=== PATIENT | male | born 1940 | race Caucasian/White ===

== ENCOUNTER → 2016-08-21 | Outpatient (CLI) | payer OTHER ==
[2016-08-21 10:50] LABS: ABSOLUTE BASOPHILS # (AUTO) 0.1 10^3/uL (0.0-0.2); ABSOLUTE EOSINOPHILS # (AUTO) 0.3 10^3/uL (0.0-0.6); ABSOLUTE LYMPHOCYTES (AUTO) 1.8 10^3/uL (0.5-4.7); ABSOLUTE MONOCYTES (AUTO) 0.5 10^3/uL (0.1-1.4); ABSOLUTE NEUT (AUTO) 4.9 10^3/uL (1.7-8.2); BASOPHILS % (AUTO) 0.8 % (0-2); EOSINOPHILS % (AUTO) 3.5 % (0-6); HEMATOCRIT 44.9 % (37.9-51.0); HEMOGLOBIN 14.9 g/dL (13.5-17.0); HGB HCT DIFFERENCE -0.2; LYMPHOCYTES % (AUTO) 24.3 % (13-45); MEAN CORPUSCULAR HEMOGLOBIN 28.8 pg (27.0-33.4); MEAN CORPUSCULAR HGB CONC 33.1 g/dL (32.0-36.0); MEAN CORPUSCULAR VOLUME 87 fl (80-97); MONOCYTES % (AUTO) 6.6 % (3-13); RED BLOOD COUNT 5.18 10^6/uL (4.35-5.55); RED CELL DISTRIBUTION WIDTH 16.1 % (11.5-14.0); SEGMENTED NEUTROPHILS % (AUTO) 64.8 % (42-78); WHITE BLOOD COUNT 7.6 10^3/uL (4.0-10.5)
[2016-08-21 10:55] LABS: APPEARANCE,URINE CLEAR; BILIRUBIN,URINE NEGATIVE (NEGATIVE); GLUCOSE, URINE NEGATIVE (NEGATIVE); KETONES,URINE NEGATIVE (NEGATIVE); LEUKOCYTE ESTERASE,URINE NEGATIVE (NEGATIVE); NITRITE,URINE NEGATIVE (NEGATIVE); PROTEIN,URINE NEGATIVE (NEGATIVE); URINE SPECIFIC GRAVITY 1.014; UROBILINOGEN,URINE NEGATIVE mg/dL (<2.0)
[2016-08-21 11:12] LABS: ALBUMIN 4.4 g/dL (3.5-5.0); ANION GAP 13 (5-19); BLOOD UREA NITROGEN 23 mg/dL (7-20); CALCIUM 9.3 mg/dL (8.4-10.2); CARBON DIOXIDE 23 mmol/L (22-30); CHLORIDE 103 mmol/L (98-107); CREATININE RESULT 1.44 mg/dL (0.52-1.25); GLUCOSE 117 mg/dL (75-110); PHOSPHORUS 3.8 mg/dL (2.5-4.5); POTASSIUM 4.4 mmol/L (3.6-5.0); SODIUM 138.5 mmol/L (137-145)
[2016-08-21 11:13] LABS: URINE CREATININE 133.6 mg/dL (22-328); URINE PROTEIN 12.6 mg/dL (<12)
[2016-08-24 07:04] LABS: VITAMIN D 25-HYDROXY 23.6 ng/mL (30.0-100.0)
== END ==
LOC: OD 09:55
PROVIDERS: ATTEND Internal Medicine Nephrology
DX: N18.3 Chronic kidney disease, stage 3 (moderate) (principal); R80.9 Proteinuria, unspecified; D63.1 Anemia in chronic kidney disease
CPT/HCPCS: 36415; 80048; 81001; 82040; 82306; 82570; 83970; 84100; 84156; 85025

== ENCOUNTER → 2017-02-14 | Outpatient (CLI) | payer OTHER ==
[2017-02-14 15:11] LABS: HEMATOCRIT 43.6 % (37.9-51.0); HEMOGLOBIN 14.3 g/dL (13.5-17.0); MEAN CORPUSCULAR HEMOGLOBIN 28.6 pg (27.0-33.4); MEAN CORPUSCULAR HGB CONC 32.8 g/dL (32.0-36.0); MEAN CORPUSCULAR VOLUME 87 fl (80-97); PLATELET COUNT 248 10^3/uL (150-450); RED CELL DISTRIBUTION WIDTH 15.5 % (11.5-14.0); WHITE BLOOD COUNT 7.2 10^3/uL (4.0-10.5)
[2017-02-14 15:14] LABS: APPEARANCE,URINE CLEAR; BILIRUBIN,URINE NEGATIVE (NEGATIVE); COLOR,URINE YELLOW; GLUCOSE, URINE NEGATIVE (NEGATIVE); KETONES,URINE NEGATIVE (NEGATIVE); LEUKOCYTE ESTERASE,URINE NEGATIVE (NEGATIVE); NITRITE,URINE NEGATIVE (NEGATIVE); PROTEIN,URINE NEGATIVE (NEGATIVE); URINE SPECIFIC GRAVITY 1.019; UROBILINOGEN,URINE NEGATIVE mg/dL (<2.0)
[2017-02-14 15:25] LABS: ALANINE AMINOTRANSFERASE 47 U/L (21-72); ALBUMIN 4.6 g/dL (3.5-5.0); ALKALINE PHOSPHATASE 81 U/L (38-126); ANION GAP 13 (5-19); ASPARTATE AMINO TRANSFERASE 27 U/L (17-59); BILIRUBIN,DIRECT 0.3 mg/dL (0.0-0.4); BILIRUBIN,TOTAL 0.3 mg/dL (0.2-1.3); BLOOD UREA NITROGEN 25 mg/dL (7-20); CALCIUM 9.8 mg/dL (8.4-10.2); CARBON DIOXIDE 24 mmol/L (22-30); CHLORIDE 104 mmol/L (98-107); GLUCOSE 101 mg/dL (75-110); POTASSIUM 4.1 mmol/L (3.6-5.0); SODIUM 141.1 mmol/L (137-145); TOTAL PROTEIN 7.6 g/dL (6.3-8.2)
== END ==
LOC: OD 14:25
PROVIDERS: ATTEND Internal Medicine Nephrology
DX: I12.9 Hypertensive chronic kidney disease with stage 1 through stage 4 chronic kidney disease, or unspecified chronic kidney disease (principal); N18.3 Chronic kidney disease, stage 3 (moderate); R80.9 Proteinuria, unspecified; E11.9 Type 2 diabetes mellitus without complications
CPT/HCPCS: 36415; 80053; 81001; 85027

== ENCOUNTER → 2017-11-18 | Outpatient (CLI) | payer OTHER ==
[2017-11-18 09:31] LABS: HEMATOCRIT 43.8 % (37.9-51.0); HEMOGLOBIN 14.7 g/dL (13.5-17.0); MEAN CORPUSCULAR HEMOGLOBIN 29.3 pg (27.0-33.4); MEAN CORPUSCULAR HGB CONC 33.5 g/dL (32.0-36.0); MEAN CORPUSCULAR VOLUME 88 fl (80-97); PLATELET COUNT 206 10^3/uL (150-450); RED CELL DISTRIBUTION WIDTH 15.4 % (11.5-14.0); WHITE BLOOD COUNT 7.2 10^3/uL (4.0-10.5)
[2017-11-18 09:37] LABS: APPEARANCE,URINE CLEAR; BILIRUBIN,URINE NEGATIVE (NEGATIVE); COLOR,URINE YELLOW; GLUCOSE, URINE NEGATIVE (NEGATIVE); KETONES,URINE NEGATIVE (NEGATIVE); LEUKOCYTE ESTERASE,URINE NEGATIVE (NEGATIVE); NITRITE,URINE NEGATIVE (NEGATIVE); PROTEIN,URINE NEGATIVE (NEGATIVE); URINE SPECIFIC GRAVITY 1.016
[2017-11-18 10:04] LABS: ANION GAP 12 (5-19); BLOOD UREA NITROGEN 18 mg/dL (7-20); CALCIUM 9.4 mg/dL (8.4-10.2); CARBON DIOXIDE 26 mmol/L (22-30); CHLORIDE 103 mmol/L (98-107); GLUCOSE 92 mg/dL (75-110); POTASSIUM 4.2 mmol/L (3.6-5.0); SODIUM 140.5 mmol/L (137-145)
== END ==
LOC: OD 08:46
PROVIDERS: ATTEND Physician Assistant Medical
DX: I12.9 Hypertensive chronic kidney disease with stage 1 through stage 4 chronic kidney disease, or unspecified chronic kidney disease (principal); E11.22 Type 2 diabetes mellitus with diabetic chronic kidney disease; N18.3 Chronic kidney disease, stage 3 (moderate); R80.9 Proteinuria, unspecified
CPT/HCPCS: 36415; 80048; 81001; 85027

== ENCOUNTER 2019-09-18 17:21 | Observation (INO) | payer OTHER, MEDICARE ==
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
--- NOTE | 2019-09-18 18:39 | RADIOLOGY REPORT (SQ) ---
EXAM DESCRIPTION: CHEST 2 VIEWS IMAGES COMPLETED DATE/TIME: 09/18/2019 6:22 pm REASON FOR STUDY: chest pain COMPARISON: None. EXAM PARAMETERS: NUMBER OF VIEWS: two views TECHNIQUE: Digital Frontal and Lateral radiographic views of the chest acquired. RADIATION DOSE: NA LIMITATIONS: none FINDINGS: LUNGS AND PLEURA: Hyperinflation of the lungs and some flattening of the diaphragms. Bib asilar slight scarring or atelectasis. Mild increased interstitial markings in the right lower lung zone, may be on a chronic basis. No pneumothorax or pleural effusion. MEDIASTINUM AND HILAR STRUCTURES: No masses or contour abnormalities. HEART AND VASCULAR STRUCTURES: Cardiomegaly. No evidence for failure. BONES: No acute findings. HARDWARE: Prior anterior median sternotomy and CABG. OTHER: No other significant finding. IMPRESSION: 1. Chronic mild changes in the lungs. No acute pulmonary consolidation. 2. Additional findings as above. TECHNICAL DOCUMENTATION: JOB ID: [id number] 2010 [employer]- All Rights Reserved Reading location - IP/workstation name: [email or web address]
--- NOTE | 2019-09-18 18:45 | RADIOLOGY REPORT (SQ) ---
EXAM DESCRIPTION: CT HEAD WITHOUT IMAGES COMPLETED DATE/TIME: 09/18/2019 6:25 pm REASON FOR STUDY: syncopal events daily, on anticoagulants COMPARISON: None. TECHNIQUE: Axial images acquired through the brain without intravenous contrast. Images reviewed wi th bone, brain and subdural windows. Additional sagittal and coronal reconstructions were generated. Images stored on PACS. All CT scanners at this facility use dose modulation, iterative reconstruction, and/or weight based d osing when appropriate to reduce radiation dose to as low as reasonably achievable (ALARA). [facility]: Dose Right [facility]: CareDose [facility]: Dose Right [facility]: Teradose 4D [facility]: uSamp RADIATION DOSE: CT Rad equipment meets quality standard of care and radiation dose reduction techniq ues were employed. CTDIvol: 53.2 mGy. DLP: 1044 mGy-cm. LIMITATIONS: None. FINDINGS: VENTRICLES: Normal size and contour. The cisterns are patent. CEREBRUM: No masses. No hemorrhage. No midline shift. No evidence for acute infarction. Normal gra y/white matter differentiation. No areas of low density in the white matter. CEREBELLUM: No masses. No hemorrhage. No alteration of density. No evidence for acute infarction. EXTRAAXIAL SPACES: No fluid collections. No masses. ORBITS AND GLOBE: No intra- or extraconal masses. Normal contour of globe without masses. CALVARIUM: No fracture. PARANASAL SINUSES: No fluid or mucosal thickening. SOFT TISSUES: No mass or hematoma. OTHER: Atherosclerotic changes involving the cavernous portion of the internal carotid arteries. IMPRESSION: 1. No acute intracranial abnormality. EVIDENCE OF ACUTE STROKE: NO. COMMENT: Quality ID # [id number]: Final reports with documentation of one or more dose reduction techniques (e.g., Automated exposure control, adjustment of the mA and/or kV according to patient size, use of iterative reconstruction technique) TECHNICAL DOCUMENTATION: JOB ID: [id number] 2010 [employer]- All Rights Reserved Reading location - IP/workstation name: [email or web address]
[2019-09-18 18:51] LABS: ALBUMIN 4.3 g/dL (3.5-5.0); ALKALINE PHOSPHATASE 72 U/L (38-126); ANION GAP 8 (5-19); ASPARTATE AMINO TRANSFERASE 28 U/L (17-59); BILIRUBIN,DIRECT 0.1 mg/dL (0.0-0.4); BILIRUBIN,TOTAL 0.6 mg/dL (0.2-1.3); BLOOD UREA NITROGEN 26 mg/dL (7-20); CALCIUM 8.9 mg/dL (8.4-10.2); CARBON DIOXIDE 31 mmol/L (22-30); CHLORIDE 96 mmol/L (98-107); CREATINE KINASE 116 U/L (55-170); GLUCOSE 100 mg/dL (75-110); POTASSIUM 3.2 mmol/L (3.6-5.0); TOTAL PROTEIN 7.9 g/dL (6.3-8.2)
[2019-09-18 18:56] LABS: ABSOLUTE BASOPHILS # (AUTO) 0.1 10^3/uL (0.0-0.2); ABSOLUTE EOSINOPHILS # (AUTO) 0.3 10^3/uL (0.0-0.6); ABSOLUTE NEUT (AUTO) 5.2 10^3/uL (1.7-8.2); BASOPHILS % (AUTO) 1.2 % (0-2); EOSINOPHILS % (AUTO) 3.9 % (0-6); HEMATOCRIT 29.1 % (37.9-51.0); HEMOGLOBIN 9.3 g/dL (13.5-17.0); LYMPHOCYTES % (AUTO) 22.8 % (13-45); MEAN CORPUSCULAR HEMOGLOBIN 24.6 pg (27.0-33.4); MEAN CORPUSCULAR VOLUME 77 fl (80-97); MONOCYTES % (AUTO) 11.5 % (3-13); PLATELET COUNT 377 10^3/uL (150-450); RED BLOOD COUNT 3.78 10^6/uL (4.35-5.55); RED CELL DISTRIBUTION WIDTH 18.3 % (11.5-14.0); SEGMENTED NEUTROPHILS % (AUTO) 60.6 % (42-78); TOTAL CELLS COUNTED % (AUTO) 100 %; WHITE BLOOD COUNT 8.6 10^3/uL (4.0-10.5)
[2019-09-18 19:04] LABS: CREATINE KINASE MB 1.49 ng/mL (<4.55); TROPONIN I 0.016 ng/mL
--- NOTE | 2019-09-18 19:38 | EKG REPORT ---
SEVERITY:- ABNORMAL ECG - ATRIAL FIBRILLATION RBBB AND LAFB : Confirmed by: Ayush Prater MD 18-Sep-2019 19:37:51
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
[2019-09-18] MEDS ORDERED: NITROGLYCERIN 0.4 MG/TAB 25 TAB/BOTTLE SL PRN (23:23)
[2019-09-18] MEDS ORDERED: ONDANSETRON HCL INJ/PF 4 MG/2 ML SDV IV PRN (23:24)
[2019-09-18] MEDS ORDERED: ACETAMINOPHEN 325 MG TABLET PO PRN (23:24)
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
[2019-09-18] MEDS: METOPROLOL SUCCINATE 25 MG TAB.SR.24H PO SCH (23:57)
[2019-09-18] MEDS ORDERED: POTASSIUM CHLORIDE 10 MEQ TABLET.ER PO ONE (23:59)
[2019-09-18] MEDS ORDERED: ASPIRIN 325 MG TABLET PO ONE (23:59)
[2019-09-19 02:16] LABS: CREATINE KINASE MB 1.36 ng/mL (<4.55); TROPONIN I 0.02 ng/mL
[2019-09-19] MEDS ORDERED: HEPARIN SOD (PORCINE) 5,000 UNIT/ML 1 ML VIAL SUBCUT SCH (06:00)
[2019-09-19] MEDS: NORMAL SALINE 1000 ML 1,000 ML IV PRN ×2 (06:08→17:12)
[2019-09-19 07:55] LABS: HEMATOCRIT 28.4 % (37.9-51.0); MEAN CORPUSCULAR HEMOGLOBIN 24.2 pg (27.0-33.4); MEAN CORPUSCULAR HGB CONC 31.6 g/dL (32.0-36.0); MEAN CORPUSCULAR VOLUME 76 fl (80-97); PLATELET COUNT 339 10^3/uL (150-450); RED BLOOD COUNT 3.71 10^6/uL (4.35-5.55)
[2019-09-19 08:19] LABS: ANION GAP 9 (5-19); BLOOD UREA NITROGEN 26 mg/dL (7-20); CALCIUM 8.9 mg/dL (8.4-10.2); CARBON DIOXIDE 27 mmol/L (22-30); CHLORIDE 99 mmol/L (98-107); CREATINE KINASE 106 U/L (55-170); GLUCOSE 106 mg/dL (75-110); POTASSIUM 3.7 mmol/L (3.6-5.0)
[2019-09-19 08:53] LABS: CREATINE KINASE MB 1.37 ng/mL (<4.55); TROPONIN I 0.018 ng/mL
--- NOTE | 2019-09-19 09:26 | CDI QUERY ---
CDI Query CDI Review: Dear Provider, If able to determine, please further specify type A FIB noted in progress notes. PAROXYSMAL PERSISTENT OTHER Thanks, Neda Babcock, CDI [phone]
[2019-09-19] MEDS: ASPIRIN 325 MG TABLET PO SCH (09:40)
[2019-09-19] MEDS: METOPROLOL SUCCINATE 25 MG TAB.SR.24H PO SCH ×2 (09:41→22:25)
[2019-09-19] MEDS ORDERED: APIXABAN 5 MG TABLET PO SCH (10:00)
--- NOTE | 2019-09-19 13:41 | PDOC PROGRESS REPORT ---
Subjective Progress Note for:: 09/19/19 Subjective:: Patient was seen on morning rounds. He was found sitting up to the edge of the bed, comfortably, on room air. He reports that he is feeling well; denies any further episodes of chest discomfort. Further denies palpitations and dyspnea. At that time he chose to take a phone call and had no further interactions with me. He did nod his head yes when asked if I could continue with my assessment. No concerns per nursing. Reason For Visit: CHEST PAIN, CKD, HYPOKALEMIA Physical Exam Vital Signs: Temp Pulse Resp BP Pulse Ox 97.6 F 76 18 132/54 H 98 09/19/19 11:08 09/19/19 11:08 09/19/19 11:08 09/19/19 11:08 09/19/19 11:08 Intake & Output 09/18/19 09/19/19 09/20/19 06:59 06:59 06:59 Intake Total 595 Balance 595 Weight 117.9 kg General appearance: PRESENT: no acute distress, disheveled, morbidly obese, well-developed, well-nourished Head exam: PRESENT: atraumatic, normocephalic Eye exam: PRESENT: conjunctiva pink, EOMI, PERRLA. ABSENT: scleral icterus Mouth exam: PRESENT: moist, tongue midline Teeth exam: PRESENT: poor dentation Respiratory exam: PRESENT: clear to auscultation varsha, symmetrical, unlabored. ABSENT: rales, rhonchi, wheezes Cardiovascular exam: PRESENT: irregular rhythm, +S1, +S2. ABSENT: diastolic murmur, rubs, systolic murmur Pulses: PRESENT: normal dorsalis pedis pul Vascular exam: PRESENT: normal capillary refill GI/Abdominal exam: PRESENT: normal bowel sounds, soft. ABSENT: distended, guarding, mass, organolmegaly, rebound, tenderness Rectal exam: PRESENT: deferred Extremities exam: PRESENT: full ROM. ABSENT: calf tenderness, clubbing, pedal edema Musculoskeletal exam: PRESENT: ambulatory Neurological exam: PRESENT: alert, awake, oriented to person, oriented to place, oriented to time, oriented to situation, CN II-XII grossly intact. ABSENT: motor sensory deficit Psychiatric exam: PRESENT: appropriate affect, normal mood. ABSENT: homicidal ideation, suicidal ideation Skin exam: PRESENT: dry, intact, warm. ABSENT: cyanosis, rash Results Laboratory Results: 09/19/19 07:37 09/19/19 07:37 09/18/19 09/18/19 09/19/19 18:10 18:10 07:37 WBC 8.6 RBC 3.78 L Hgb 9.3 L Hct 29.1 L MCV 77 L MCH 24.6 L MCHC 32.0 RDW 18.3 H Plt Count 377 Seg Neutrophils % 60.6 Sodium 134.8 L 135.3 L Potassium 3.2 L 3.7 Chloride 96 L 99 Carbon Dioxide 31 H 27 Anion Gap 8 9 BUN 26 H 26 H Creatinine 2.56 H 2.49 H Est GFR ( Amer) 30 L 31 L Glucose 100 106 Calcium 8.9 8.9 Total Bilirubin 0.6 AST 28 Alkaline Phosphatase 72 Total Protein 7.9 Albumin 4.3 09/19/19 07:37 WBC 8.0 RBC 3.71 L Hgb 9.0 L Hct 28.4 L MCV 76 L MCH 24.2 L MCHC 31.6 L RDW 18.0 H Plt Count 339 Seg Neutrophils % Sodium Potassium Chloride Carbon Dioxide Anion Gap BUN Creatinine Est GFR ( Amer) Glucose Calcium Total Bilirubin AST Alkaline Phosphatase Total Protein Albumin 09/18/19 09/18/19 09/18/19 18:10 18:10 19:10 Creatine Kinase 116 CK-MB (CK-2) 1.49 Troponin I 0.016 0.016 NT-Pro-B Natriuret Pep 2009 H 09/19/19 09/19/19 09/19/19 01:06 01:06 07:37 Creatine Kinase 111 106 CK-MB (CK-2) 1.36 Troponin I 0.020 NT-Pro-B Natriuret Pep 09/19/19 07:37 Creatine Kinase CK-MB (CK-2) 1.37 Troponin I 0.018 NT-Pro-B Natriuret Pep Impressions: Chest X-Ray 09/18/19 18:00 IMPRESSION: 1. Chronic mild changes in the lungs. No acute pulmonary consolidation. 2. Additional findings as above. Head CT 09/18/19 18:04 IMPRESSION: 1. No acute intracranial abnormality. EVIDENCE OF ACUTE STROKE: NO. Assessment and Plan - Diagnosis (1) Chest pain Qualifiers: Chest pain type: unspecified Qualified Code(s): R07.9 - Chest pain, unspecified Is this a current diagnosis for this admission?: Yes Plan: No further episodes per patient. Continue to monitor on telemetry. Troponins indeterminately elevated but overall negative; 0.016-> 0.016-> 0.020- > 0.018 Continue daily statin resume home dose Xarelto antihypertensives. Patient reports that he has had a cardiac stress test by his primary gas booster engineer, [facility], within the last year. Close outpatient follow-up. (2) Acute renal failure superimposed on chronic kidney disease Qualifiers: Acute renal failure type: unspecified Chronic kidney disease stage: stage 3 (moderate) Qualified Code(s): N17.9 - Acute kidney failure, unspecified; N18.3 - Chronic kidney disease, stage 3 (moderate) Is this a current diagnosis for this admission?: Yes Plan: Cr 2.56-> 2.49 Last lab for comparison in 2018 showed creatinine 1.65. It is possible that his creatinine today represents progression of his chronic kidney disease and not an acute injury. We will continue gentle IV fluids. Avoid nephrotoxic medications as able. Monitor urine output. Follow-up chemistry (3) Atrial fibrillation Qualifiers: Atrial fibrillation type: unspecified Qualified Code(s): I48.91 - Unspecified atrial fibrillation Is this a current diagnosis for this admission?: Yes Plan: Unable to determine type of atrial fibrillation. Patient is unaware of his rhythm history; does state he has been told he has an abnormal rhythm in the past. Noted to be in atrial fibrillation on EKG and telemetry. All medications have now been reconciled. We will continue home dose Xarelto. Continue home dose amiodarone and metoprolol. Continue to monitor on telemetry. (4) Syncope Qualifiers: Syncope type: unspecified Qualified Code(s): R55 - Syncope and collapse Is this a current diagnosis for this admission?: Yes Plan: Possibly from his atrial fibrillation. Echocardiogram pending. Fall precautions. - Time Time Spent with patient: 35 or more minutes Medications reviewed and adjusted accordingly: Yes Anticipated Discharge Disposition: Home, Self Care Anticipated Discharge Timeframe: within 24 hours
[2019-09-19 14:52] LABS: CREATINE KINASE MB 1.37 ng/mL (<4.55); TROPONIN I 0.016 ng/mL
--- NOTE | 2019-09-19 15:03 | EKG REPORT ---
SEVERITY:- ABNORMAL ECG - ATRIAL FIBRILLATION RIGHT BUNDLE BRANCH BLOCK : Confirmed by: Ayush Prater MD 19-Sep-2019 15:02:26
--- NOTE | 2019-09-19 15:45 | XCELERA REPORT ---
[address] [address] Transthoracic Echocardiogram Report Name: FIDENCIO BARRIOS Age: 78 yrs Gender: Male : 1940 Patient Status: Inpatient Patient Location: [address] [place], [place] [address] Study Date: 09/19/2019 10:24 AM History: Atrial fibrillation Syncope Height: 72 in Weight: 260 lb BSA: 2.4 m2 Procedure: A complete two-dimensional transthoracic echocardiogram was performed (2D, M-mode, spectral and color flow Doppler). The study was technically difficult with many images being suboptimal in quality. Study Quality: Technically suboptimal. Reason For Study: afib, syncope Previous Evaluation: No previous studies were available. History: Atrial fibrillation Suyncope. Ordering Physician: KIMO RAMIREZ Performed By: Millie Mayorga Interpretation Summary Left ventricular systolic function is normal. The Ejection Fraction estimate is 55-60% The right ventricle is normal in size and function. There is a mild amount of mitral regurgitation There is no aortic valve stenosis There is a trace amount of aortic regurgitation There is a trace amount of tricuspid regurgitation There is mild pulmonary hypertension by echo Minimal pericardial effusion. MMode/2D Measurements & Calculations RVDd: 4.1 cm LVIDd: 5.1 cm FS: 33.8 % Ao root diam: 3.2 cm IVSd: 1.1 cm LVIDs: 3.4 cm EDV(Teich): 122.3 ml Ao root area: 7.9 cm2 LVPWd: 1.1 cm ESV(Teich): 46.1 ml LA dimension: 4.1 cm EF(Teich): 62.3 % Doppler Measurements & Calculations MV E max damari: MV P1/2t max damari: Ao V2 max: LV V1 max P.4 cm/sec 123.9 cm/sec 160.6 cm/sec 5.1 mmHg MV A max damari: MV P1/2t: 79.3 msec Ao max PG: LV V1 max: 103.7 cm/sec MVA(P1/2t): 2.8 cm2 10.3 mmHg 113.0 cm/sec MV E/A: 1.2 MV dec slope: LV dP/dt: 3029 mmHg/s 457.4 cm/sec2 MV dec time: 0.26 sec PA V2 max: TR max damari: MV P1/2t-pr_phl: 107.1 cm/sec 266.0 cm/sec 79.3 msec PA max P.6 mmHgTR max P.3 mmHg Left Ventricle The left ventricle is grossly normal size. There is moderate concentric left ventricular hypertrophy. Left ventricular systolic function is normal. The Ejection Fraction estimate is 55-60%. LV diastolic function not assessed. Regional wall motion abnormalities cannot be excluded due to limited visualization. Right Ventricle The right ventricle is normal in size and function. Mitral Valve The mitral valve is grossly normal. There is no mitral valve stenosis. There is a mild amount of mitral regurgitation. Aortic Valve The aortic valve is sclerotic and shows some degree of functional abnormality. The aortic valve is mildly calcified. There is no aortic valve stenosis. There is a trace amount of aortic regurgitation. Tricuspid Valve The tricuspid valve is normal in structure and function. There is no tricuspid stenosis. There is a trace amount of tricuspid regurgitation. Best estimated right ventricular systolic pressure is elevated at 30-40mmHg. There is mild pulmonary hypertension by echo. Pulmonic Valve The pulmonic valve is normal in structure and function. Great Vessels The aortic root is normal size. The inferior vena cava appeared dilated and decreased < 50% with respiration (RAP 15-20 mmHg). Effusions Minimal pericardial effusion. : KIMO RAMIREZ Anil
[2019-09-19] MEDS: OMEGA-3 ACID ETHYL ESTERS 1 GM CAPSULE PO SCH (17:12)
[2019-09-19] MEDS ORDERED: RIVAROXABAN 15 MG TABLET PO SCH (18:00)
[2019-09-19] MEDS ORDERED: (PENDING PHARMACY ID) (Omega-3/Dha/Epa/Fish Oil [Fish Oil 1,000 Mg Softgel] 1 EACH) PO SCH (18:00)
[2019-09-19] MEDS ORDERED: ATORVASTATIN CALCIUM 40 MG TABLET PO SCH (22:00)
[2019-09-19] MEDS: METOPROLOL TARTRATE 25 MG TABLET PO SCH (22:25)
[2019-09-19] MEDS ORDERED: MELATONIN 3 MG TABLET PO PRN (23:03)
[2019-09-20 06:00] LABS: ABSOLUTE RETICS # 0.086 10^6/uL (0.028-0.122); HEMATOCRIT 26.9 % (37.9-51.0); HEMOGLOBIN 8.4 g/dL (13.5-17.0); MEAN CORPUSCULAR HEMOGLOBIN 24.2 pg (27.0-33.4); MEAN CORPUSCULAR HGB CONC 31.2 g/dL (32.0-36.0); MEAN CORPUSCULAR VOLUME 78 fl (80-97); PLATELET COUNT 336 10^3/uL (150-450); RED BLOOD COUNT 3.47 10^6/uL (4.35-5.55); RED CELL DISTRIBUTION WIDTH 17.9 % (11.5-14.0); RETICULOCYTE COUNT (AUTO) 2.49 % (0.66-2.85); WHITE BLOOD COUNT 7.1 10^3/uL (4.0-10.5)
[2019-09-20 06:21] LABS: ANION GAP 8 (5-19); BLOOD UREA NITROGEN 25 mg/dL (7-20); CALCIUM 8.5 mg/dL (8.4-10.2); CARBON DIOXIDE 24 mmol/L (22-30); CHLORIDE 102 mmol/L (98-107); GLUCOSE 112 mg/dL (75-110); IRON(TIBC) 28.4 ug/dL (49-181); POTASSIUM 3.8 mmol/L (3.6-5.0)
[2019-09-20] MEDS: NORMAL SALINE 1000 ML 1,000 ML IV PRN (06:54)
[2019-09-20 07:27] LABS: FOLATE 5.47 ng/mL (>2.76)
[2019-09-20] MEDS ORDERED: LEVOTHYROXINE SODIUM 0.05 MG TABLET PO SCH (08:00)
[2019-09-20] MEDS: METOPROLOL SUCCINATE 25 MG TAB.SR.24H PO SCH (09:13)
[2019-09-20] MEDS: METOPROLOL TARTRATE 25 MG TABLET PO SCH (09:13)
[2019-09-20] MEDS: OMEGA-3 ACID ETHYL ESTERS 1 GM CAPSULE PO SCH (09:14)
[2019-09-20] MEDS: ASPIRIN 325 MG TABLET PO SCH (09:14)
[2019-09-20 09:58] VITALS: BP 117/59
[2019-09-20] MEDS ORDERED: FLUTICASONE/VILANTEROL 200-25 MCG/DOSE IH SCH (10:00)
[2019-09-20] MEDS ORDERED: AMLODIPINE BESYLATE 10 MG TABLET PO SCH (10:00)
[2019-09-20] MEDS ORDERED: AMIODARONE HCL 200 MG TABLET PO SCH (10:00)
--- NOTE | 2019-09-23 08:04 | PDOC DISCHARGE SUMMARY ---
Impression - Admit/DC Date/PCP Admission Date/Primary Care Provider: 09/18/19 23:40 Discharge Date: 09/20/19 - Discharge Diagnosis (1) Chest pain Is this a current diagnosis for this admission?: Yes (2) Acute renal failure superimposed on chronic kidney disease Is this a current diagnosis for this admission?: Yes (3) Atrial fibrillation Is this a current diagnosis for this admission?: Yes (4) Syncope Is this a current diagnosis for this admission?: Yes - Additional Information Discharge Diet: Cardiac Discharge Activity: Activity As Tolerated, Balance Activity w/Rest, Slowly Increase Activity, Weigh Daily Referrals: RAFAEL TOSCANO PA-C [ALLIED HEALTH PROFESSIONAL] - 10/03/19 3:40 pm (Follow up within 1 week.) Home Medications: Albuterol Sulfate [Proair HFA Inhalation Aerosol 8.5 gm MDI] 2 puff IH Q4HP PRN 09/19/19 Amiodarone HCl [Cordarone 200 mg Tablet] 200 mg PO DAILY 09/19/19 Amlodipine Besylate [Norvasc 10 mg Tablet] 10 mg PO DAILY 09/19/19 Atorvastatin Calcium [Lipitor 40 mg Tablet] 40 mg PO QHS 09/19/19 Budesonide/Formoterol Fumarate [Symbicort HFA 160-4.5 mcg Inhaler 6 gm] 2 puff IH Q12 09/19/19 Levothyroxine Sodium [Synthroid 0.05 mg Tablet] 50 mcg PO QAM 09/19/19 Metoprolol Tartrate [Lopressor 25 mg Tablet] 25 mg PO Q12 09/19/19 [place]-3/Dha/Epa/Fish Oil [Fish Oil 1,000 mg Softgel] 1 each PO BID 09/19/19 Rivaroxaban [Xarelto 15 mg Tablet] 15 mg PO DAILY 09/19/19 Tramadol HCl [Ultram 50 mg Tablet] 50 mg PO TIDP PRN 09/19/19 History of Present Illiness History of Present Illness: Per H&P by Dr. Steward: FIDENCIO BARRIOS is a 78 year old male who notes he has a history of coronary artery disease and atrial fibrillation but does not know the names of any of his medications and does not know the names of any of his doctors. He did have written down that he sees Dr. Leary at [facility]. [facility] and he apparently follows up with Rafael Toscano. He came into the ER because he has had spells of nearly passing out for 5 days, and apparently that was not enough to convince him to seek medical attention, but he then had short episodes of sharp nonradiating midsternal chest pain today while he was sitting in the truck waiting for his daughter to come out of some building. He says that it is very short episodes that last for only a second and then passed. He said he thinks he had a stress test a little over 6 months ago but is not exactly sure when. He has baseline chronic kidney disease and his last set of numbers we have on him is from about 2 years ago and his creatinine is worse from then. He says that a couple weeks ago his kidney specialist put him on Lasix for a couple of weeks because he had some leg swelling. This at least probably explains why his potassium was just a little bit low. Hospital Course Hospital Course: (1) Chest pain No further episodes per patient. Continue to monitor on telemetry. Troponins indeterminately elevated but overall negative; 0.016-> 0.016-> 0.020- > 0.018 Continue daily statin, Xarelto, and antihypertensives. Patient reports that he has had a cardiac stress test by his primary cloth weaver, [facility], within the last year. Echocardiogram was reassuring. Close outpatient follow-up. (2) Acute renal failure superimposed on chronic kidney disease Patient did not have acute renal failure; his creatinine represents his baseline function. PCP is PETER Cardenas (hse coordinator) Cr 2.56-> 2.49 Last lab for comparison in 2018 showed creatinine 1.65. Patient did receive 3 L IV fluids without change/improvement in creatinine Follow-up with PCP within 1 week. (3) Atrial fibrillation Unable to determine type of atrial fibrillation. Patient is unaware of his rhythm history; does state he has been told he has an abnormal rhythm in the past. Noted to be in atrial fibrillation on EKG and telemetry. All medications have now been reconciled. We will continue home dose Xarelto. Continue home dose amiodarone and metoprolol. Outpatient cardiology follow-up. (4) Syncope Possibly from his atrial fibrillation. Echocardiogram. LVEF 55 to 60% with mild amount of mitral regurgitation, trace aortic regurg, trace tricuspid regurg, mild pulmonary hypertension. Fall precautions. Physical Exam Vital Signs: Temp Pulse Resp BP Pulse Ox 98.1 F 99 18 117/59 L 95 09/20/19 13:10 09/20/19 13:10 09/20/19 13:10 09/20/19 07:41 09/20/19 13:10 General appearance: PRESENT: no acute distress, disheveled, morbidly obese, well-developed, well-nourished Head exam: PRESENT: atraumatic, normocephalic Eye exam: PRESENT: conjunctiva pink, EOMI, PERRLA. ABSENT: scleral icterus Mouth exam: PRESENT: moist, tongue midline Teeth exam: PRESENT: poor dentation Respiratory exam: PRESENT: clear to auscultation varsha, symmetrical, unlabored. ABSENT: rales, rhonchi, wheezes Cardiovascular exam: PRESENT: irregular rhythm, +S1, +S2. ABSENT: diastolic murmur, rubs, systolic murmur Pulses: PRESENT: normal dorsalis pedis pul Vascular exam: PRESENT: normal capillary refill Extremities exam: PRESENT: full ROM. ABSENT: calf tenderness, clubbing, pedal edema Musculoskeletal exam: PRESENT: ambulatory Neurological exam: PRESENT: alert, awake, oriented to person, oriented to place, oriented to time, oriented to situation, CN II-XII grossly intact. ABSENT: motor sensory deficit Psychiatric exam: PRESENT: appropriate affect, normal mood. ABSENT: homicidal ideation, suicidal ideation Skin exam: PRESENT: dry, intact, warm. ABSENT: cyanosis, rash Results Laboratory Results: WBC 7.1 10^3/uL (4.0-10.5) 09/20/19 05:07 RBC 3.47 10^6/uL (4.35-5.55) L 09/20/19 05:07 Hgb 8.4 g/dL (13.5-17.0) L 09/20/19 05:07 Hct 26.9 % (37.9-51.0) L 09/20/19 05:07 MCV 78 fl (80-97) L 09/20/19 05:07 MCH 24.2 pg (27.0-33.4) L 09/20/19 05:07 MCHC 31.2 g/dL (32.0-36.0) L 09/20/19 05:07 RDW 17.9 % (11.5-14.0) H 09/20/19 05:07 Plt Count 336 10^3/uL (150-450) 09/20/19 05:07 Lymph % (Auto) 22.8 % (13-45) 09/18/19 18:10 [place] % (Auto) 11.5 % (3-13) 09/18/19 18:10 Eos % (Auto) 3.9 % (0-6) 09/18/19 18:10 Baso % (Auto) 1.2 % (0-2) 09/18/19 18:10 Reticulocyte # 0.086 10^6/uL (0.028-0.122) 09/20/19 05:07 Absolute Neuts (auto) 5.2 10^3/uL (1.7-8.2) 09/18/19 18:10 Absolute Lymphs (auto) 2.0 10^3/uL (0.5-4.7) 09/18/19 18:10 Absolute Monos (auto) 1.0 10^3/uL (0.1-1.4) 09/18/19 18:10 Absolute Eos (auto) 0.3 10^3/uL (0.0-0.6) 09/18/19 18:10 Absolute Basos (auto) 0.1 10^3/uL (0.0-0.2) 09/18/19 18:10 Seg Neutrophils % 60.6 % (42-78) 09/18/19 18:10 Retic Count (auto) 2.49 % (0.66-2.85) 09/20/19 05:07 Sodium 134.0 mmol/L (137-145) L 09/20/19 05:07 Potassium 3.8 mmol/L (3.6-5.0) 09/20/19 05:07 Chloride 102 mmol/L (98-107) 09/20/19 05:07 Carbon Dioxide 24 mmol/L (22-30) 09/20/19 05:07 Anion Gap 8 (5-19) 09/20/19 05:07 BUN 25 mg/dL (7-20) H 09/20/19 05:07 Creatinine 2.30 mg/dL (0.52-1.25) H 09/20/19 05:07 Est GFR ( Amer) 34 (>60) L 09/20/19 05:07 Est GFR (MDRD) Non-Af 28 (>60) L 09/20/19 05:07 Glucose 112 mg/dL (75-110) H 09/20/19 05:07 Calcium 8.5 mg/dL (8.4-10.2) 09/20/19 05:07 Iron 28.4 ug/dL (49-181) L 09/20/19 05:07 TIBC 341 ug/dL (250-450) 09/20/19 05:07 % Saturation 8 % 09/20/19 05:07 Ferritin 20.00 ng/mL (17.9-464.0) 09/20/19 05:07 Total Bilirubin 0.6 mg/dL (0.2-1.3) 09/18/19 18:10 Direct Bilirubin 0.1 mg/dL (0.0-0.4) 09/18/19 18:10 Neonat Total Bilirubin Not Reportable 09/18/19 18:10 Neonat Direct Bilirubin Not Reportable 09/18/19 18:10 Neonat Indirect Bili Not Reportable 09/18/19 18:10 AST 28 U/L (17-59) 09/18/19 18:10 ALT 17 U/L (<50) 09/18/19 18:10 Alkaline Phosphatase 72 U/L (38-126) 09/18/19 18:10 Creatine Kinase 103 U/L (55-170) 09/19/19 13:31 CK-MB (CK-2) 1.37 ng/mL (<4.55) 09/19/19 13:31 Troponin I 0.016 ng/mL 09/19/19 13:31 NT-Pro-B Natriuret Pep 2010 pg/mL (<450) H 09/18/19 18:10 Total Protein 7.9 g/dL (6.3-8.2) 09/18/19 18:10 Albumin 4.3 g/dL (3.5-5.0) 09/18/19 18:10 Vitamin B12 273.0 pg/mL (239-931) 09/20/19 05:07 Folate 5.47 ng/mL (>2.76) 09/20/19 05:07 09/18/19 09/18/19 09/19/19 18:10 19:10 01:06 CK-MB (CK-2) 1.49 1.36 Troponin I 0.016 0.016 0.020 NT-Pro-B Natriuret Pep 2009 H 09/19/19 09/19/19 07:37 13:31 CK-MB (CK-2) 1.37 1.37 Troponin I 0.018 0.016 NT-Pro-B Natriuret Pep Impressions: Chest X-Ray 09/18/19 18:00 IMPRESSION: 1. Chronic mild changes in the lungs. No acute pulmonary consolidation. 2. Additional findings as above. Head CT 09/18/19 18:04 IMPRESSION: 1. No acute intracranial abnormality. EVIDENCE OF ACUTE STROKE: NO. Plan Plan of Treatment: Patient is discharged home in stable condition. He is advised follow-up with his primary care provider within 1 week. Follow-up with his established cloth weaver as scheduled in 2 weeks. Take medications as prescribed. Change positions slowly to prevent orthostatic hypotension. Return to the emergency department as needed for concerning symptoms. Time Spent: Greater than 30 Minutes Stroke Is this a Stroke Patient?: No Acute Heart Failure - Is this a Heart Failure Patient?: No
== END 2019-09-20 14:18 | disposition home or self-care (01) ==
LOC: ER 17:21 → EH 23:40 → INTOOBSV 23:40 → 4W 09-19 02:07
PROVIDERS: ADMIT Family Medicine; ATTEND Registered Nurse
DX: R07.89 Other chest pain (principal); N17.9 Acute kidney failure, unspecified; N18.3 Chronic kidney disease, stage 3 (moderate); R55 Syncope and collapse; I48.91 Unspecified atrial fibrillation; I25.10 Atherosclerotic heart disease of native coronary artery without angina pectoris; E66.01 Morbid (severe) obesity due to excess calories; I27.20 Pulmonary hypertension, unspecified; I08.3 Combined rheumatic disorders of mitral, aortic and tricuspid valves; R41.0 Disorientation, unspecified; I45.2 Bifascicular block; I25.2 Old myocardial infarction; Z87.891 Personal history of nicotine dependence; Z95.5 Presence of coronary angioplasty implant and graft; Z60.2 Problems related to living alone; Z79.899 Other long term (current) drug therapy; Z95.1 Presence of aortocoronary bypass graft
CPT/HCPCS: 93005 ×2; 99285; 36415 ×3; 82553 ×2; 82607; 82550 ×2; 82728; 82746; 83540; 83550; 85025; 85027 ×2; 85045; 80048 ×2; 80053; 84484 ×2; 83880; 93306; 71046; 70450; 93010 ×2; G0378 ×2; J1644; J7030 ×2; J3490 ×2

== ENCOUNTER 2019-10-02 12:17 | Inpatient (IN) | payer OTHER, MEDICARE ==
--- NOTE | 2019-10-02 12:36 | ER Document Report ---
ED Medical Screen (RME) - General Chief Complaint: Swelling Stated Complaint: GROIN SWELLING/URINARY PROBLEM Time Seen by Provider: 10/02/19 12:25 TRAVEL OUTSIDE OF THE [place] IN LAST 30 DAYS: No - HPI Notes: 10/02/19 12:32 78-year-old male with a history of CHF, prediabetes, hypertension, COPD presents to the emergency room for right testicular swelling that started last night with difficulty urinating due to foreskin swelling. states that patient's edema has been getting worse, and she thinks this is what is causing his testicular issue. she saw the medicaid eligibility specialist the other day and they advised that he get seen by his primary care provider because his hemoglobin was 7. She goes to the [place] and is unable to be seen due to the COVID pandemic. Patient is not oxygen dependent, today he is 88% on room air. states he does not use any supplemental oxygen. Patient reports he last urinated an hour ago. I have greeted and performed a rapid initial assessment of this patient. A comprehensive ED assessment and evaluation of the patient, analysis of test results and completion of the medical decision making process will be conducted by additional ED providers. PHYSICAL EXAMINATION: GENERAL: Chronically ill, malnourished and in mild distress. HEAD: Atraumatic, normocephalic. NECK: Normal range of motion CV: s1, s2 regular LUNGS: Diminished breath sounds SKIN: Warm, Dry, normal turgor, no rashes or lesions noted. Pitting pedal edema - Related Data Allergies/Adverse Reactions: No Known Allergies Allergy (Verified 09/18/19 17:56) Past Medical History Psychiatric Medical History: Denies: Hx Depression Physical Exam - Vital signs Vitals: Temp Pulse Resp BP Pulse Ox 97.6 F 94 22 H 124/79 88 L 10/02/19 12:24 10/02/19 12:24 10/02/19 12:24 10/02/19 12:24 10/02/19 12:24 Course - Vital Signs Vital signs: Temp Pulse Resp BP Pulse Ox 97.6 F 94 22 H 124/79 88 L 10/02/19 12:24 10/02/19 12:24 10/02/19 12:24 10/02/19 12:24 10/02/19 12:24
[2019-10-02 12:54] LABS: VENOUS BLOOD BASE EXCESS 1.9 mmol/L; VENOUS BLOOD HCO3 26.9 mmol/L (20-32); VENOUS BLOOD PCO2 44.4 mmHg (35-63); VENOUS BLOOD PH 7.4 (7.30-7.42)
[2019-10-02 12:57] LABS: ABSOLUTE BASOPHILS # (AUTO) 0.1 10^3/uL (0.0-0.2); ABSOLUTE EOSINOPHILS # (AUTO) 0.2 10^3/uL (0.0-0.6); ABSOLUTE LYMPHOCYTES (AUTO) 1.2 10^3/uL (0.5-4.7); ABSOLUTE MONOCYTES (AUTO) 0.8 10^3/uL (0.1-1.4); ABSOLUTE NEUT (AUTO) 7.4 10^3/uL (1.7-8.2); BASOPHILS % (AUTO) 0.8 % (0-2); EOSINOPHILS % (AUTO) 1.6 % (0-6); LYMPHOCYTES % (AUTO) 12.1 % (13-45); MEAN CORPUSCULAR HEMOGLOBIN 24.3 pg (27.0-33.4); MEAN CORPUSCULAR HGB CONC 32.2 g/dL (32.0-36.0); MEAN CORPUSCULAR VOLUME 75 fl (80-97); MONOCYTES % (AUTO) 8.2 % (3-13); PLATELET COUNT 348 10^3/uL (150-450); RED BLOOD COUNT 3.19 10^6/uL (4.35-5.55); RED CELL DISTRIBUTION WIDTH 19.2 % (11.5-14.0); SEGMENTED NEUTROPHILS % (AUTO) 77.3 % (42-78); TOTAL CELLS COUNTED % (AUTO) 100 %; WHITE BLOOD COUNT 9.6 10^3/uL (4.0-10.5)
[2019-10-02 12:59] LABS: HEMOGLOBIN 7.7 g/dL (13.5-17.0)
--- NOTE | 2019-10-02 13:16 | RADIOLOGY REPORT (SQ) ---
EXAM DESCRIPTION: CHEST 2 VIEWS IMAGES COMPLETED DATE/TIME: 10/02/2019 1:08 pm REASON FOR STUDY: 88% on room air, hypoxic COMPARISON: 09/18/2019. EXAM PARAMETERS: NUMBER OF VIEWS: two views TECHNIQUE: Digital Frontal and Lateral radiographic views of the chest acquired. RADIATION DOSE: NA LIMITATIONS: none FINDINGS: LUNGS AND PLEURA: Diffuse bilateral airspace disease, worse on the right side. MEDIASTINUM AND HILAR STRUCTURES: No masses or contour abnormalities. HEART AND VASCULAR STRUCTURES: Heart normal size. No evidence for failure. BONES: No acute findings. HARDWARE: Sternotomy wires and surgical clips. OTHER: No other significant finding. IMPRESSION: DIFFUSE AIRSPACE DISEASE, RIGHT GREATER THAN LEFT, CONSISTENT WITH PNEUMONIA. TECHNICAL DOCUMENTATION: JOB ID: [id number] 2010 [employer]- All Rights Reserved Reading location - IP/workstation name: [email or web address] [email or web address]
--- NOTE | 2019-10-02 13:19 | RADIOLOGY REPORT (SQ) ---
EXAM DESCRIPTION: U/S SCROTUM W/DOPPLER IMAGES COMPLETED DATE/TIME: 10/02/2019 1:09 pm REASON FOR STUDY: Right testicular swelling, swelling penile shaft COMPARISON: None. TECHNIQUE: Static and realtime ramos scale imaging of the scrotum and testes. Selected color Doppler and spectral images recorded to document blood flow. LIMITATIONS: None. FINDINGS: RIGHT: TESTICLE: Normal size. Normal echotexture. Normal blood flow. No mass. EPIDIDYMIS: Normal. HYDROCELE OR VARICOCELE: No. HERNIA OR EXTRA-TESTICULAR MASS: No. OTHER: Diffuse scrotal wall thickening. LEFT: TESTICLE: Normal size. Normal echotexture. Normal blood flow. No mass. EPIDIDYMIS: Normal. HYDROCELE OR VARICOCELE: No. HERNIA OR EXTRA-TESTICULAR MASS: No. OTHER: Diffuse scrotal wall thickening. IMPRESSION: DIFFUSE SCROTAL WALL THICKENING. OTHERWISE UNREMARKABLE SCROTAL ULTRASOUND. NO EVIDENCE OF TESTICULAR MASS OR TORSION. TECHNICAL DOCUMENTATION: JOB ID: [id number] 2010 [employer]- All Rights Reserved Reading location - IP/workstation name: [email or web address]
[2019-10-02] MEDS ORDERED: FUROSEMIDE INJ/PF 20 MG/2 ML SDV IV ONE (13:22)
[2019-10-02] MEDS ORDERED: NITROGLYCERIN 2% OINTMENT 1 GM PACKET TP ONE (13:23)
[2019-10-02 13:24] LABS: TROPONIN I 0.025 ng/mL
[2019-10-02 13:32] LABS: ALKALINE PHOSPHATASE 58 U/L (38-126); ANION GAP 12 (5-19); ASPARTATE AMINO TRANSFERASE 24 U/L (17-59); BILIRUBIN,DIRECT 0.5 mg/dL (0.0-0.4); BILIRUBIN,TOTAL 1.1 mg/dL (0.2-1.3); BLOOD UREA NITROGEN 42 mg/dL (7-20); CALCIUM 8.9 mg/dL (8.4-10.2); CARBON DIOXIDE 28 mmol/L (22-30); CHLORIDE 97 mmol/L (98-107); GLUCOSE 120 mg/dL (75-110); POTASSIUM 3.2 mmol/L (3.6-5.0); TOTAL PROTEIN 7.6 g/dL (6.3-8.2)
--- NOTE | 2019-10-02 13:35 | ER Document Report ---
ED General - General Chief Complaint: Swelling Stated Complaint: GROIN SWELLING/URINARY PROBLEM Time Seen by Provider: 10/02/19 12:25 TRAVEL OUTSIDE OF THE [place] IN LAST 30 DAYS: No - HPI Notes: Chief complaint: Shortness of breath and swelling of genitalia and lower extremities History of present illness: 78-year-old male followed by [facility] discharged from inpatient service here 9 days ago after admission for chest pain with [place] ruled out and acute kidney injury. He had been on diuretics prior to admission and these were discontinued at time of discharge. He now returns with increasing difficulty breathing and massive swelling of the genitalia and lower extremities. He continues the other medications that he was taking at discharge including: Albuterol Sulfate [Proair HFA Inhalation Aerosol 8.5 gm MDI] 2 puff IH Q4HP PRN 09/19/19 Amiodarone HCl [Cordarone 200 mg Tablet] 200 mg PO DAILY 09/19/19 Amlodipine Besylate [Norvasc 10 mg Tablet] 10 mg PO DAILY 09/19/19 Atorvastatin Calcium [Lipitor 40 mg Tablet] 40 mg PO QHS 09/19/19 Budesonide/Formoterol Fumarate [Symbicort HFA 160-4.5 mcg Inhaler 6 gm] 2 puff IH Q12 09/19/19 Levothyroxine Sodium [Synthroid 0.05 mg Tablet] 50 mcg PO QAM 09/19/19 Metoprolol Tartrate [Lopressor 25 mg Tablet] 25 mg PO Q12 09/19/19 [place]-3/Dha/Epa/Fish Oil [Fish Oil 1,000 mg Softgel] 1 each PO BID 09/19/19 Rivaroxaban [Xarelto 15 mg Tablet] 15 mg PO DAILY 09/19/19 Tramadol HCl [Ultram 50 mg Tablet] 50 mg PO TIDP PRN 09/19/19 Patient has a history of atrial fibrillation which is apparently chronic. He had a recent echocardiogram showing an ejection fraction of 60%. Patient denies chest pain. Patient denies syncope. Patient denies fever. Patient denies sputum production. He denies known covert exposure. Patient is a past smoker. He no longer smokes. He does not use any oxygen at home. He denies any known history of thromboembolic disease. - Related Data Allergies/Adverse Reactions: No Known Allergies Allergy (Verified 09/18/19 17:56) Past Medical History - General Information source: Patient, Friend, [facility] Records - Social History Smoking Status: Former Smoker Frequency of alcohol use: Occasional Drug Abuse: None Family History: Reviewed & Not Pertinent - Past Medical History Cardiac Medical History: Reports: Hx Atrial Fibrillation Denies: Hx Pulmonary Embolism Endocrine Medical History: Denies: Hx Diabetes Mellitus Type 1, Hx Diabetes Mellitus Type 2 Renal/ Medical History: Reports: Hx Renal Insufficiency Psychiatric Medical History: Denies: Hx Depression - Immunizations Hx Pneumococcal Vaccination: 02/07/18 Review of Systems - Review of Systems Notes: Constitutional: Negative for fever. HENT: Negative for sore throat. Eyes: Negative for visual changes. Cardiovascular: Negative for chest pain. Respiratory: As per HPI. Gastrointestinal: Negative for abdominal pain, vomiting or diarrhea. Genitourinary: As per HPI. Musculoskeletal: Negative for back pain. Skin: Negative for rash. Neurological: Negative for headaches, weakness or numbness. 10 point ROS negative except as marked above and in HPI. Physical Exam - Vital signs Vitals: Temp Pulse Resp BP Pulse Ox 97.6 F 94 22 H 124/79 88 L 10/02/19 12:24 10/02/19 12:24 10/02/19 12:24 10/02/19 12:24 10/02/19 12:24 - Notes Notes: GENERAL: Elderly man appearing in mild respiratory distress. SKIN: Pale. Scattered ecchymoses both upper extremities. Good turgor. HEAD: Normocephalic atraumatic. EYES: PERRLA. EOMI. Conjunctivae and sclerae clear. EARS: CANALS AND TMS CLEAR. NOSE: CLEAR. MOUTH: Moist mucosa. Good dentition. No stridor or edema. No drooling. NECK: Supple. Mild JVD at 45 degrees elevation. No masses or thyromegaly. No adenopathy. Carotids 2+ without bruits. BACK: Symmetrical without tenderness. CHEST: Respirations unlabored. Breath sounds clear and symmetrical. HEART: Regular rhythm. No murmur gallop or rub. ABDOMEN: Soft obese with probable ascites. Nontender without masses, organomegaly or rebound. Bowel sounds normally active. No bruits. GENITALIA: Uncircumcised male with massive edema penis and scrotum. EXTREMITIES: 3+ bilateral pitting edema. No calf tenderness. Cap refill less than 1.5 seconds. Dorsalis pedis and posterior tibial pulses 3+ and s ymmetrical. NEUROLOGICAL: GCS 15. Alert and oriented x3. Fluent speech. Cranial nerves II through XII intact. Sensorimotor and cerebellar normal. Normal tone. PSYCHIATRIC: Appropriate affect. Course - Re-evaluation Re-evalutation: 10/02/19 14:00 Patient clinically appeared to be in acute decompensated heart failure. Radiol ogist read his x-ray as "pneumonia" although my look at this I think this is clearly vascular congestion. His BNP has approximately doubled to almost 4000 since his recent hospitalization. His troponin is normal. His creatinine is elevated at 2.88. I placed him on supplemental oxygen because of his new oxygen requirement and he is comfortable now on 2 L. I have given 40 mg of Lasix IV. His potassium is also low at 3.2 with serum magnesium level pending. I have given him some oral potassium. His EKG appears to show a junctional rhythm at this time with a ventricular rate of 87. He has been accepted for admission to telemetry by Dr. Cardenas. - Vital Signs Vital signs: Temp Pulse Resp BP Pulse Ox 97.6 F 94 22 H 124/79 88 L 10/02/19 12:24 10/02/19 12:24 10/02/19 12:24 10/02/19 12:24 10/02/19 12:24 - Laboratory Result Diagrams: 10/02/19 12:40 10/02/19 12:40 Laboratory results interpreted by me: 10/02/19 10/02/19 10/02/19 12:40 12:40 12:40 RBC 3.19 L Hgb 7.7 L Hct 24.0 L MCV 75 L MCH 24.3 L RDW 19.2 H Lymph % (Auto) 12.1 L Potassium 3.2 L Chloride 97 L BUN 42 H Creatinine 2.88 H Est GFR ( Amer) 26 L Est GFR (MDRD) Non-Af 21 L Glucose 120 H Magnesium Direct Bilirubin 0.5 H NT-Pro-B Natriuret Pep 3910 H 10/02/19 12:40 RBC Hgb Hct MCV MCH RDW Lymph % (Auto) Potassium Chloride BUN Creatinine Est GFR ( Amer) Est GFR (MDRD) Non-Af Glucose Magnesium 2.8 H Direct Bilirubin NT-Pro-B Natriuret Pep - Diagnostic Test Radiology reviewed: Reports reviewed - Radiologist read the portable chest as "pneumonia" although it appears more consistent with vascular congestion to me. - EKG Interpretation by Me Additional EKG results interpreted by me: 10/02/19 14:03 Twelve-lead EKG from 1318 hrs. is reviewed contemporaneously by me demonstrating a junctional rhythm with a right bundle branch block and left anterior fascicular block. In comparison to prior tracing of 09/19/2019 it appears that junctional rhythm has replaced atrial fibrillation. Indication for current study: Congestive heart failure. Discharge - Discharge Clinical Impression: Acute decompensated heart failure, Chronic renal insufficiency, Anemia Condition: Fair Disposition: ADMITTED INPATIENT Admitting Provider: Theresa (Hospitalist) Unit Admitted: Telemetry
[2019-10-02] MEDS ORDERED: POTASSIUM CHLORIDE 20 MEQ PACKET PO ONE (13:39)
[2019-10-02 14:55] LABS: ARTERIAL BLOOD H2CO3 1.13 mmol/L (1.05-1.35); ARTERIAL BLOOD HCO3 24.9 mmol/L (20-24); ARTERIAL BLOOD PCO2 37.4 mmHg (35-45); ARTERIAL BLOOD PH 7.44 (7.35-7.45); ARTERIAL BLOOD PO2 51.5 mmHg (80-100); ARTERIAL BLOOD TOTAL CO2 26.1 mmol/L (23-27)
[2019-10-02 14:58] LABS: APPEARANCE,URINE CLEAR; BILIRUBIN,URINE NEGATIVE (NEGATIVE); COLOR,URINE YELLOW; GLUCOSE, URINE NEGATIVE (NEGATIVE); KETONES,URINE NEGATIVE (NEGATIVE); LEUKOCYTE ESTERASE,URINE NEGATIVE (NEGATIVE); NITRITE,URINE NEGATIVE (NEGATIVE); PROTEIN,URINE NEGATIVE (NEGATIVE); URINE SPECIFIC GRAVITY 1.014
[2019-10-02 15:05] LABS: ARTERIAL BLOOD FIO2 3L
[2019-10-02] MEDS ORDERED: ACETAMINOPHEN 325 MG TABLET PO PRN (17:06)
[2019-10-02] MEDS ORDERED: IPRATROPIUM/ALBUTEROL 0.5-2.5 MG/3 ML AMPUL NEB PRN (17:06)
[2019-10-02] MEDS ORDERED: ONDANSETRON 4 MG TAB.RAPDIS PO PRN (17:06)
[2019-10-02] MEDS ORDERED: ONDANSETRON HCL INJ/PF 4 MG/2 ML SDV IV PRN (17:06)
--- NOTE | 2019-10-02 17:13 | EKG REPORT ---
SEVERITY:- ABNORMAL ECG - RBBB AND LAFB SINUS RHYTHM : Confirmed by: Jovana Bennett MD 02-Oct-2019 17:11:49
--- NOTE | 2019-10-02 17:50 | ADVANCED CARE ---
- Diagnosis (1) Diastolic CHF, acute on chronic Diagnosis Current: Yes (2) Acute kidney injury superimposed on CKD Diagnosis Current: Yes (3) Skin ulcer of scrotum Diagnosis Current: Yes (4) Chronic atrial fibrillation Diagnosis Current: Yes (5) HTN (hypertension) Diagnosis Current: Yes (6) HLD (hyperlipidemia) Diagnosis Current: Yes (7) T2DM (type 2 diabetes mellitus) Diagnosis Current: Yes (8) S/P CABG (coronary artery bypass graft) Diagnosis Current: Yes (9) COPD (chronic obstructive pulmonary disease) Diagnosis Current: Yes (10) Chronic anticoagulation Diagnosis Current: Yes (11) On home oxygen therapy Diagnosis Current: Yes Attendance: Patient Resuscitation Status: Do Not Resuscitate Discussion: All aspects of code status discussed with patient/POA including cardioversion, chest compressions, and intubation and the patient/POA indicated they wish to be *DNR/DNI. MPOA is designated as: Girlfriend, Joyce Time Spent: Greater than 16 minutes
--- NOTE | 2019-10-02 17:50 | PDOC H&P ---
History of Present Illness Admission Date/PCP: 10/02/19 14:30 History of Present Illness: FIDENCIO BARRIOS is a 78 year old male with past medical history significant for HTN, HLD, T2DM, chronic A. fib on Xarelto, [place] status post CABG with stents, AAA status post stent, COPD requiring home oxygen who presents with a 2-week history of progressive shortness of breath/SIMPSON/bilateral lower extremity edema as well as right sided scrotal boil that ruptured into an ulcer and patient was picking at it. Patient denies any fevers/chills/nausea/vomiting/diarrhea/abdominal pain. He denies any sick contacts and states he is not at risk for coronavirus infection. Patient was supposed to see office machinery or equipment installer after his recent discharge from the hospital for CHF and SALVAT[place] however his appointment is the day after this current admission and he will not be able to make it. Patient was having some intermittent chest pain though his troponin is negative and his EKG is unremarkable compared to previous studies. Chest x-ray showed likely CHF with interstitial edema. BNP is over 4000. Renal function is worse from baseline which appears to be creatinine of approximately 2.5. Patient has a follow-up with a process eng but has not seen them yet. Patient is admitted for acute diastolic CHF exacerbation. Echocardiogram done earlier this month revealed normal systolic function with EF 55 to 60%. They made no mention of diastolic function in the report likely due to chronic atrial arrhythmia. Patient admitted to telemetry with cardiology and nephrology consults. Past Medical History Cardiac Medical History: Reports: Atrial Fibrillation, Myocardial Infarction, Hyperlipidema, Hypertension Denies: Pulmonary Embolism Pulmonary Medical History: Reports: Chronic Obstructive Pulmonary Disease (COPD) Endocrine Medical History: Reports: Diabetes Mellitus Type 2 Denies: Diabetes Mellitus Type 1 Renal/ Medical History: Reports: Chronic Kidney Disease Psychiatric Medical History: Denies: Depression Past Surgical History Past Surgical History: Reports: Coronary Artery Bypass Graft Social History Information Source: Patient, Emergency Med Personnel Lives with: Alone Smoking Status: Former Smoker Frequency of Alcohol Use: None Hx Recreational Drug Use: No Drugs: None Hx Prescription Drug Abuse: No - Advance Directive Resuscitation Status: Do Not Resuscitate Surrogate healthcare decision maker:: Girlfriend Joyce Family History Family History: Reviewed & Not Pertinent, CAD Parental Family History Reviewed: Yes Children Family History Reviewed: Yes Sibling(s) Family History Reviewed.: Yes Medication/Allergy Home Medications: Albuterol Sulfate [Proair HFA Inhalation Aerosol 8.5 gm MDI] 2 puff IH Q4HP PRN 09/19/19 Amiodarone HCl [Cordarone 200 mg Tablet] 200 mg PO DAILY 09/19/19 Amlodipine Besylate [Norvasc 10 mg Tablet] 10 mg PO DAILY 09/19/19 Atorvastatin Calcium [Lipitor 40 mg Tablet] 40 mg PO QHS 09/19/19 Budesonide/Formoterol Fumarate [Symbicort HFA 160-4.5 mcg Inhaler 6 gm] 2 puff IH Q12 09/19/19 Levothyroxine Sodium [Synthroid 0.05 mg Tablet] 50 mcg PO QAM 09/19/19 Metoprolol Tartrate [Lopressor 25 mg Tablet] 25 mg PO Q12 09/19/19 Perry-3/Dha/Epa/Fish Oil [Fish Oil 1,000 mg Softgel] 1 each PO BID 09/19/19 Rivaroxaban [Xarelto 15 mg Tablet] 15 mg PO DAILY 09/19/19 Tramadol HCl [Ultram 50 mg Tablet] 50 mg PO TIDP PRN 09/19/19 Allergies/Adverse Reactions: No Known Allergies Allergy (Verified 09/18/19 17:56) Review of Systems All systems: reviewed and no additional remarkable complaints except as stated - Review of systems per HPI, otherwise negative Physical Exam Vital Signs: Temp Pulse Resp BP Pulse Ox 97.6 F 94 15 119/79 91 L 10/02/19 12:24 10/02/19 12:24 10/02/19 17:01 10/02/19 17:01 10/02/19 17:01 Intake & Output 10/01/19 10/02/19 10/03/19 06:59 06:59 06:59 Weight 120.656 kg General appearance: PRESENT: no acute distress, well-developed, well-nourished Head exam: PRESENT: atraumatic, normocephalic Eye exam: PRESENT: conjunctiva pink. ABSENT: scleral icterus Mouth exam: PRESENT: moist Respiratory exam: PRESENT: rales - Wet lung sounds at bilateral bases. ABSENT: rhonchi, wheezes Cardiovascular exam: PRESENT: irregular rhythm. ABSENT: diastolic murmur, rubs, systolic murmur GI/Abdominal exam: PRESENT: normal bowel sounds, soft. ABSENT: distended, guarding, mass, organolmegaly, rebound, tenderness Rectal exam: PRESENT: deferred Gentrourinary exam: PRESENT: other - Right-sided scrotal ulcer stage II superficial Extremities exam: PRESENT: pedal edema, +2 edema Neurological exam: PRESENT: alert, awake, oriented to person, oriented to place, oriented to time, oriented to situation Psychiatric exam: PRESENT: appropriate affect, normal mood Skin exam: PRESENT: dry, warm Results Laboratory Results: 10/02/19 12:40 10/02/19 12:40 10/02/19 10/02/19 10/02/19 12:40 12:40 12:40 WBC 9.6 RBC 3.19 L Hgb 7.7 L Hct 24.0 L MCV 75 L MCH 24.3 L MCHC 32.2 RDW 19.2 H Plt Count 348 Seg Neutrophils % 77.3 Carbonic Acid HCO3/H2CO3 Ratio ABG pH ABG pCO2 ABG pO2 ABG HCO3 ABG O2 Saturation ABG Base Excess VBG pH 7.40 VBG pCO2 44.4 VBG HCO3 26.9 VBG Base Excess 1.9 FiO2 Sodium 137.0 Potassium 3.2 L Chloride 97 L Carbon Dioxide 28 Anion Gap 12 BUN 42 H Creatinine 2.88 H Est GFR ( Amer) 26 L Glucose 120 H Calcium 8.9 Magnesium Total Bilirubin 1.1 AST 24 Alkaline Phosphatase 58 Total Protein 7.6 Albumin 4.0 Urine Color Urine Appearance Urine pH Ur Specific Ambrose Urine Protein Urine Glucose (UA) Urine Ketones Urine Blood Urine Nitrite Ur Leukocyte Esterase Urine WBC (Auto) Urine RBC (Auto) Blood Type Antibody Screen 10/02/19 10/02/19 10/02/19 12:40 12:40 13:57 WBC RBC Hgb Hct MCV MCH MCHC RDW Plt Count Seg Neutrophils % Carbonic Acid HCO3/H2CO3 Ratio ABG pH ABG pCO2 ABG pO2 ABG HCO3 ABG O2 Saturation ABG Base Excess VBG pH VBG pCO2 VBG HCO3 VBG Base Excess FiO2 Sodium Potassium Chloride Carbon Dioxide Anion Gap BUN Creatinine Est GFR ( Amer) Glucose Calcium Magnesium 2.8 H Total Bilirubin AST Alkaline Phosphatase Total Protein Albumin Urine Color YELLOW Urine Appearance CLEAR Urine pH 5.0 Ur Specific Ambrose 1.014 Urine Protein NEGATIVE Urine Glucose (UA) NEGATIVE Urine Ketones NEGATIVE Urine Blood NEGATIVE Urine Nitrite NEGATIVE Ur Leukocyte Esterase NEGATIVE Urine WBC (Auto) 0 Urine RBC (Auto) 1 Blood Type O POSITIVE Antibody Screen NEGATIVE 10/02/19 14:30 WBC RBC Hgb Hct MCV MCH MCHC RDW Plt Count Seg Neutrophils % Carbonic Acid 1.13 HCO3/H2CO3 Ratio 22:1 ABG pH 7.44 ABG pCO2 37.4 ABG pO2 51.5 L ABG HCO3 24.9 H ABG O2 Saturation 88.0 L ABG Base Excess 1.0 VBG pH VBG pCO2 VBG HCO3 VBG Base Excess FiO2 3L Sodium Potassium Chloride Carbon Dioxide Anion Gap BUN Creatinine Est GFR ( Amer) Glucose Calcium Magnesium Total Bilirubin AST Alkaline Phosphatase Total Protein Albumin Urine Color Urine Appearance Urine pH Ur Specific Ambrose Urine Protein Urine Glucose (UA) Urine Ketones Urine Blood Urine Nitrite Ur Leukocyte Esterase Urine WBC (Auto) Urine RBC (Auto) Blood Type Antibody Screen 10/02/19 12:40 Troponin I 0.025 NT-Pro-B Natriuret Pep 3910 H Impressions: Chest X-Ray 10/02/19 12:30 IMPRESSION: DIFFUSE AIRSPACE DISEASE, RIGHT GREATER THAN LEFT, CONSISTENT WITH PNEUMONIA. Scrotum Ultrasound 10/02/19 12:30 IMPRESSION: DIFFUSE SCROTAL WALL THICKENING. OTHERWISE UNREMARKABLE SCROTAL ULTRASOUND. NO EVIDENCE OF TESTICULAR MASS OR TORSION. Assessment and Plan - Diagnosis (1) Diastolic CHF, acute on chronic Is this a current diagnosis for this admission?: Yes Plan: Recent echocardiogram done showed normal systolic function and diastolic function was not assessed due to atrial arrhythmia, no significant valvular p athology Cardiology consulted IV Lasix 40 mg twice daily Clear evidence of volume overload on admission with pulmonary interstitial edema and massive BLE edema (2) Acute kidney injury superimposed on CKD Is this a current diagnosis for this admission?: Yes Plan: Baseline creatinine seems to be approximately 2.4-2.5 though there is a large gap in our records where he does not have any lab tests resulted Nephrology consulted, follows with nephrology outpatient Likely cardiorenal etiology No proteinuria on UA, no UTI (3) Skin ulcer of scrotum Is this a current diagnosis for this admission?: Yes Plan: Ruptured boil per patient, superficial stage II ulcer present on admission, not a pressure ulcer IV clindamycin for 7 days Local wound care (4) Chronic atrial fibrillation Is this a current diagnosis for this admission?: Yes Plan: Continue Xarelto Rate control Home medications continued (5) HTN (hypertension) Is this a current diagnosis for this admission?: Yes Plan: Selectively continue home medications (6) HLD (hyperlipidemia) Is this a current diagnosis for this admission?: Yes Plan: Statin, stable (7) T2DM (type 2 diabetes mellitus) Qualifiers: Diabetes mellitus terminal manager insulin use: without terminal manager use Diabetes mellitus complication status: with kidney complications Diabetes mellitus complication detail: with chronic kidney disease Chronic kidney disease stage: stage 3 (moderate) Qualified Code(s): E11.22 - Type 2 diabetes mellitus with diabetic chronic kidney disease; N18.3 - Chronic kidney disease, stage 3 (moderate) Is this a current diagnosis for this admission?: Yes Plan: Accu-Cheks, low-dose correctional insulin Hemoglobin A1c (8) S/P CABG (coronary artery bypass graft) Is this a current diagnosis for this admission?: Yes (9) COPD (chronic obstructive pulmonary disease) Is this a current diagnosis for this admission?: Yes (10) Chronic anticoagulation Is this a current diagnosis for this admission?: Yes (11) On home oxygen therapy Is this a current diagnosis for this admission?: Yes Plan: Patient is unsure how much oxygen he needs but states he qualified for it however his oxygen was never delivered to his home - Time Time Spent with patient: 35 or more minutes Medications reviewed and adjusted accordingly: Yes Anticipated Discharge Disposition: Half-Way Facility Anticipated Discharge Timeframe: within 72 hours - Inpatient Certification Based on my medical assessment, after consideration of the patient's comorbidities, presenting symptoms, or acuity I expect that the services needed warrant INPATIENT care.: Yes I certify that my determination is in accordance with my understanding of Medicare's requirements for reasonable and necessary INPATIENT services [42 CFR 412.3e].: Yes Medical Necessity: Significant Comorbidiites Make Outpatient Treatment Too Risky, Need Close Monitoring Due to Risk of Patient Decompensation, Risk of Complication if Not Cared For in Hospital, Risk of Diagnosis Which Will Require Inpatient Eval/Care/Monitoring
[2019-10-02] MEDS ORDERED: (PENDING PHARMACY ID) (Omega-3/Dha/Epa/Fish Oil [Fish Oil 1,000 Mg Softgel] 1 EACH) PO SCH (18:00)
[2019-10-02] MEDS ORDERED: DOCUSATE SODIUM 100 MG CAPSULE PO SCH (18:00)
[2019-10-02] MEDS: TRAMADOL HCL 50 MG TABLET PO PRN (18:43)
[2019-10-02] MEDS: CLINDAMYCIN 600 MG/D5W RTU 600 MG/50 ML RTUPB IV SCH (19:11)
[2019-10-02] MEDS: OMEGA-3 ACID ETHYL ESTERS 1 GM CAPSULE PO SCH (19:38)
[2019-10-02] MEDS ORDERED: DEXTROSE 40% GEL 15 GM TUBE PO PRN (20:30)
[2019-10-02] MEDS ORDERED: DEXTROSE 40% GEL 15 GM TUBE X 2 PO PRN (20:30)
[2019-10-02] MEDS ORDERED: DEXTROSE 50%-WATER SYRINGE 12.5 GM/25 ML DOSE IV PRN (20:30)
[2019-10-02] MEDS ORDERED: DEXTROSE 50%-WATER SYRINGE 25 GM/50 ML DOSE IV PRN (20:30)
[2019-10-02] MEDS ORDERED: GLUCAGON,HUMAN RECOMB 1 MG INJ IM PRN (20:30)
[2019-10-02] MEDS: INSULIN LISPRO 100 UNIT/ML 3 ML VIAL SUBCUT SCH (21:52)
[2019-10-02] MEDS ORDERED: ALBUTEROL SULFATE HFA (90 MCG/PUFF) 200 PUFF/8.5 GM MDI IH PRN (22:15)
[2019-10-02] MEDS: FUROSEMIDE INJ/PF 40 MG/4 ML SDV IV SCH (22:26)
[2019-10-02] MEDS: METOPROLOL TARTRATE 25 MG TABLET PO SCH (22:28)
[2019-10-02] MEDS: ATORVASTATIN CALCIUM 40 MG TABLET PO SCH (22:28)
[2019-10-03] MEDS: CLINDAMYCIN 600 MG/D5W RTU 600 MG/50 ML RTUPB IV SCH ×3 (01:46→17:54)
[2019-10-03 04:27] LABS: ABSOLUTE BASOPHILS # (AUTO) 0.1 10^3/uL (0.0-0.2); ABSOLUTE EOSINOPHILS # (AUTO) 0.1 10^3/uL (0.0-0.6); ABSOLUTE LYMPHOCYTES (AUTO) 1.2 10^3/uL (0.5-4.7); ABSOLUTE MONOCYTES (AUTO) 0.8 10^3/uL (0.1-1.4); ABSOLUTE NEUT (AUTO) 7.1 10^3/uL (1.7-8.2); BASOPHILS % (AUTO) 0.6 % (0-2); EOSINOPHILS % (AUTO) 1.5 % (0-6); HEMATOCRIT 21.6 % (37.9-51.0); LYMPHOCYTES % (AUTO) 13.3 % (13-45); MEAN CORPUSCULAR HGB CONC 32.1 g/dL (32.0-36.0); MEAN CORPUSCULAR VOLUME 75 fl (80-97); MONOCYTES % (AUTO) 8.9 % (3-13); PLATELET COUNT 305 10^3/uL (150-450); SEGMENTED NEUTROPHILS % (AUTO) 75.7 % (42-78); TOTAL CELLS COUNTED % (AUTO) 100 %; WHITE BLOOD COUNT 9.4 10^3/uL (4.0-10.5)
[2019-10-03 04:43] LABS: ANION GAP 9 (5-19); BLOOD UREA NITROGEN 46 mg/dL (7-20); CARBON DIOXIDE 24 mmol/L (22-30); CHLORIDE 101 mmol/L (98-107); GLUCOSE 105 mg/dL (75-110); PHOSPHORUS 5.3 mg/dL (2.5-4.5); POTASSIUM 3.8 mmol/L (3.6-5.0)
[2019-10-03] MEDS: LEVOTHYROXINE SODIUM 0.05 MG TABLET PO SCH (06:20)
[2019-10-03] MEDS: TRAMADOL HCL 50 MG TABLET PO PRN (06:22)
[2019-10-03] MEDS: METOPROLOL TARTRATE 25 MG TABLET PO SCH ×2 (10:22→22:45)
[2019-10-03] MEDS: AMIODARONE HCL 200 MG TABLET PO SCH (10:22)
[2019-10-03] MEDS: RIVAROXABAN 15 MG TABLET PO SCH (10:22)
[2019-10-03] MEDS: FUROSEMIDE INJ/PF 40 MG/4 ML SDV IV SCH ×2 (10:23→22:46)
[2019-10-03] MEDS: OMEGA-3 ACID ETHYL ESTERS 1 GM CAPSULE PO SCH ×2 (10:23→17:54)
[2019-10-03] MEDS: FLUTICASONE/VILANTEROL 200-25 MCG/DOSE IH SCH (10:31)
--- NOTE | 2019-10-03 10:49 | PDOC CONSULTATION ---
Consultation Consult Date: 10/03/19 Attending physician:: JOAN MURPHY Provider Consulted: QUINCY BOTELLO Consult reason:: HF History of Present Illness Admission Date/PCP: 10/02/19 14:30 History of Present Illness: FIDENCIO BARRIOS is a 78 year old male with history of hypertension, DM-II, permanent atrial fibrillation anticoagulated with xarelto, CAD s/p CABG on 01/07/1999 and PCI to 2 vessels in 2002 (the patient does not remember any details of those cardiovascular interventions), AAA s/p repair in 2005 or 2006, HFpEF and severe COPD on home O2 who is consulted to our service for further evaluation and treatment of decompensated HF. The patient was admitted to this facility 09/18/19 through 09/20/19 for CP, SALVATORE and syncope. At that time he did have a degree of fluid overload. He was ruled out for ACS and discharged home to follow up with his cardiology at [facility]. He apparently had a stress test with his technical services rep in [place] however we don't have any of those records. His TTE during that admission demonstrated an EF if 55-60% among other findings. Unfortunately the patient developed progressive shortness of breath, dyspnea on exertion, significant bilateral lower extremity edema as well edema in his genitalia reason why he was admitted. Upon further questioning, the patient states that he kept taking his Lasix as prescribed prior to this hospitalization however was not following a low-sodium diet. This morning he feels much better. His telemetry shows slow atrial fibrillation without complex ventricular dysrhythmias. His fluid balance is -780 mL. His CBC continues to show worsening anemia with his most current hemoglobin at 7.0. He did admit to have black tarry stools approximately 1 month ago however denied recurrence of that issue as well as bright red blood per rectum and blood in the urine. Physical exam on 10/03/19: GENERAL: The patient is sitting up at the side of the bed. Pleasant and conversational. Appears pale. Oriented x3 with normal mood. Not in acute distress. Well groomed and well developed. HEENT: Normocephalic, atraumatic. Pupils equal. Sclerae anicteric. Oropharynx moist. NECK: No JVD. No carotid bruits. LUNGS: Clear to auscultation bilaterally. Normal respiratory effort without the use of accessory muscles or intercostal retractions. CARDIOVASCULAR: Irregularly irregular rate and rhythm, no murmurs, rubs, or gallops. PMI not displaced. ABDOMEN: Obese. No masses or tenderness to palpation. No bruit. No splenomegaly or hepatomegaly. No abdominal aorta bruit noted. EXTREMITIES: 2+ pitting edema bilaterally, no cyanosis, no clubbing. MUSCULOSKELETAL: No chest tenderness to palpation. NEUROLOGIC: Nonfocal. No gross sensory or motor deficits bilateral upper or lower extremities. Cardiac studies: Echo on 09/19/19: -EF 55-60% -Mild MR, trace AI, trace TR. -Minimal pericardial effusion. -Mild pHTN. Past Medical History Cardiac Medical History: Reports: Atrial Fibrillation, Myocardial Infarction, Hyperlipidema, Hypertension Denies: Pulmonary Embolism Pulmonary Medical History: Reports: Chronic Obstructive Pulmonary Disease (COPD) Endocrine Medical History: Reports: Diabetes Mellitus Type 2 Denies: Diabetes Mellitus Type 1 Renal/ Medical History: Reports: Chronic Kidney Disease Psychiatric Medical History: Denies: Depression Past Surgical History Past Surgical History: Reports: Coronary Artery Bypass Graft Social History Lives with: Alone Smoking Status: Former Smoker Frequency of Alcohol Use: None Hx Recreational Drug Use: No Drugs: None Hx Prescription Drug Abuse: No - Advance Directive Resuscitation Status: Do Not Intubate Family History Family History: Reviewed & Not Pertinent, CAD Parental Family History Reviewed: Yes Children Family History Reviewed: Yes Sibling(s) Family History Reviewed.: Yes Medication/Allergy Home Medications: Albuterol Sulfate [Proair HFA Inhalation Aerosol 8.5 gm MDI] 2 puff IH Q4HP PRN 09/19/19 Amiodarone HCl [Cordarone 200 mg Tablet] 200 mg PO DAILY 09/19/19 Amlodipine Besylate [Norvasc 10 mg Tablet] 10 mg PO DAILY 09/19/19 Atorvastatin Calcium [Lipitor 40 mg Tablet] 40 mg PO QHS 09/19/19 Budesonide/Formoterol Fumarate [Symbicort HFA 160-4.5 mcg Inhaler 6 gm] 2 puff IH Q12 09/19/19 Levothyroxine Sodium [Synthroid 0.05 mg Tablet] 50 mcg PO QAM 09/19/19 Metoprolol Tartrate [Lopressor 25 mg Tablet] 25 mg PO Q12 09/19/19 [place]-3/Dha/Epa/Fish Oil [Fish Oil 1,000 mg Softgel] 1 each PO BID 09/19/19 Rivaroxaban [Xarelto 15 mg Tablet] 15 mg PO DAILY 09/19/19 Tramadol HCl [Ultram 50 mg Tablet] 50 mg PO TIDP PRN 09/19/19 Allergies/Adverse Reactions: No Known Allergies Allergy (Verified 09/18/19 17:56) Physical Exam Vital Signs: Temp Pulse Resp BP Pulse Ox 98.0 F 90 18 108/57 L 92 10/03/19 03:42 10/03/19 03:42 10/03/19 03:42 10/03/19 03:42 10/03/19 03:42 Intake & Output 10/01/19 10/02/19 10/03/19 06:59 06:59 06:59 Intake Total 400 Output Total 600 Balance -200 Weight 107.5 kg Results Laboratory Results: 10/03/19 03:45 10/02/19 10/02/19 10/02/19 12:40 12:40 12:40 WBC 9.6 RBC 3.19 L Hgb 7.7 L Hct 24.0 L MCV 75 L MCH 24.3 L MCHC 32.2 RDW 19.2 H Plt Count 348 Seg Neutrophils % 77.3 Carbonic Acid HCO3/H2CO3 Ratio ABG pH ABG pCO2 ABG pO2 ABG HCO3 ABG O2 Saturation ABG Base Excess VBG pH 7.40 VBG pCO2 44.4 VBG HCO3 26.9 VBG Base Excess 1.9 FiO2 Sodium 137.0 Potassium 3.2 L Chloride 97 L Carbon Dioxide 28 Anion Gap 12 BUN 42 H Creatinine 2.88 H Est GFR ( Amer) 26 L Glucose 120 H Calcium 8.9 Magnesium Total Bilirubin 1.1 AST 24 Alkaline Phosphatase 58 Total Protein 7.6 Albumin 4.0 Urine Color Urine Appearance Urine pH Ur Specific Era Urine Protein Urine Glucose (UA) Urine Ketones Urine Blood Urine Nitrite Ur Leukocyte Esterase Urine WBC (Auto) Urine RBC (Auto) Blood Type Antibody Screen 10/02/19 10/02/19 10/02/19 12:40 12:40 13:57 WBC RBC Hgb Hct MCV MCH MCHC RDW Plt Count Seg Neutrophils % Carbonic Acid HCO3/H2CO3 Ratio ABG pH ABG pCO2 ABG pO2 ABG HCO3 ABG O2 Saturation ABG Base Excess VBG pH VBG pCO2 VBG HCO3 VBG Base Excess FiO2 Sodium Potassium Chloride Carbon Dioxide Anion Gap BUN Creatinine Est GFR ( Amer) Glucose Calcium Magnesium 2.8 H Total Bilirubin AST Alkaline Phosphatase Total Protein Albumin Urine Color YELLOW Urine Appearance CLEAR Urine pH 5.0 Ur Specific Era 1.014 Urine Protein NEGATIVE Urine Glucose (UA) NEGATIVE Urine Ketones NEGATIVE Urine Blood NEGATIVE Urine Nitrite NEGATIVE Ur Leukocyte Esterase NEGATIVE Urine WBC (Auto) 0 Urine RBC (Auto) 1 Blood Type O POSITIVE Antibody Screen NEGATIVE 10/02/19 10/03/19 14:30 03:45 WBC 9.4 RBC 2.90 L Hgb 7.0 L Hct 21.6 L MCV 75 L MCH 24.0 L MCHC 32.1 RDW 19.0 H Plt Count 305 Seg Neutrophils % 75.7 Carbonic Acid 1.13 HCO3/H2CO3 Ratio 22:1 ABG pH 7.44 ABG pCO2 37.4 ABG pO2 51.5 L ABG HCO3 24.9 H ABG O2 Saturation 88.0 L ABG Base Excess 1.0 VBG pH VBG pCO2 VBG HCO3 VBG Base Excess FiO2 3L Sodium Potassium Chloride Carbon Dioxide Anion Gap BUN Creatinine Est GFR ( Amer) Glucose Calcium Magnesium Total Bilirubin AST Alkaline Phosphatase Total Protein Albumin Urine Color Urine Appearance Urine pH Ur Specific Era Urine Protein Urine Glucose (UA) Urine Ketones Urine Blood Urine Nitrite Ur Leukocyte Esterase Urine WBC (Auto) Urine RBC (Auto) Blood Type Antibody Screen 10/02/19 10/02/19 10/03/19 12:40 18:50 00:33 Troponin I 0.025 0.027 0.025 NT-Pro-B Natriuret Pep 3910 H Impressions: Chest X-Ray 10/02/19 12:30 IMPRESSION: DIFFUSE AIRSPACE DISEASE, RIGHT GREATER THAN LEFT, CONSISTENT WITH PNEUMONIA. Scrotum Ultrasound 10/02/19 12:30 IMPRESSION: DIFFUSE SCROTAL WALL THICKENING. OTHERWISE UNREMARKABLE SCROTAL ULTRASOUND. NO EVIDENCE OF TESTICULAR MASS OR TORSION. 10/03/19 03:45 10/03/19 03:45 MCV 75 fl (80-97) L 10/03/19 03:45 MCH 24.0 pg (27.0-33.4) L 10/03/19 03:45 MCHC 32.1 g/dL (32.0-36.0) 10/03/19 03:45 RDW 19.0 % (11.5-14.0) H 10/03/19 03:45 Seg Neutrophils % 75.7 % (42-78) 10/03/19 03:45 Carbonic Acid 1.13 mmol/L (1.05-1.35) 10/02/19 14:30 HCO3/H2CO3 Ratio 22:1 10/02/19 14:30 ABG pH 7.44 (7.35-7.45) 10/02/19 14:30 ABG pCO2 37.4 mmHg (35-45) 10/02/19 14:30 ABG pO2 51.5 mmHg (80-100) L 10/02/19 14:30 ABG HCO3 24.9 mmol/L (20-24) H 10/02/19 14:30 ABG O2 Saturation 88.0 % (94-98) L 10/02/19 14:30 ABG Base Excess 1.0 mmol/L 10/02/19 14:30 VBG pH 7.40 (7.30-7.42) 10/02/19 12:40 VBG pCO2 44.4 mmHg (35-63) 10/02/19 12:40 VBG HCO3 26.9 mmol/L (20-32) 10/02/19 12:40 VBG Base Excess 1.9 mmol/L 10/02/19 12:40 FiO2 3L 10/02/19 14:30 Chloride 101 mmol/L (98-107) 10/03/19 03:45 Carbon Dioxide 24 mmol/L (22-30) 10/03/19 03:45 Anion Gap 9 (5-19) 10/03/19 03:45 Est GFR ( Amer) 28 (>60) L 10/03/19 03:45 Glucose 105 mg/dL (75-110) 10/03/19 03:45 Calcium 8.0 mg/dL (8.4-10.2) L 10/03/19 03:45 Phosphorus 5.3 mg/dL (2.5-4.5) H 10/03/19 03:45 Magnesium 2.5 mg/dL (1.6-2.3) H 10/03/19 03:45 Total Bilirubin 1.1 mg/dL (0.2-1.3) 10/02/19 12:40 AST 24 U/L (17-59) 10/02/19 12:40 Alkaline Phosphatase 58 U/L (38-126) 10/02/19 12:40 Total Protein 7.6 g/dL (6.3-8.2) 10/02/19 12:40 Albumin 4.0 g/dL (3.5-5.0) 10/02/19 12:40 Urine Color YELLOW 10/02/19 13:57 Urine Appearance CLEAR 10/02/19 13:57 Urine pH 5.0 (5.0-9.0) 10/02/19 13:57 Ur Specific Era 1.014 10/02/19 13:57 Urine Protein NEGATIVE mg/dL (NEGATIVE) 10/02/19 13:57 Urine Glucose (UA) NEGATIVE mg/dL (NEGATIVE) 10/02/19 13:57 Urine Ketones NEGATIVE mg/dL (NEGATIVE) 10/02/19 13:57 Urine Blood NEGATIVE (NEGATIVE) 10/02/19 13:57 Urine Nitrite NEGATIVE (NEGATIVE) 10/02/19 13:57 Ur Leukocyte Esterase NEGATIVE (NEGATIVE) 10/02/19 13:57 Urine WBC (Auto) 0 /HPF 10/02/19 13:57 Urine RBC (Auto) 1 /HPF 10/02/19 13:57 Blood Type O POSITIVE 10/02/19 12:40 Antibody Screen NEGATIVE 10/02/19 12:40 10/02/19 10/02/19 10/03/19 12:40 18:50 00:33 Troponin I 0.025 0.027 0.025 NT-Pro-B Natriuret Pep 3910 H Current Medication List Generic Name Dose Route Start Last Admin Trade Name Freq PRN Reason Stop Dose Admin Acetaminophen 650 mg 10/02/19 17:06 Tylenol 325 Mg Tablet PO 11/01/19 17:05 Q4HP PRN pain or fever Albuterol 2 puff 10/02/19 22:15 Proair Hfa Inhalation Aerosol 8.5 Gm Mdi IH 11/01/19 22:14 Q4HP PRN SOB Albuterol/Ipratropium 3 ml 10/02/19 17:06 Duoneb 3 Ml Ampul NEB 11/01/19 17:05 RTQ2HP PRN SHORTNESS OF BREATH Amiodarone HCl 200 mg 10/03/19 10:00 Cordarone 200 Mg Tablet PO 11/02/19 09:59 DAILY ED Atorvastatin Calcium 40 mg 10/02/19 22:00 10/02/19 22:28 Lipitor 40 Mg Tablet PO 11/01/19 21:59 40 mg QHS ED Administration Dextrose 12.5 gm 10/02/19 20:30 Dextrose Inj 50% Syringe (25 Gm/50 Ml) IV 11/01/19 20:29 PRN PRN FOR BG 50-69 IN ALERT PATIENT Protocol Dextrose 25 gm 10/02/19 20:30 Dextrose Inj 50% Syringe (25 Gm/50 Ml) IV 11/01/19 20:29 PRN PRN PER PROTOCOL Protocol Docusate Sodium 100 mg 10/02/19 18:00 10/02/19 18:44 Colace 100 Mg Capsule PO 11/01/19 17:59 100 mg Q2D ED Administration Fluticasone/Vilanterol 1 inh 10/03/19 10:00 Breo 200-25 Mcg Ellipta 14 Dose/Dpi IH 11/02/19 09:59 DAILY ED Furosemide 40 mg 10/02/19 22:00 10/02/19 22:26 Lasix Inj/Pf 40 Mg/4 Ml Sdv IV 11/01/19 21:59 40 mg Q12 ED Administration Glucagon 1 mg 10/02/19 20:30 Glucagen Inj 1 Mg Vial IM 11/01/19 20:29 PRN PRN EVALUATE FOR BG < 70 Protocol Glucose 15 gm 10/02/19 20:30 Glutose 40% Gel 15 Gm Tube PO 11/01/19 20:29 PRN PRN FOR BG 50-69 IN ALERT PATIENT Protocol Glucose 30 gm 10/02/19 20:30 Glutose 40% Gel 15 Gm Tube PO 11/01/19 20:29 PRN PRN FOR BG < 50 IN ALERT PATIENT Protocol Clindamycin Phosphate/Dextrose 600 mg in 50 mls @ 50 mls/hr 10/02/19 18:00 10/03/19 02:46 Cleocin Rtu 600 Mg/D5w 50 Ml Premix IV 10/09/19 17:59 Infused Q8A ED Infusion Insulin Human Lispro 0 - 12 unit 10/02/19 22:00 10/02/19 21:52 Humalog Insulin 100 Unit/1 Ml 3 Ml Vial SUBCUT 11/01/19 21:59 Not Given ACHS ED Protocol Levothyroxine Sodium 0.05 mg 10/03/19 06:00 Synthroid 0.05 Mg Tablet PO 11/02/19 05:59 Q6AM ED Metoprolol Tartrate 25 mg 10/02/19 22:00 10/02/19 22:28 Lopressor 25 Mg Tablet PO 11/01/19 21:59 25 mg Q12 ED Administration Vbtuw-4-Podu Ethyl Esters 1 gm 10/02/19 18:45 10/02/19 19:38 Lovaza 1 Gm Capsule PO 11/01/19 18:44 1 gm BID ED Administration Ondansetron HCl 4 mg 10/02/19 17:06 Zofran Odt 4 Mg Tablet PO 11/01/19 17:05 Q4HP PRN FOR NAUSEA/VOMITING Ondansetron HCl 4 mg 10/02/19 17:06 Zofran Inj/Pf 4 Mg/2 Ml Sdv IV 11/01/19 17:05 Q4HP PRN FOR NAUSEA/VOMITING Rivaroxaban 15 mg 10/03/19 10:00 Xarelto 15 Mg Tablet PO 11/02/19 09:59 DAILY ED Tramadol HCl 50 mg 10/02/19 17:10 10/02/19 18:43 Ultram 50 Mg Tablet PO 10/09/19 17:09 50 mg TIDP PRN Administration FOR PAIN Discontinued Medications Generic Name Dose Route Start Last Admin Trade Name Freq PRN Reason Stop Dose Admin Furosemide 40 mg 10/02/19 13:22 10/02/19 13:47 Lasix Inj/Pf 20 Mg/2 Ml Sdv IV 10/02/19 13:23 40 mg NOW ONE Administration Nitroglycerin 1 gm 10/02/19 13:23 10/02/19 13:45 Nitrol 2% Ointment 1gm Packet TP 10/02/19 13:24 1 gm NOW ONE Administration Potassium Chloride 20 meq 10/02/19 13:39 10/02/19 13:48 Potassium Chloride 20 Meq Packet PO 10/02/19 13:40 20 meq NOW ONE Administration Assessment & Plan - Diagnosis (1) Diastolic CHF, acute on chronic Is this a current diagnosis for this admission?: Yes Plan: The patient is clearly fluid overloaded which is likely secondary to dietary indiscretions. We discussed the importance of keeping low-sodium diet to below 1500 mg daily and how to achieve it. He feels much improved since admission with an improved creatinine and a negative fluid balance of 780 cc. Unfortunately his anemia continues to worsen. Recommendations: -Keep hemoglobin =/>8.0. -Continue diuresis with Lasix IV. -Consider adding afterload reduction as tolerated by blood pressure. -Restrict fluid intake to 1500 cc daily. -Low sodium diet, less than 1500 mg daily. -Strict intake and output. -Daily weights. -Get cardiovascular records from [facility]. (2) Anemia Qualifiers: Anemia type: unspecified type Qualified Code(s): D64.9 - Anemia, unspecified Is this a current diagnosis for this admission?: Yes Plan: His hemoglobin continues to decrease and is currently at 7.0. He admitted this morning to having at least one episode of melena approximately 1 year ago. Recommendations: -Anemia work up per hospitalist service. (3) Acute renal failure superimposed on chronic kidney disease Qualifiers: Acute renal failure type: unspecified Chronic kidney disease stage: stage 3 (moderate) Qualified Code(s): N17.9 - Acute kidney failure, unspecified; N18.3 - Chronic kidney disease, stage 3 (moderate) Is this a current diagnosis for this admission?: Yes Plan: His renal function is slightly improved this morning. Recommendations: -Nephrology consult as requested by hospitalist service. -Further management per nephrology and hospitalist teams. (4) Chronic atrial fibrillation Is this a current diagnosis for this admission?: Yes Plan: He is rate controlled and anticoagulated with Xarelto. Unfortunately his hemoglobin continues to drop and the patient admitted this morning to me that 1 month ago he had at least one episode of melena. Recommendations: -Temporarily stop Xarelto until GI work-up completed. (5) HTN (hypertension) Is this a current diagnosis for this admission?: Yes Plan: His BP is at goal. Will continue to monitor.
[2019-10-03] MEDS: INSULIN LISPRO 100 UNIT/ML 3 ML VIAL SUBCUT SCH ×4 (10:52→22:45)
[2019-10-03] MEDS ORDERED: NORMAL SALINE 250 ML IV PRN ×2 (17:10)
[2019-10-03] MEDS ORDERED: FUROSEMIDE INJ/PF 20 MG/2 ML SDV IV PRN (17:16)
[2019-10-03] MEDS ORDERED: SENNOSIDES/DOCUSATE 8.6-50 MG 1 EACH TABLET PO PRN (17:18)
--- NOTE | 2019-10-03 17:20 | PDOC PROGRESS REPORT ---
Subjective Progress Note for:: 10/03/19 Subjective:: Sitting on the edge of the bed. Does not appear to be in significant distress. Breathing seems comfortable. He remains on oxygen. Reason For Visit: ACUTE DIASTOLIC CHF EXACERBATION,ACUTE ON CHRONIC Physical Exam Vital Signs: Temp Pulse Resp BP Pulse Ox 98.0 F 62 18 106/56 L 91 L 10/03/19 15:34 10/03/19 15:34 10/03/19 15:34 10/03/19 15:34 10/03/19 15:34 Intake & Output 10/02/19 10/03/19 10/04/19 06:59 06:59 06:59 Intake Total 520 50 Output Total 1300 Balance -780 50 Weight 107.5 kg General appearance: PRESENT: no acute distress, cooperative, well-developed Head exam: PRESENT: atraumatic, normocephalic Eye exam: PRESENT: conjunctiva pale. ABSENT: scleral icterus Ear exam: PRESENT: normal external ear exam. ABSENT: bleeding, drainage Respiratory exam: PRESENT: clear to auscultation varsha, symmetrical, unlabored. ABSENT: rales, rhonchi, tachypnea, wheezes Cardiovascular exam: PRESENT: RRR, +S1, +S2. ABSENT: bradycardia, diastolic murmur, irregular rhythm, systolic murmur, tachycardia GI/Abdominal exam: PRESENT: normal bowel sounds, soft. ABSENT: tenderness Rectal exam: PRESENT: deferred Gentrourinary exam: ABSENT: indwelling catheter Extremities exam: PRESENT: +2 edema Musculoskeletal exam: PRESENT: ambulatory, normal inspection. ABSENT: deformity, dislocation Neurological exam: PRESENT: alert, awake, oriented to person, oriented to place, oriented to time, oriented to situation, CN II-XII grossly intact. ABSENT: altered Psychiatric exam: PRESENT: flat affect. ABSENT: agitated, anxious Results Laboratory Results: 10/03/19 03:45 10/03/19 03:45 10/03/19 10/03/19 03:45 03:45 WBC 9.4 RBC 2.90 L Hgb 7.0 L Hct 21.6 L MCV 75 L MCH 24.0 L MCHC 32.1 RDW 19.0 H Plt Count 305 Seg Neutrophils % 75.7 Sodium 134.4 L Potassium 3.8 Chloride 101 Carbon Dioxide 24 Anion Gap 9 BUN 46 H Creatinine 2.69 H Est GFR ( Amer) 28 L Glucose 105 Calcium 8.0 L Phosphorus 5.3 H Magnesium 2.5 H 10/02/19 10/02/19 10/03/19 12:40 18:50 00:33 Troponin I 0.025 0.027 0.025 NT-Pro-B Natriuret Pep 3910 H Impressions: Chest X-Ray 10/02/19 12:30 IMPRESSION: DIFFUSE AIRSPACE DISEASE, RIGHT GREATER THAN LEFT, CONSISTENT WITH PNEUMONIA. Scrotum Ultrasound 10/02/19 12:30 IMPRESSION: DIFFUSE SCROTAL WALL THICKENING. OTHERWISE UNREMARKABLE SCROTAL ULTRASOUND. NO EVIDENCE OF TESTICULAR MASS OR TORSION. Assessment and Plan - Diagnosis (1) Diastolic CHF, acute on chronic Is this a current diagnosis for this admission?: Yes Plan: The patient is currently on IV Lasix. He is also on a fluid restriction and cardiac diet. He still has lower extremity edema. He has a positive fluid balance but I do not believe there have been strict I's and O's. He is on amiodarone (atrial fibrillation), metoprolol and furosemide. Continue current regimen. Monitor electrolytes with diuresis. (2) Acute kidney injury superimposed on CKD Is this a current diagnosis for this admission?: Yes Plan: Nephrology has been consulted. Could be due to the acute exacerbation of heart failure. We will continue to monitor renal function as well as intake and output. (3) Skin ulcer of scrotum Is this a current diagnosis for this admission?: Yes Plan: Continue clindamycin. Blood cultures have been negative. (4) Longstanding persistent atrial fibrillation Is this a current diagnosis for this admission?: Yes Plan: Continue amiodarone and metoprolol. Continue Xarelto for anticoagulation. (5) HTN (hypertension) Qualifiers: Hypertension type: essential hypertension Qualified Code(s): I10 - Essential (primary) hypertension Is this a current diagnosis for this admission?: Yes Plan: Will monitor blood pressures with aggressive diuresis. Reasonable control at this time. His amlodipine has been on hold. (6) Hyperglycemia due to diabetes mellitus Is this a current diagnosis for this admission?: Yes Plan: The patient's hemoglobin was only 5.3. He does report a history of diabetes but his Accu-Cheks are well controlled. Continue cardiac and diabetic diet. (7) Chronic anticoagulation Is this a current diagnosis for this admission?: Yes Plan: Continue Xarelto (8) HLD (hyperlipidemia) Qualifiers: Hyperlipidemia type: unspecified Qualified Code(s): E78.5 - Hyperlipidemia, unspecified Is this a current diagnosis for this admission?: Yes Plan: Continue statin therapy. (9) COPD (chronic obstructive pulmonary disease) Qualifiers: COPD type: unspecified COPD Qualified Code(s): J44.9 - Chronic obstructive pulmonary disease, unspecified Is this a current diagnosis for this admission?: Yes Plan: The patient does remain on oxygen. Difficult to know if it is purely from his heart failure or from the combination of heart failure and underlying COPD. We will continue his Brio Ellipta. He also has nebulizers available. (10) Anemia Qualifiers: Anemia type: unspecified type Qualified Code(s): D64.9 - Anemia, unspecified Is this a current diagnosis for this admission?: Yes Plan: It is likely anemia related to his chronic kidney disease. It could be multifactorial. He did just receive 2 units of packed red blood cells and so the anemia work-up will need to be continued as an outpatient. Fecal occult blood testing was negative. (11) Hypothyroidism Qualifiers: Hypothyroidism type: unspecified Qualified Code(s): E03.9 - Hypothyroidism, unspecified Is this a current diagnosis for this admission?: Yes Plan: Continue levothyroxine. - Time Time Spent with patient: 15-24 minutes Medications reviewed and adjusted accordingly: Yes Anticipated Discharge Disposition: Home, Self Care Anticipated Discharge Timeframe: within 48 hours
[2019-10-03] MEDS: TAMSULOSIN HCL 0.4 MG CAP.SR.24H PO SCH (17:54)
[2019-10-03] MEDS: ATORVASTATIN CALCIUM 40 MG TABLET PO SCH (22:45)
[2019-10-04] MEDS: CLINDAMYCIN 600 MG/D5W RTU 600 MG/50 ML RTUPB IV SCH ×3 (04:07→17:25)
[2019-10-04] MEDS: LEVOTHYROXINE SODIUM 0.05 MG TABLET PO SCH (05:29)
[2019-10-04] MEDS: INSULIN LISPRO 100 UNIT/ML 3 ML VIAL SUBCUT SCH ×4 (08:04→22:20)
[2019-10-04 08:19] LABS: ABSOLUTE BASOPHILS # (AUTO) 0.1 10^3/uL (0.0-0.2); ABSOLUTE EOSINOPHILS # (AUTO) 0.1 10^3/uL (0.0-0.6); ABSOLUTE LYMPHOCYTES (AUTO) 1.2 10^3/uL (0.5-4.7); ABSOLUTE MONOCYTES (AUTO) 0.8 10^3/uL (0.1-1.4); ABSOLUTE NEUT (AUTO) 6.7 10^3/uL (1.7-8.2); BASOPHILS % (AUTO) 0.6 % (0-2); HEMATOCRIT 27.3 % (37.9-51.0); HEMOGLOBIN 8.8 g/dL (13.5-17.0); LYMPHOCYTES % (AUTO) 13.4 % (13-45); MEAN CORPUSCULAR HEMOGLOBIN 24.5 pg (27.0-33.4); MEAN CORPUSCULAR HGB CONC 32.5 g/dL (32.0-36.0); MEAN CORPUSCULAR VOLUME 76 fl (80-97); MONOCYTES % (AUTO) 9.6 % (3-13); PLATELET COUNT 331 10^3/uL (150-450); RED BLOOD COUNT 3.61 10^6/uL (4.35-5.55); RED CELL DISTRIBUTION WIDTH 18.6 % (11.5-14.0); SEGMENTED NEUTROPHILS % (AUTO) 75.4 % (42-78); TOTAL CELLS COUNTED % (AUTO) 100 %; WHITE BLOOD COUNT 8.9 10^3/uL (4.0-10.5)
[2019-10-04 08:51] LABS: ANION GAP 12 (5-19); BLOOD UREA NITROGEN 48 mg/dL (7-20); CALCIUM 8.5 mg/dL (8.4-10.2); CARBON DIOXIDE 27 mmol/L (22-30); CHLORIDE 96 mmol/L (98-107); GLUCOSE 102 mg/dL (75-110); POTASSIUM 3.5 mmol/L (3.6-5.0)
[2019-10-04] MEDS: DOCUSATE SODIUM 100 MG CAPSULE PO SCH (09:19)
[2019-10-04] MEDS: FUROSEMIDE INJ/PF 40 MG/4 ML SDV IV SCH ×2 (09:20→22:31)
[2019-10-04] MEDS: OMEGA-3 ACID ETHYL ESTERS 1 GM CAPSULE PO SCH ×2 (09:20→17:25)
[2019-10-04] MEDS: METOPROLOL TARTRATE 25 MG TABLET PO SCH ×2 (09:20→22:25)
[2019-10-04] MEDS: AMIODARONE HCL 200 MG TABLET PO SCH (09:20)
[2019-10-04] MEDS: RIVAROXABAN 15 MG TABLET PO SCH (09:20)
[2019-10-04] MEDS: FLUTICASONE/VILANTEROL 200-25 MCG/DOSE IH SCH (09:20)
--- NOTE | 2019-10-04 09:35 | PDOC PROGRESS REPORT ---
Subjective Progress Note for:: 10/04/19 Subjective:: FIDENCIO BARRIOS is a 78 year old male with history of hypertension, DM-II, permanent atrial fibrillation anticoagulated with xarelto, CAD s/p CABG on 01/07/1999 and PCI to 2 vessels in 2002 (the patient does not remember any details of those cardiovascular interventions), AAA s/p repair in 2005 or 2006, HFpEF and severe COPD on home O2 who is consulted to our service for further evaluation and treatment of decompensated HF. The patient was admitted to this facility 09/18/19 through 09/20/19 for CP, SALVATORE and syncope. At that time he did have a degree of fluid overload. He was ruled out for ACS and discharged home to follow up with his cardiology at [facility]. He apparently had a stress test with his negative developer in [place] however we don't have any of those records. His TTE during that admission demonstrated an EF if 55-60% among other findings. Unfortunately the patient developed progressive shortness of breath, dyspnea on exertion, significant bilateral lower extremity edema as well edema in his genitalia reason why he was admitted. Upon further questioning, the patient states that he kept taking his Lasix as prescribed prior to this hospitalization however was not following a low-sodium diet. This morning he feels much better. His telemetry shows slow atrial fibrillation without complex ventricular dysrhythmias. His fluid balance is -780 mL. His CBC continues to show worsening anemia with his most current hemoglobin at 7.0. He did admit to have black tarry stools approximately 1 month ago however denied recurrence of that issue as well as bright red blood per rectum and blood in the urine. 10/04/2019: The patient essentially had an uneventful night and received 2 units of blood yesterday bring in his hemoglobin up to 8.8 this morning. His potassium is on the low side at 3.5 and his creatinine is holding at 2.64. Unfortunately he is now positive in his fluid balance up to 1.33 L likely secondary to his blood t ransfusions. His telemetry continues to show atrial fibrillation. Nephrology consult is still pending. Physical exam on 10/04/19: GENERAL: The patient is sitting up at the side of the bed. Pleasant and conversational. Appears pale. Oriented x3 with normal mood. Not in acute distress. Well groomed and well developed. HEENT: Normocephalic, atraumatic. Pupils equal. Sclerae anicteric. Or opharynx moist. NECK: No JVD. No carotid bruits. LUNGS: Mild crackles at bases bilaterally. Normal respiratory effort without the use of accessory muscles or intercostal retractions. CARDIOVASCULAR: Irregularly irregular rate and rhythm, no murmurs, rubs, or gallops. PMI not displaced. ABDOMEN: Obese. No masses or tenderness to palpation. No bruit. No splenomegaly or hepatomegaly. No abdominal aorta bruit noted. EXTREMITIES: 2+ pitting edema bilaterally, no cyanosis, no clubbing. MUSCULOSKELETAL: No chest tenderness to palpation. NEUROLOGIC: Nonfocal. No gross sensory or motor deficits bilateral upper or lower extremities. Cardiac studies: Echo on 09/19/19: -EF 55-60% -Mild MR, trace AI, trace TR. -Minimal pericardial effusion. -Mild pHTN. Reason For Visit: ACUTE DIASTOLIC CHF EXACERBATION,ACUTE ON CHRONIC Physical Exam Vital Signs: Temp Pulse Resp BP Pulse Ox 97.5 F 82 21 H 108/62 93 10/04/19 05:34 10/04/19 05:34 10/04/19 05:34 10/04/19 05:34 10/04/19 05:34 Intake & Output 10/03/19 10/04/19 10/05/19 06:59 06:59 06:59 Intake Total 520 2588 Output Total 1300 475 Balance -780 2113 Weight 107.5 kg 123.2 kg Results Laboratory Results: 10/03/19 03:45 10/03/19 03:45 10/02/19 12:40 Blood Type O POSITIVE Antibody Screen NEGATIVE 10/02/19 10/02/19 10/03/19 12:40 18:50 00:33 Troponin I 0.025 0.027 0.025 NT-Pro-B Natriuret Pep 3910 H Impressions: Chest X-Ray 10/02/19 12:30 IMPRESSION: DIFFUSE AIRSPACE DISEASE, RIGHT GREATER THAN LEFT, CONSISTENT WITH PNEUMONIA. Scrotum Ultrasound 10/02/19 12:30 IMPRESSION: DIFFUSE SCROTAL WALL THICKENING. OTHERWISE UNREMARKABLE SCROTAL ULTRASOUND. NO EVIDENCE OF TESTICULAR MASS OR TORSION. 10/04/19 07:54 10/04/19 07:54 MCV 76 fl (80-97) L 10/04/19 07:54 MCH 24.5 pg (27.0-33.4) L 10/04/19 07:54 MCHC 32.5 g/dL (32.0-36.0) 10/04/19 07:54 RDW 18.6 % (11.5-14.0) H 10/04/19 07:54 Seg Neutrophils % 75.4 % (42-78) 10/04/19 07:54 Carbonic Acid 1.13 mmol/L (1.05-1.35) 10/02/19 14:30 HCO3/H2CO3 Ratio 22:1 10/02/19 14:30 ABG pH 7.44 (7.35-7.45) 10/02/19 14:30 ABG pCO2 37.4 mmHg (35-45) 10/02/19 14:30 ABG pO2 51.5 mmHg (80-100) L 10/02/19 14:30 ABG HCO3 24.9 mmol/L (20-24) H 10/02/19 14:30 ABG O2 Saturation 88.0 % (94-98) L 10/02/19 14:30 ABG Base Excess 1.0 mmol/L 10/02/19 14:30 VBG pH 7.40 (7.30-7.42) 10/02/19 12:40 VBG pCO2 44.4 mmHg (35-63) 10/02/19 12:40 VBG HCO3 26.9 mmol/L (20-32) 10/02/19 12:40 VBG Base Excess 1.9 mmol/L 10/02/19 12:40 FiO2 3L 10/02/19 14:30 Chloride 96 mmol/L (98-107) L 10/04/19 07:54 Carbon Dioxide 27 mmol/L (22-30) 10/04/19 07:54 Anion Gap 12 (5-19) 10/04/19 07:54 Est GFR ( Amer) 29 (>60) L 10/04/19 07:54 Glucose 102 mg/dL (75-110) 10/04/19 07:54 Calcium 8.5 mg/dL (8.4-10.2) 10/04/19 07:54 Phosphorus 5.3 mg/dL (2.5-4.5) H 10/03/19 03:45 Magnesium 2.5 mg/dL (1.6-2.3) H 10/03/19 03:45 Total Bilirubin 1.1 mg/dL (0.2-1.3) 10/02/19 12:40 AST 24 U/L (17-59) 10/02/19 12:40 Alkaline Phosphatase 58 U/L (38-126) 10/02/19 12:40 Total Protein 7.6 g/dL (6.3-8.2) 10/02/19 12:40 Albumin 4.0 g/dL (3.5-5.0) 10/02/19 12:40 Urine Color YELLOW 10/02/19 13:57 Urine Appearance CLEAR 10/02/19 13:57 Urine pH 5.0 (5.0-9.0) 10/02/19 13:57 Ur Specific [place] 1.014 10/02/19 13:57 Urine Protein NEGATIVE mg/dL (NEGATIVE) 10/02/19 13:57 Urine Glucose (UA) NEGATIVE mg/dL (NEGATIVE) 10/02/19 13:57 Urine Ketones NEGATIVE mg/dL (NEGATIVE) 10/02/19 13:57 Urine Blood NEGATIVE (NEGATIVE) 10/02/19 13:57 Urine Nitrite NEGATIVE (NEGATIVE) 10/02/19 13:57 Ur Leukocyte Esterase NEGATIVE (NEGATIVE) 10/02/19 13:57 Urine WBC (Auto) 0 /HPF 10/02/19 13:57 Urine RBC (Auto) 1 /HPF 10/02/19 13:57 Blood Type O POSITIVE 10/02/19 12:40 Antibody Screen NEGATIVE 10/02/19 12:40 10/02/19 10/02/19 10/03/19 12:40 18:50 00:33 Troponin I 0.025 0.027 0.025 NT-Pro-B Natriuret Pep 3910 H Current Medication List Generic Name Dose Route Start Last Admin Trade Name Freq PRN Reason Stop Dose Admin Acetaminophen 650 mg 10/02/19 17:06 Tylenol 325 Mg Tablet PO 11/01/19 17:05 Q4HP PRN pain or fever Albuterol 2 puff 10/02/19 22:15 Proair Hfa Inhalation Aerosol 8.5 Gm Mdi IH 11/01/19 22:14 Q4HP PRN SOB Albuterol/Ipratropium 3 ml 10/02/19 17:06 Duoneb 3 Ml Ampul NEB 11/01/19 17:05 RTQ2HP PRN SHORTNESS OF BREATH Amiodarone HCl 200 mg 10/03/19 10:00 10/04/19 09:20 Cordarone 200 Mg Tablet PO 11/02/19 09:59 200 mg DAILY ED Administration Atorvastatin Calcium 40 mg 10/02/19 22:00 10/03/19 22:45 Lipitor 40 Mg Tablet PO 11/01/19 21:59 40 mg QHS ED Administration Dextrose 12.5 gm 10/02/19 20:30 Dextrose Inj 50% Syringe (25 Gm/50 Ml) IV 11/01/19 20:29 PRN PRN FOR BG 50-69 IN ALERT PATIENT Protocol Dextrose 25 gm 10/02/19 20:30 Dextrose Inj 50% Syringe (25 Gm/50 Ml) IV 11/01/19 20:29 PRN PRN PER PROTOCOL Protocol Docusate Sodium 100 mg 10/04/19 10:00 10/04/19 09:19 Colace 100 Mg Capsule PO 11/03/19 09:59 100 mg DAILY ED Administration Fluticasone/Vilanterol 1 inh 10/03/19 10:00 10/04/19 09:20 Breo 200-25 Mcg Ellipta 14 Dose/Dpi IH 11/02/19 09:59 1 inhaler DAILY ED Administration Furosemide 40 mg 10/02/19 22:00 10/04/19 09:20 Lasix Inj/Pf 40 Mg/4 Ml Sdv IV 11/01/19 21:59 40 mg Q12 ED Administration Furosemide 10 mg 10/03/19 17:16 Lasix Inj/Pf 20 Mg/2 Ml Sdv IV 10/04/19 17:15 .AFTER FIRST UNIT PRN THIS MED IS NOT "PRN" Glucagon 1 mg 10/02/19 20:30 Glucagen Inj 1 Mg Vial IM 11/01/19 20:29 PRN PRN EVALUATE FOR BG < 70 Protocol Glucose 15 gm 10/02/19 20:30 Glutose 40% Gel 15 Gm Tube PO 11/01/19 20:29 PRN PRN FOR BG 50-69 IN ALERT PATIENT Protocol Glucose 30 gm 10/02/19 20:30 Glutose 40% Gel 15 Gm Tube PO 11/01/19 20:29 PRN PRN FOR BG < 50 IN ALERT PATIENT Protocol Clindamycin Phosphate/Dextrose 600 mg in 50 mls @ 50 mls/hr 10/02/19 18:00 10/04/19 09:19 Cleocin Rtu 600 Mg/D5w 50 Ml Premix IV 10/09/19 17:59 50 mls/hr Q8A ED 50 mls/hr Administration Sodium Chloride 250 mls @ 30 mls/hr 10/03/19 17:10 Nacl 0.9% 250 Ml Iv Soln IV 10/04/19 17:09 .DURING TRANSFUSION PRN THIS MED IS NOT "PRN" Sodium Chloride 250 mls @ 0 mls/hr 10/03/19 17:10 Nacl 0.9% 250 Ml Iv Soln IV 10/04/19 17:09 CONTINUOUS PRN AFTER EACH UNIT As Directed Insulin Human Lispro 0 - 12 unit 10/02/19 22:00 10/04/19 08:04 Humalog Insulin 100 Unit/1 Ml 3 Ml Vial SUBCUT 11/01/19 21:59 Not Given ACHS ED Protocol Levothyroxine Sodium 0.05 mg 10/03/19 06:00 10/04/19 05:29 Synthroid 0.05 Mg Tablet PO 11/02/19 05:59 0.05 mg Q6AM ED Administration Metoprolol Tartrate 25 mg 10/02/19 22:00 10/04/19 09:20 Lopressor 25 Mg Tablet PO 11/01/19 21:59 25 mg Q12 ED Administration Ydasw-5-Nlwk Ethyl Esters 1 gm 10/02/19 18:45 10/04/19 09:20 Lovaza 1 Gm Capsule PO 11/01/19 18:44 1 gm BID ED Administration Ondansetron HCl 4 mg 10/02/19 17:06 Zofran Odt 4 Mg Tablet PO 11/01/19 17:05 Q4HP PRN FOR NAUSEA/VOMITING Ondansetron HCl 4 mg 10/02/19 17:06 Zofran Inj/Pf 4 Mg/2 Ml Sdv IV 11/01/19 17:05 Q4HP PRN FOR NAUSEA/VOMITING Rivaroxaban 15 mg 10/03/19 10:00 10/04/19 09:20 Xarelto 15 Mg Tablet PO 11/02/19 09:59 15 mg DAILY ED Administration Senna/Docusate Sodium 1 each 10/03/19 17:18 10/03/19 18:30 Senna Plus Tablet PO 11/02/19 17:17 1 each DAILYP PRN Administration UNRESOLVED CONSTIPATION Tamsulosin HCl 0.4 mg 10/03/19 18:00 10/03/19 17:54 Flomax 0.4 Mg Cap.Sr PO 11/02/19 17:59 0.4 mg PCSUPPER ED Administration Tramadol HCl 50 mg 10/02/19 17:10 10/03/19 06:22 Ultram 50 Mg Tablet PO 10/09/19 17:09 50 mg TIDP PRN Administration FOR PAIN Discontinued Medications Generic Name Dose Route Start Last Admin Trade Name Freq PRN Reason Stop Dose Admin Docusate Sodium 100 mg 10/02/19 18:00 10/02/19 18:44 Colace 100 Mg Capsule PO 11/01/19 17:59 100 mg Q2D ED Administration Furosemide 40 mg 10/02/19 13:22 10/02/19 13:47 Lasix Inj/Pf 20 Mg/2 Ml Sdv IV 10/02/19 13:23 40 mg NOW ONE Administration Nitroglycerin 1 gm 10/02/19 13:23 10/02/19 13:45 Nitrol 2% Ointment 1gm Packet TP 10/02/19 13:24 1 gm NOW ONE Administration Potassium Chloride 20 meq 10/02/19 13:39 10/02/19 13:48 Potassium Chloride 20 Meq Packet PO 10/02/19 13:40 20 meq NOW ONE Administration Assessment & Plan - Diagnosis (1) Diastolic CHF, acute on chronic Is this a current diagnosis for this admission?: Yes Plan: The patient is continues to be fluid overloaded particularly after receiving 2 units of blood and IV antibiotics which brought up his fluid balance to +1.33 L. His heart failure exacerbation is likely secondary to dietary indiscretions. Recommendations: -Continue diuresis with Lasix IV. -Add metolazone 5 mg p.o. 30 minutes prior to Lasix dose. -Consider adding afterload reduction as tolerated by blood pressure. -Restrict fluid intake to 1500 cc daily. -Low sodium diet, less than 1500 mg daily. -Strict intake and output. -Daily weights. -Daily BMP and magnesium. -Replace electrolytes as needed. -Get cardiovascular records from [facility]. (2) Acute renal failure superimposed on chronic kidney disease Qualifiers: Acute renal failure type: unspecified Chronic kidney disease stage: stage 3 (moderate) Qualified Code(s): N17.9 - Acute kidney failure, unspecified; N18.3 - Chronic kidney disease, stage 3 (moderate) Is this a current diagnosis for this admission?: Yes Plan: His creatinine is essentially stable at 2.64 as of this morning. Nephrology consult on 10/02/2019 still pending evaluation. Recommendations: -Nephrology consult as requested by hospitalist service. -Further management per nephrology and hospitalist teams. (3) Chronic atrial fibrillation Is this a current diagnosis for this admission?: Yes Plan: He is rate controlled and anticoagulated with Xarelto. Unfortunately his hemoglobin continues to drop and the patient admitted this morning to ne that 1 month ago he had at least one episode of melena. Recommendations: -Temporarily stop Xarelto until GI work-up completed. (4) HTN (hypertension) Is this a current diagnosis for this admission?: Yes Plan: His BP is at goal. Will continue to monitor. (5) Anemia Qualifiers: Anemia type: unspecified type Qualified Code(s): D64.9 - Anemia, unspecified Is this a current diagnosis for this admission?: Yes Plan: His hemoglobin is up to 8.8 this morning after receiving 2 units of blood. He admitted this morning to having at least one episode of melena approximately 1 year ago. Recommendations: -Anemia work up per hospitalist service.
--- NOTE | 2019-10-04 10:14 | EKG REPORT ---
SEVERITY:- ABNORMAL ECG - ATRIAL FIBRILLATION RBBB AND LAFB : Confirmed by: Jovana Bennett MD 04-Oct-2019 10:14:07
--- NOTE | 2019-10-04 15:05 | PDOC PROGRESS REPORT ---
Subjective Progress Note for:: 10/04/19 Reason For Visit: ACUTE DIASTOLIC CHF EXACERBATION,ACUTE ON CHRONIC Physical Exam Vital Signs: Temp Pulse Resp BP Pulse Ox 97.8 F 97 18 123/61 97 10/04/19 11:54 10/04/19 14:00 10/04/19 13:04 10/04/19 11:54 10/04/19 13:04 Intake & Output 10/03/19 10/04/19 10/05/19 06:59 06:59 06:59 Intake Total 520 2928 1135 Output Total 1300 475 500 Balance -780 2453 635 Weight 107.5 kg 123.2 kg Mouth exam: PRESENT: moist, tongue midline Respiratory exam: PRESENT: clear to auscultation varsha. ABSENT: wheezes Cardiovascular exam: PRESENT: +S1, +S2, systolic murmur - 3/6 GI/Abdominal exam: PRESENT: normal bowel sounds, soft Extremities exam: PRESENT: +2 edema Results Laboratory Results: 10/04/19 07:54 10/04/19 07:54 10/02/19 10/04/19 10/04/19 12:40 07:54 07:54 WBC 8.9 RBC 3.61 L Hgb 8.8 L Hct 27.3 L MCV 76 L MCH 24.5 L MCHC 32.5 RDW 18.6 H Plt Count 331 Seg Neutrophils % 75.4 Sodium 135.0 L Potassium 3.5 L Chloride 96 L Carbon Dioxide 27 Anion Gap 12 BUN 48 H Creatinine 2.64 H Est GFR ( Amer) 29 L Glucose 102 Calcium 8.5 Blood Type O POSITIVE Antibody Screen NEGATIVE 10/02/19 10/02/19 10/03/19 12:40 18:50 00:33 Troponin I 0.025 0.027 0.025 NT-Pro-B Natriuret Pep 3910 H Impressions: Chest X-Ray 10/02/19 12:30 IMPRESSION: DIFFUSE AIRSPACE DISEASE, RIGHT GREATER THAN LEFT, CONSISTENT WITH PNEUMONIA. Scrotum Ultrasound 10/02/19 12:30 IMPRESSION: DIFFUSE SCROTAL WALL THICKENING. OTHERWISE UNREMARKABLE SCROTAL ULTRASOUND. NO EVIDENCE OF TESTICULAR MASS OR TORSION.
--- NOTE | 2019-10-04 16:41 | PDOC CONSULTATION ---
Consultation Consult Date: 10/04/19 Provider Consulted: Betina BARKLEY Consult reason:: SALVATORE on CKD History of Present Illness Admission Date/PCP: 10/02/19 14:30 History of Present Illness: FIDENCIO BARRIOS is a 78 year old male past medical history significant for CKD3, Edema, IA status post CABG with stents, AAA status post stent, COPD on home O2, HTN, HLD, DM2, chronic A. fib on Xarelto. He came to the ER for worsening SOB over the past couple of weeks. Prior to that [facility] and SALVATORE. He claims that after discharge from the hospital he started to get progressively worse with his SOB, edema on his legs and orthopnea. In the ER labs and imaging were done. The creatinine was 2.88 which is up from a few weeks ago when it was 2.4 and 1.6 in 2018 when he last saw me. Hemoglobin was found to be 7.7. Chest x-ray showed bilateral airspace disease with concerns for pneumonia. Also found to have an infection on his scrotum. He was started on IV furosemide for the fluid. Cardiology and Nephrology was consulted When seen today he claims to be doing well. He currently is less SOB then when he was admitted. He does still have SOB with exertion and orthopnea. According to him the edema on his legs are getting better. He denies any SOB or heart palpitations. He denies difficulty with urination or flank pain. He was schedule to see me yesterday (10/03/19) for his post hospital follow up. Prior to his last hospitalization he was seen by me for the first time in two years. He main complaint then was increasing edema with weeping on his legs. He was no SOB at the time. He also denied having chest pain or heart palpitations. His was started on furosemide 40mg bid. His weight and swelling had been decreasing at that time. He unfortunately missed his two week follow up appointment. Then ended up in the hospital the first time. Past Medical History Cardiac Medical History: Reports: Atrial Fibrillation, Hyperlipidemia, Myocardial Infarction Denies: Pulmonary Embolism Pulmonary Medical History: Reports: Chronic Obstructive Pulmonary Disease (COPD) Endocrine Medical History: Reports: Diabetes Mellitus Type 2 Denies: Diabetes Mellitus Type 1 Renal/ Medical History: Reports: Chronic Kidney Disease Stage III Psychiatric Medical History: Denies: Depression Past Surgical History Past Surgical History: Reports: Coronary Artery Bypass Graft Social History Lives with: Alone Smoking Status: Former Smoker Frequency of Alcohol Use: None Hx Recreational Drug Use: No Drugs: None Hx Prescription Drug Abuse: No - Advance Directive Resuscitation Status: Do Not Intubate Family History Parental Family History Reviewed: Yes Children Family History Reviewed: Unknown Sibling(s) Family History Reviewed.: Unknown Medication/Allergy Home Medications: Albuterol Sulfate [Proair HFA Inhalation Aerosol 8.5 gm MDI] 2 puff IH Q4HP PRN 09/19/19 Amiodarone HCl [Cordarone 200 mg Tablet] 200 mg PO DAILY 09/19/19 Amlodipine Besylate [Norvasc 10 mg Tablet] 10 mg PO DAILY 09/19/19 Atorvastatin Calcium [Lipitor 40 mg Tablet] 40 mg PO QHS 09/19/19 Budesonide/Formoterol Fumarate [Symbicort HFA 160-4.5 mcg Inhaler 6 gm] 2 puff IH Q12 09/19/19 Levothyroxine Sodium [Synthroid 0.05 mg Tablet] 50 mcg PO QAM 09/19/19 Metoprolol Tartrate [Lopressor 25 mg Tablet] 25 mg PO Q12 09/19/19 [place]-3/Dha/Epa/Fish Oil [Fish Oil 1,000 mg Softgel] 1 each PO BID 09/19/19 Rivaroxaban [Xarelto 15 mg Tablet] 15 mg PO DAILY 09/19/19 Tramadol HCl [Ultram 50 mg Tablet] 50 mg PO TIDP PRN 09/19/19 Allergies/Adverse Reactions: No Known Allergies Allergy (Verified 09/18/19 17:56) Review of Systems Constitutional: ABSENT: anorexia, chills, fatigue, fever(s), weakness Eyes: ABSENT: visual disturbances Cardiovascular: PRESENT: dyspnea on exertion, edema, orthropnea. ABSENT: chest pain, palpitations Respiratory: PRESENT: cough, dyspnea. ABSENT: sputum Gastrointestinal: ABSENT: abdominal pain, constipation, diarrhea, nausea, vomiting Genitourinary: ABSENT: difficulty urinating, dysuria Musculoskeletal: ABSENT: back pain, muscle weakness Neurological: ABSENT: dizziness, weakness Physical Exam Vital Signs: Temp Pulse Resp BP Pulse Ox 97.8 F 97 18 123/61 97 10/04/19 11:54 10/04/19 14:00 10/04/19 13:04 10/04/19 11:54 10/04/19 13:04 Intake & Output 10/03/19 10/04/19 10/05/19 06:59 06:59 06:59 Intake Total 520 2818 1135 Output Total 2886 009 500 Balance -780 5444 635 Weight 107.5 kg 123.2 kg General appearance: PRESENT: no acute distress, well-developed, well-nourished Mouth exam: PRESENT: moist, neck supple Neck exam: ABSENT: JVD, tracheal deviation Respiratory exam: PRESENT: crackles - -base of the lungs. ABSENT: accessory muscle use, clear to auscultation varsha, rales, rhonchi Cardiovascular exam: PRESENT: +S1, +S2 GI/Abdominal exam: PRESENT: soft. ABSENT: tenderness Extremities exam: PRESENT: pedal edema, +2 edema. ABSENT: tenderness Musculoskeletal exam: PRESENT: normal inspection. ABSENT: tenderness Neurological exam: PRESENT: alert, awake, oriented to person, oriented to place, oriented to time, oriented to situation Psychiatric exam: PRESENT: appropriate affect, normal mood Skin exam: PRESENT: dry, intact, warm. ABSENT: cyanosis Results Laboratory Results: 10/04/19 07:54 10/04/19 07:54 10/02/19 10/04/19 10/04/19 12:40 07:54 07:54 WBC 8.9 RBC 3.61 L Hgb 8.8 L Hct 27.3 L MCV 76 L MCH 24.5 L MCHC 32.5 RDW 18.6 H Plt Count 331 Seg Neutrophils % 75.4 Sodium 135.0 L Potassium 3.5 L Chloride 96 L Carbon Dioxide 27 Anion Gap 12 BUN 48 H Creatinine 2.64 H Est GFR ( Amer) 29 L Glucose 102 Calcium 8.5 Blood Type O POSITIVE Antibody Screen NEGATIVE 10/02/19 10/02/19 10/03/19 12:40 18:50 00:33 Troponin I 0.025 0.027 0.025 NT-Pro-B Natriuret Pep 3910 H Impressions: Chest X-Ray 10/02/19 12:30 IMPRESSION: DIFFUSE AIRSPACE DISEASE, RIGHT GREATER THAN LEFT, CONSISTENT WITH PNEUMONIA. Scrotum Ultrasound 10/02/19 12:30 IMPRESSION: DIFFUSE SCROTAL WALL THICKENING. OTHERWISE UNREMARKABLE SCROTAL ULTRASOUND. NO EVIDENCE OF TESTICULAR MASS OR TORSION. Assessment & Plan - Diagnosis (1) Acute kidney injury superimposed on CKD Is this a current diagnosis for this admission?: Yes Plan: nonoliguric, looks to be pre-renal due to CHF. Possible ATN from scrotal infection. Will also get an updated renal ultrasound to rule out any partial obstruction. Continue on IV furosemide and metolazone. Needs stricter I's&O's to get a more accurate picture of his diuresis. Follow up with labs tomorrow morning. (2) Acute decompensated heart failure Plan: Continue on IV furosemide and metolazone that was recently added. I agree with the patient needing to be on a low sodium diet. Oral fluids are also needing to be restricted. Will look to also get a renal ultrasound to make sure he does not have a partial obstruction making the diuretics less affective. He also needs close monitoring of his I's&O's. (3) Anemia Qualifiers: Anemia type: unspecified type Qualified Code(s): D64.9 - Anemia, unspecified Is this a current diagnosis for this admission?: Yes Plan: He recently received two units of PRBC. Will need to get anemia labs after some of the iron settles out. He may be in need of retacrit at this time. Monitor and trend hemoglobin tomorrow. (4) COPD (chronic obstructive pulmonary disease) Is this a current diagnosis for this admission?: Yes Plan: per hospitalist services (5) Chronic atrial fibrillation Is this a current diagnosis for this admission?: Yes Plan: per cardiology (6) HTN (hypertension) Is this a current diagnosis for this admission?: Yes Plan: currently controlled, to the low end of normal. Will need to monitor as fluid is removed. (7) Skin ulcer of scrotum Is this a current diagnosis for this admission?: Yes Plan: on clindamycin (8) T2DM (type 2 diabetes mellitus) Qualifiers: Diabetes mellitus intermediate insulin use: without intermediate use Diabetes mellitus complication status: with kidney complications Diabetes mellitus complication detail: with chronic kidney disease Chronic kidney disease stage: stage 3 (moderate) Qualified Code(s): E11.22 - Type 2 diabetes mellitus with diabetic chronic kidney disease; N18.3 - Chronic kidney disease, stage 3 (moderate) Is this a current diagnosis for this admission?: Yes (9) Hypokalemia Plan: will start him on daily potassium.
[2019-10-04] MEDS: SODIUM CHLORIDE NASAL SPRAY 44 ML NASL SCH ×2 (17:25→22:25)
[2019-10-04] MEDS: TAMSULOSIN HCL 0.4 MG CAP.SR.24H PO SCH (17:25)
[2019-10-04] MEDS: POTASSIUM CHLORIDE 10 MEQ TABLET.ER PO SCH (17:28)
--- NOTE | 2019-10-04 17:55 | RADIOLOGY REPORT (SQ) ---
EXAM DESCRIPTION: U/S RETROPERITON LTD IMAGES COMPLETED DATE/TIME: 10/04/2019 5:39 pm REASON FOR STUDY: SALVATORE COMPARISON: None. TECHNIQUE: Dynamic and static grayscale images acquired of the kidneys and bladder and recorded on P ACS. Additional selected color Doppler and spectral images recorded. LIMITATIONS: None. FINDINGS: RIGHT KIDNEY: Normal size, 11 cm. Mild cortical thinning. No solid or suspicious masses . No hydronephrosis. No calcifications. LEFT KIDNEY: Normal size, 14.1 cm. Mild cortical thinning. No solid masses. Multiple cysts. The largest measures 9 cm. No hydronephrosis. No calcifications. BLADDER: No masses. Ureteral jets are not seen. 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 Body habitus prevented confirmation of that. IMPRESSION: Mild cortical thinning bilaterally. Horseshoe kidney by history. No stones. No hydron ephrosis. No bladder mass. TECHNICAL DOCUMENTATION: JOB ID: [id number] [employer]- All Rights Reserved Reading location - IP/workstation name: [email or web address]
--- NOTE | 2019-10-04 18:56 | PDOC PROGRESS REPORT ---
Subjective Progress Note for:: 10/04/19 Subjective:: The patient does report feeling better. He believes the swelling in his legs is decreased. He did receive 2 units of packed red blood cells to maintain good perfusion with his underlying heart and kidney disease. He has been receiving furosemide twice a day and I do not believe he is suffering from volume overload specifically related to the transfusions. He does report that he is extremely stressed. Evidently there are children in the home that are misbehaving and he is quite worried. Reason For Visit: ACUTE DIASTOLIC CHF EXACERBATION,ACUTE ON CHRONIC Physical Exam Vital Signs: Temp Pulse Resp BP Pulse Ox 97.3 F 103 H 18 131/67 H 80 L 10/04/19 16:45 10/04/19 16:45 10/04/19 16:45 10/04/19 16:45 10/04/19 17:33 Intake & Output 10/03/19 10/04/19 10/05/19 06:59 06:59 06:59 Intake Total 520 2928 1185 Output Total 1300 475 500 Balance -780 2453 685 Weight 107.5 kg 123.2 kg General appearance: PRESENT: no acute distress, cooperative, well-developed, other - Remains on nasal cannula. Head exam: PRESENT: atraumatic, normocephalic Eye exam: PRESENT: conjunctiva pale. ABSENT: scleral icterus Ear exam: PRESENT: normal external ear exam. ABSENT: bleeding, drainage Mouth exam: PRESENT: moist, tongue midline Respiratory exam: PRESENT: clear to auscultation varsha, symmetrical, unlabored. ABSENT: rales, rhonchi, tachypnea, wheezes Cardiovascular exam: PRESENT: RRR, +S1, +S2. ABSENT: bradycardia, diastolic murmur, irregular rhythm, systolic murmur, tachycardia GI/Abdominal exam: PRESENT: normal bowel sounds, soft. ABSENT: distended, tenderness Rectal exam: PRESENT: deferred Gentrourinary exam: ABSENT: indwelling catheter Extremities exam: PRESENT: +2 edema Musculoskeletal exam: PRESENT: ambulatory. ABSENT: deformity, dislocation Neurological exam: PRESENT: alert, awake, oriented to person, oriented to place, oriented to time, oriented to situation, CN II-XII grossly intact. ABSENT: altered Psychiatric exam: PRESENT: flat affect. ABSENT: agitated, anxious Focused psych exam: ABSENT: delusional, paranoid, restlessness Skin exam: PRESENT: dry, pallor, warm Results Laboratory Results: 10/04/19 07:54 10/04/19 07:54 10/02/19 10/04/19 10/04/19 12:40 07:54 07:54 WBC 8.9 RBC 3.61 L Hgb 8.8 L Hct 27.3 L MCV 76 L MCH 24.5 L MCHC 32.5 RDW 18.6 H Plt Count 331 Seg Neutrophils % 75.4 Sodium 135.0 L Potassium 3.5 L Chloride 96 L Carbon Dioxide 27 Anion Gap 12 BUN 48 H Creatinine 2.64 H Est GFR ( Amer) 29 L Glucose 102 Calcium 8.5 Blood Type O POSITIVE Antibody Screen NEGATIVE 10/02/19 10/02/19 10/03/19 12:40 18:50 00:33 Troponin I 0.025 0.027 0.025 NT-Pro-B Natriuret Pep 3910 H Impressions: Chest X-Ray 10/02/19 12:30 IMPRESSION: DIFFUSE AIRSPACE DISEASE, RIGHT GREATER THAN LEFT, CONSISTENT WITH PNEUMONIA. Scrotum Ultrasound 10/02/19 12:30 IMPRESSION: DIFFUSE SCROTAL WALL THICKENING. OTHERWISE UNREMARKABLE SCROTAL ULTRASOUND. NO EVIDENCE OF TESTICULAR MASS OR TORSION. Renal Ultrasound 10/04/19 00:00 IMPRESSION: Mild cortical thinning bilaterally. Horseshoe kidney by history. No stones. No hydronephrosis. No bladder mass. Assessment and Plan - Diagnosis (1) Diastolic CHF, acute on chronic Is this a current diagnosis for this admission?: Yes Plan: Still with good diuresis. I have added metolazone before the morning furosemide per cardiology's recommendations. We will continue his 1.5 L fluid restriction with low-sodium diet. (2) Acute on chronic respiratory failure with hypoxemia Is this a current diagnosis for this admission?: Yes Plan: The patient has required oxygen supplementation since admission. His work of breathing has improved. Because of his underlying COPD and chronic heart failure he will need oxygen for home use. This is likely to be permanent. We will obtain walking oximetry and place an order for home oxygen. (3) Acute kidney injury superimposed on CKD Is this a current diagnosis for this admission?: Yes (4) Skin ulcer of scrotum Is this a current diagnosis for this admission?: Yes Plan: Continue clindamycin (5) Longstanding persistent atrial fibrillation Is this a current diagnosis for this admission?: Yes Plan: Borderline tachycardic today. It certainly could be related to the stress he w as reporting earlier. He was clearly upset. Continue current medication regimen as well as monitoring on telemetry. (6) HTN (hypertension) Qualifiers: Hypertension type: essential hypertension Qualified Code(s): I10 - Essential (primary) hypertension Is this a current diagnosis for this admission?: Yes Plan: Continue to monitor blood pressures especially with the addition of metolazone to the furosemide. We will need to monitor electrolytes as well. (7) Hypokalemia Is this a current diagnosis for this admission?: Yes Plan: With aggressive diuresis serum potassium dropped to 3.5. Potassium chloride has been added. Continue to monitor electrolytes. (8) Hyperglycemia due to diabetes mellitus Is this a current diagnosis for this admission?: Yes Plan: Accu-Cheks and sliding scale only. Controlled carbohydrate diet. Excellent glucose control. (9) Chronic anticoagulation Is this a current diagnosis for this admission?: Yes Plan: Continue Xarelto (10) HLD (hyperlipidemia) Qualifiers: Hyperlipidemia type: unspecified Qualified Code(s): E78.5 - Hyperlipidemia, unspecified Is this a current diagnosis for this admission?: Yes Plan: Continue statin therapy. (11) COPD (chronic obstructive pulmonary disease) Qualifiers: COPD type: unspecified COPD Qualified Code(s): J44.9 - Chronic obstructive pulmonary disease, unspecified Is this a current diagnosis for this admission?: Yes Plan: The patient does remain on oxygen. Difficult to know if it is purely from his heart failure or from the combination of heart failure and underlying COPD. We will continue his Brio Ellipta. He also has nebulizers available. (12) Anemia Qualifiers: Anemia type: unspecified type Qualified Code(s): D64.9 - Anemia, unspecified Is this a current diagnosis for this admission?: Yes Plan: Complete work-up as an outpatient as noted previously. (13) Hypothyroidism Qualifiers: Hypothyroidism type: unspecified Qualified Code(s): E03.9 - Hypothyroidism, unspecified Is this a current diagnosis for this admission?: Yes Plan: Continue levothyroxine. We will recheck TSH, free T3 and free T4 especially with chronic amiodarone use. - Time Time Spent with patient: 15-24 minutes Medications reviewed and adjusted accordingly: Yes Anticipated Discharge Disposition: Home with Home Health Anticipated Discharge Timeframe: within 72 hours
[2019-10-04] MEDS: ATORVASTATIN CALCIUM 40 MG TABLET PO SCH (22:25)
[2019-10-05] MEDS: TRAMADOL HCL 50 MG TABLET PO PRN (00:35)
[2019-10-05] MEDS: CLINDAMYCIN 600 MG/D5W RTU 600 MG/50 ML RTUPB IV SCH ×3 (01:33→17:10)
[2019-10-05] MEDS: LEVOTHYROXINE SODIUM 0.05 MG TABLET PO SCH (05:29)
[2019-10-05 06:37] LABS: ABSOLUTE EOSINOPHILS # (AUTO) 0.2 10^3/uL (0.0-0.6); ABSOLUTE LYMPHOCYTES (AUTO) 1.1 10^3/uL (0.5-4.7); ABSOLUTE MONOCYTES (AUTO) 1.1 10^3/uL (0.1-1.4); ABSOLUTE NEUT (AUTO) 6.4 10^3/uL (1.7-8.2); BASOPHILS % (AUTO) 0.5 % (0-2); HEMATOCRIT 25.9 % (37.9-51.0); HEMOGLOBIN 8.3 g/dL (13.5-17.0); LYMPHOCYTES % (AUTO) 12.7 % (13-45); MEAN CORPUSCULAR HEMOGLOBIN 24.2 pg (27.0-33.4); MEAN CORPUSCULAR VOLUME 76 fl (80-97); MONOCYTES % (AUTO) 12.1 % (3-13); PLATELET COUNT 326 10^3/uL (150-450); RED BLOOD COUNT 3.42 10^6/uL (4.35-5.55); RED CELL DISTRIBUTION WIDTH 18.5 % (11.5-14.0); SEGMENTED NEUTROPHILS % (AUTO) 72.7 % (42-78); TOTAL CELLS COUNTED % (AUTO) 100 %; WHITE BLOOD COUNT 8.8 10^3/uL (4.0-10.5)
[2019-10-05 06:59] LABS: ALBUMIN 3.6 g/dL (3.5-5.0); ANION GAP 11 (5-19); BLOOD UREA NITROGEN 46 mg/dL (7-20); CALCIUM 8.3 mg/dL (8.4-10.2); CARBON DIOXIDE 26 mmol/L (22-30); CHLORIDE 99 mmol/L (98-107); GLUCOSE 104 mg/dL (75-110); PHOSPHORUS 4.6 mg/dL (2.5-4.5); POTASSIUM 3.5 mmol/L (3.6-5.0)
[2019-10-05 07:10] LABS: FREE T3 2.43 pg/mL (2.77-5.27); FREE T4 (FREE THYROXINE) 1.67 ng/dL (0.78-2.19)
[2019-10-05 07:24] LABS: THYROID STIMULATING HORMONE 2.78 uIU/mL (0.47-4.68)
[2019-10-05] MEDS: SODIUM CHLORIDE NASAL SPRAY 44 ML NASL SCH ×4 (07:45→21:23)
--- NOTE | 2019-10-05 08:50 | PDOC PROGRESS REPORT ---
Subjective Progress Note for:: 10/05/19 Subjective:: FIDENCIO BARRIOS is a 78 year old male with history of hypertension, DM-II, permanent atrial fibrillation anticoagulated with xarelto, CAD s/p CABG on 01/07/1999 and PCI to 2 vessels in 2002 (the patient does not remember any details of those cardiovascular interventions), AAA s/p repair in 2005 or 2006, HFpEF and severe COPD on home O2 who is consulted to our service for further evaluation and treatment of decompensated HF. The patient was admitted to this facility 09/18/19 through 09/20/19 for CP, SALVATORE and syncope. At that time he did have a degree of fluid overload. He was ruled out for ACS and discharged home to follow up with his cardiology at [facility]. He apparently had a stress test with his parliamentary librarian in [place] however we don't have any of those records. His TTE during that admission demonstrated an EF if 55-60% among other findings. Unfortunately the patient developed progressive shortness of breath, dyspnea on exertion, significant bilateral lower extremity edema as well edema in his genitalia reason why he was admitted. Upon further questioning, the patient states that he kept taking his Lasix as prescribed prior to this hospitalization however was not following a low-sodium diet. This morning he feels much better. His telemetry shows slow atrial fibrillation without complex ventricular dysrhythmias. His fluid balance is -780 mL. His CBC continues to show worsening anemia with his most current hemoglobin at 7.0. He did admit to have black tarry stools approximately 1 month ago however denied recurrence of that issue as well as bright red blood per rectum and blood in the urine. 10/05/2019: The patient essentially had an uneventful night other than PO2 did go down with a short walk and was placed on oxygen. This morning he looks more short of breath than yesterday and actually complains of being more short of breath. His fluid balance is + 2.028 L if I/O are accurate. Nephrology team is now philip berry. Of note, the patient is emotionally upset secondary to domestic issues at home. Physical exam on 10/05/19: GENERAL: The patient is sitting up at the side of the bed. Pleasant and conversational. Appears pale. Oriented x3 with normal mood. Speaking in short sentences and more short of breath than yesterday. Well groomed and well developed. HEENT: Normocephalic, atraumatic. Pupils equal. Sclerae anicteric. Oropharynx moist. NECK: No JVD. No carotid bruits. LUNGS: Mild crackles at bases bilaterally. Normal respiratory effort without the use of accessory muscles or intercostal retractions. CARDIOVASCULAR: Irregularly irregular rate and rhythm, no murmurs, rubs, or gallops. PMI not displaced. ABDOMEN: Obese. No masses or tenderness to palpation. No bruit. No splenomega ly or hepatomegaly. No abdominal aorta bruit noted. EXTREMITIES: 2+ pitting edema bilaterally, no cyanosis, no clubbing. MUSCULOSKELETAL: No chest tenderness to palpation. NEUROLOGIC: Nonfocal. No gross sensory or motor deficits bilateral upper or lower extremities. Cardiac studies: Echo on 09/19/19: -EF 55-60% -Mild MR, trace AI, trace TR. -Minimal pericardial effusion. -Mild pHTN. Reason For Visit: ACUTE DIASTOLIC CHF EXACERBATION,ACUTE ON CHRONIC Physical Exam Vital Signs: Temp Pulse Resp BP Pulse Ox 97.8 F 69 20 113/62 89 L 10/05/19 03:21 10/05/19 03:21 10/05/19 03:21 10/05/19 03:21 10/05/19 03:21 Intake & Output 10/03/19 10/04/19 10/05/19 06:59 06:59 06:59 Intake Total 520 2928 2355 Output Total 2364 276 3815 Balance -780 8993 355 Weight 107.5 kg 123.2 kg 120.2 kg Results Laboratory Results: 10/04/19 07:54 10/04/19 07:54 10/04/19 10/04/19 07:54 07:54 WBC 8.9 RBC 3.61 L Hgb 8.8 L Hct 27.3 L MCV 76 L MCH 24.5 L MCHC 32.5 RDW 18.6 H Plt Count 331 Seg Neutrophils % 75.4 Sodium 135.0 L Potassium 3.5 L Chloride 96 L Carbon Dioxide 27 Anion Gap 12 BUN 48 H Creatinine 2.64 H Est GFR ( Amer) 29 L Glucose 102 Calcium 8.5 10/02/19 10/02/19 10/03/19 12:40 18:50 00:33 Troponin I 0.025 0.027 0.025 NT-Pro-B Natriuret Pep 3910 H Impressions: Chest X-Ray 10/02/19 12:30 IMPRESSION: DIFFUSE AIRSPACE DISEASE, RIGHT GREATER THAN LEFT, CONSISTENT WITH PNEUMONIA. Scrotum Ultrasound 10/02/19 12:30 IMPRESSION: DIFFUSE SCROTAL WALL THICKENING. OTHERWISE UNREMARKABLE SCROTAL ULTRASOUND. NO EVIDENCE OF TESTICULAR MASS OR TORSION. Renal Ultrasound 10/04/19 00:00 IMPRESSION: Mild cortical thinning bilaterally. Horseshoe kidney by history. No stones. No hydronephrosis. No bladder mass. MCV 76 fl (80-97) L 10/04/19 07:54 MCH 24.5 pg (27.0-33.4) L 10/04/19 07:54 MCHC 32.5 g/dL (32.0-36.0) 10/04/19 07:54 RDW 18.6 % (11.5-14.0) H 10/04/19 07:54 Seg Neutrophils % 75.4 % (42-78) 10/04/19 07:54 Carbonic Acid 1.13 mmol/L (1.05-1.35) 10/02/19 14:30 HCO3/H2CO3 Ratio 22:1 10/02/19 14:30 ABG pH 7.44 (7.35-7.45) 10/02/19 14:30 ABG pCO2 37.4 mmHg (35-45) 10/02/19 14:30 ABG pO2 51.5 mmHg (80-100) L 10/02/19 14:30 ABG HCO3 24.9 mmol/L (20-24) H 10/02/19 14:30 ABG O2 Saturation 88.0 % (94-98) L 10/02/19 14:30 ABG Base Excess 1.0 mmol/L 10/02/19 14:30 VBG pH 7.40 (7.30-7.42) 10/02/19 12:40 VBG pCO2 44.4 mmHg (35-63) 10/02/19 12:40 VBG HCO3 26.9 mmol/L (20-32) 10/02/19 12:40 VBG Base Excess 1.9 mmol/L 10/02/19 12:40 FiO2 3L 10/02/19 14:30 Chloride 96 mmol/L (98-107) L 10/04/19 07:54 Carbon Dioxide 27 mmol/L (22-30) 10/04/19 07:54 Anion Gap 12 (5-19) 10/04/19 07:54 Est GFR ( Amer) 29 (>60) L 10/04/19 07:54 Glucose 102 mg/dL (75-110) 10/04/19 07:54 Calcium 8.5 mg/dL (8.4-10.2) 10/04/19 07:54 Phosphorus 5.3 mg/dL (2.5-4.5) H 10/03/19 03:45 Magnesium 2.5 mg/dL (1.6-2.3) H 10/03/19 03:45 Total Bilirubin 1.1 mg/dL (0.2-1.3) 10/02/19 12:40 AST 24 U/L (17-59) 10/02/19 12:40 Alkaline Phosphatase 58 U/L (38-126) 10/02/19 12:40 Total Protein 7.6 g/dL (6.3-8.2) 10/02/19 12:40 Albumin 4.0 g/dL (3.5-5.0) 10/02/19 12:40 Urine Color YELLOW 10/02/19 13:57 Urine Appearance CLEAR 10/02/19 13:57 Urine pH 5.0 (5.0-9.0) 10/02/19 13:57 Ur Specific [place] 1.014 10/02/19 13:57 Urine Protein NEGATIVE mg/dL (NEGATIVE) 10/02/19 13:57 Urine Glucose (UA) NEGATIVE mg/dL (NEGATIVE) 10/02/19 13:57 Urine Ketones NEGATIVE mg/dL (NEGATIVE) 10/02/19 13:57 Urine Blood NEGATIVE (NEGATIVE) 10/02/19 13:57 Urine Nitrite NEGATIVE (NEGATIVE) 10/02/19 13:57 Ur Leukocyte Esterase NEGATIVE (NEGATIVE) 10/02/19 13:57 Urine WBC (Auto) 0 /HPF 10/02/19 13:57 Urine RBC (Auto) 1 /HPF 10/02/19 13:57 Blood Type O POSITIVE 10/02/19 12:40 Antibody Screen NEGATIVE 10/02/19 12:40 10/02/19 10/02/19 10/03/19 12:40 18:50 00:33 Troponin I 0.025 0.027 0.025 NT-Pro-B Natriuret Pep 3910 H Current Medication List Generic Name Dose Route Start Last Admin Trade Name Freq PRN Reason Stop Dose Admin Acetaminophen 650 mg 10/02/19 17:06 Tylenol 325 Mg Tablet PO 11/01/19 17:05 Q4HP PRN pain or fever Albuterol 2 puff 10/02/19 22:15 Proair Hfa Inhalation Aerosol 8.5 Gm Mdi IH 11/01/19 22:14 Q4HP PRN SOB Albuterol/Ipratropium 3 ml 10/02/19 17:06 Duoneb 3 Ml Ampul NEB 11/01/19 17:05 RTQ2HP PRN SHORTNESS OF BREATH Amiodarone HCl 200 mg 10/03/19 10:00 10/04/19 09:20 Cordarone 200 Mg Tablet PO 11/02/19 09:59 200 mg DAILY ED Administration Atorvastatin Calcium 40 mg 10/02/19 22:00 10/04/19 22:25 Lipitor 40 Mg Tablet PO 11/01/19 21:59 40 mg QHS ED Administration Dextrose 12.5 gm 10/02/19 20:30 Dextrose Inj 50% Syringe (25 Gm/50 Ml) IV 11/01/19 20:29 PRN PRN FOR BG 50-69 IN ALERT PATIENT Protocol Dextrose 25 gm 10/02/19 20:30 Dextrose Inj 50% Syringe (25 Gm/50 Ml) IV 11/01/19 20:29 PRN PRN PER PROTOCOL Protocol Docusate Sodium 100 mg 10/04/19 10:00 10/04/19 09:19 Colace 100 Mg Capsule PO 11/03/19 09:59 100 mg DAILY ED Administration Fluticasone/Vilanterol 1 inh 10/03/19 10:00 10/04/19 09:20 Breo 200-25 Mcg Ellipta 14 Dose/Dpi IH 11/02/19 09:59 1 inhaler DAILY ED Administration Furosemide 40 mg 10/02/19 22:00 10/04/19 22:31 Lasix Inj/Pf 40 Mg/4 Ml Sdv IV 11/01/19 21:59 40 mg Q12 ED Administration Glucagon 1 mg 10/02/19 20:30 Glucagen Inj 1 Mg Vial IM 11/01/19 20:29 PRN PRN EVALUATE FOR BG < 70 Protocol Glucose 15 gm 10/02/19 20:30 Glutose 40% Gel 15 Gm Tube PO 11/01/19 20:29 PRN PRN FOR BG 50-69 IN ALERT PATIENT Protocol Glucose 30 gm 10/02/19 20:30 Glutose 40% Gel 15 Gm Tube PO 11/01/19 20:29 PRN PRN FOR BG < 50 IN ALERT PATIENT Protocol Clindamycin Phosphate/Dextrose 600 mg in 50 mls @ 50 mls/hr 10/02/19 18:00 10/05/19 02:35 Cleocin Rtu 600 Mg/D5w 50 Ml Premix IV 10/09/19 17:59 Infused Q8A ED Infusion Insulin Human Lispro 0 - 12 unit 10/02/19 22:00 10/04/19 22:20 Humalog Insulin 100 Unit/1 Ml 3 Ml Vial SUBCUT 11/01/19 21:59 Not Given ACHS ED Protocol Levothyroxine Sodium 0.05 mg 10/03/19 06:00 10/05/19 05:29 Synthroid 0.05 Mg Tablet PO 11/02/19 05:59 0.05 mg Q6AM ED Administration Metolazone 5 mg 10/05/19 10:00 Zaroxolyn 5 Mg Tablet PO 11/04/19 09:59 DAILY ED Metoprolol Tartrate 25 mg 10/02/19 22:00 10/04/19 22:25 Lopressor 25 Mg Tablet PO 11/01/19 21:59 25 mg Q12 ED Administration [id number] Ethyl Esters 1 gm 10/02/19 18:45 10/04/19 17:25 Lovaza 1 Gm Capsule PO 11/01/19 18:44 1 gm BID ED Administration Ondansetron HCl 4 mg 10/02/19 17:06 Zofran Odt 4 Mg Tablet PO 11/01/19 17:05 Q4HP PRN FOR NAUSEA/VOMITING Ondansetron HCl 4 mg 10/02/19 17:06 Zofran Inj/Pf 4 Mg/2 Ml Sdv IV 11/01/19 17:05 Q4HP PRN FOR NAUSEA/VOMITING Potassium Chloride 10 meq 10/04/19 18:00 10/04/19 17:28 Klor-Con 10 Meq Tablet Er PO 11/03/19 17:59 10 meq DAILY ED Administration Rivaroxaban 15 mg 10/03/19 10:00 10/04/19 09:20 Xarelto 15 Mg Tablet PO 11/02/19 09:59 15 mg DAILY ED Administration Senna/Docusate Sodium 1 each 10/03/19 17:18 10/03/19 18:30 Senna Plus Tablet PO 11/02/19 17:17 1 each DAILYP PRN Administration UNRESOLVED CONSTIPATION Sodium Chloride 1 spray 10/04/19 16:00 10/04/19 22:25 Platte Nasal [place] 44 Ml Bottle NASL 11/03/19 15:59 1 spray ACHS ED Administration Tamsulosin HCl 0.4 mg 10/03/19 18:00 10/04/19 17:25 Flomax 0.4 Mg Cap.Sr PO 11/02/19 17:59 0.4 mg PCSUPPER ED Administration Tramadol HCl 50 mg 10/02/19 17:10 10/05/19 00:35 Ultram 50 Mg Tablet PO 10/09/19 17:09 50 mg TIDP PRN Administration FOR PAIN Discontinued Medications Generic Name Dose Route Start Last Admin Trade Name Wilbertq PRN Reason Stop Dose Admin Docusate Sodium 100 mg 10/02/19 18:00 10/02/19 18:44 Colace 100 Mg Capsule PO 11/01/19 17:59 100 mg Q2D ED Administration Furosemide 40 mg 10/02/19 13:22 10/02/19 13:47 Lasix Inj/Pf 20 Mg/2 Ml Sdv IV 10/02/19 13:23 40 mg NOW ONE Administration Furosemide 10 mg 10/03/19 17:16 Lasix Inj/Pf 20 Mg/2 Ml Sdv IV 10/04/19 17:15 .AFTER FIRST UNIT PRN THIS MED IS NOT "PRN" Sodium Chloride 250 mls @ 30 mls/hr 10/03/19 17:10 Nacl 0.9% 250 Ml Iv Soln IV 10/04/19 17:09 .DURING TRANSFUSION PRN THIS MED IS NOT "PRN" Sodium Chloride 250 mls @ 0 mls/hr 10/03/19 17:10 Nacl 0.9% 250 Ml Iv Soln IV 10/04/19 17:09 CONTINUOUS PRN AFTER EACH UNIT As Directed Nitroglycerin 1 gm 10/02/19 13:23 10/02/19 13:45 Nitrol 2% Ointment 1gm Packet TP 10/02/19 13:24 1 gm NOW ONE Administration Potassium Chloride 20 meq 10/02/19 13:39 10/02/19 13:48 Potassium Chloride 20 Meq Packet PO 10/02/19 13:40 20 meq NOW ONE Administration Assessment & Plan - Diagnosis (1) Diastolic CHF, acute on chronic Is this a current diagnosis for this admission?: Yes Plan: The patient continues to be fluid overloaded and actually this morning appears to be slightly worse than yesterday. He continues to have crackles at both bases, lower extremity edema and positive fluid balance. His metolazone was only given once however he should be given 30 minutes prior to every IV Lasix dose. The patient is optimized from a cardiovascular standpoint but needs further diuresis and, given his renal dysfunction and that the nephrology team is now following I will sign off the case for now and will defer further fluid management to them. Recommendations: -Give metolazone 5 mg p.o. 30 minutes prior to every Lasix dose. -Consider adding afterload reduction as tolerated by blood pressure and renal dysfunction, will defer to nephrology team. -Restrict fluid intake to 1500 cc daily. -Low sodium diet, less than 1500 mg daily. -Strict intake and output. -Daily weights. -Daily BMP and magnesium. -BNP today. -Replace electrolytes as needed. -I will sign off the case for now, please reconsult if clinically indicated. (2) Acute renal failure superimposed on chronic kidney disease Qualifiers: Acute renal failure type: unspecified Chronic kidney disease stage: stage 3 (moderate) Qualified Code(s): N17.9 - Acute kidney failure, unspecified; N18.3 - Chronic kidney disease, stage 3 (moderate) Is this a current diagnosis for this admission?: Yes Plan: Nephrology team now following. Recommendations: -Further management per nephrology and hospitalist teams. (3) Chronic atrial fibrillation Is this a current diagnosis for this admission?: Yes Plan: He is rate controlled and anticoagulated with Xarelto. Unfortunately his hemoglobin continues to drop and the patient admitted this morning to me that 1 month ago he had at least one episode of melena. His telemetry shows frequent episodes of RVR likely from his fluid overload. Recommendations: -Temporarily stop Xarelto until GI work-up completed. -Continue with diuresis and optimize beta-reg to achieve better rate control once he is got fluid overloaded. (4) HTN (hypertension) Qualifiers: Hypertension type: essential hypertension Qualified Code(s): I10 - Essential (primary) hypertension Is this a current diagnosis for this admission?: Yes Plan: His BP is at goal. Will continue to monitor. (5) Anemia Qualifiers: Anemia type: unspecified type Qualified Code(s): D64.9 - Anemia, unspecified Is this a current diagnosis for this admission?: Yes Plan: His hemoglobin is up to 8.8 this morning after receiving 2 units of blood. He admitted this morning to having at least one episode of melena approximately 1 year ago. Recommendations: -Anemia work up per hospitalist service.
[2019-10-05] MEDS ORDERED: METOLAZONE 5 MG TABLET PO SCH (10:00)
[2019-10-05] MEDS: FUROSEMIDE INJ/PF 40 MG/4 ML SDV IV SCH ×2 (10:16→17:10)
[2019-10-05] MEDS: FLUTICASONE/VILANTEROL 200-25 MCG/DOSE IH SCH (10:16)
[2019-10-05] MEDS: AMIODARONE HCL 200 MG TABLET PO SCH (10:17)
[2019-10-05] MEDS: OMEGA-3 ACID ETHYL ESTERS 1 GM CAPSULE PO SCH ×2 (10:17→17:10)
[2019-10-05] MEDS: RIVAROXABAN 15 MG TABLET PO SCH (10:17)
[2019-10-05] MEDS: DOCUSATE SODIUM 100 MG CAPSULE PO SCH (10:17)
[2019-10-05] MEDS: POTASSIUM CHLORIDE 10 MEQ TABLET.ER PO SCH (10:17)
[2019-10-05] MEDS: METOPROLOL TARTRATE 25 MG TABLET PO SCH ×2 (10:17→21:22)
[2019-10-05] MEDS: INSULIN LISPRO 100 UNIT/ML 3 ML VIAL SUBCUT SCH ×4 (10:18→21:18)
--- NOTE | 2019-10-05 14:08 | PDOC PROGRESS REPORT ---
Subjective Progress Note for:: 10/05/19 Subjective:: The patient is being seen by nephrology. They are making adjustments in the fluid per the patient. I will review the note. I do not believe the patient will be able to discharge today. Reason For Visit: ACUTE DIASTOLIC CHF EXACERBATION,ACUTE ON CHRONIC Physical Exam Vital Signs: Temp Pulse Resp BP Pulse Ox 98.1 F 81 20 127/61 H 92 10/05/19 11:43 10/05/19 11:43 10/05/19 11:43 10/05/19 11:43 10/05/19 11:43 Intake & Output 10/04/19 10/05/19 10/06/19 06:59 06:59 06:59 Intake Total 2928 2355 Output Total 475 2000 Balance 2453 355 Weight 123.2 kg 120.2 kg General appearance: PRESENT: no acute distress, cooperative, well-developed, other - Remains on nasal cannula Head exam: PRESENT: atraumatic, normocephalic Eye exam: PRESENT: conjunctiva pale. ABSENT: scleral icterus Ear exam: PRESENT: normal external ear exam. ABSENT: bleeding, drainage Respiratory exam: PRESENT: clear to auscultation varsha, symmetrical, unlabored. ABSENT: rales, rhonchi, tachypnea, wheezes Cardiovascular exam: PRESENT: RRR, +S1, +S2, systolic murmur. ABSENT: bradycardia, diastolic murmur, irregular rhythm, tachycardia GI/Abdominal exam: PRESENT: normal bowel sounds, soft. ABSENT: distended, tenderness Rectal exam: PRESENT: deferred Gentrourinary exam: ABSENT: indwelling catheter Extremities exam: PRESENT: pedal edema, +1 edema Musculoskeletal exam: PRESENT: ambulatory, normal inspection. ABSENT: deformity, dislocation Neurological exam: PRESENT: alert, awake, oriented to person, oriented to place, oriented to time, oriented to situation, CN II-XII grossly intact. ABSENT: altered Psychiatric exam: PRESENT: anxious - Was hoping to go home to deal with issues currently going on.. ABSENT: agitated Focused psych exam: ABSENT: delusional, paranoid, restlessness Skin exam: PRESENT: dry, pallor, warm. ABSENT: rash Results Laboratory Results: 10/05/19 06:16 10/05/19 06:16 10/05/19 10/05/19 10/05/19 06:16 06:16 06:16 WBC 8.8 RBC 3.42 L Hgb 8.3 L Hct 25.9 L MCV 76 L MCH 24.2 L MCHC 32.0 RDW 18.5 H Plt Count 326 Seg Neutrophils % 72.7 Sodium 136.3 L Potassium 3.5 L Chloride 99 Carbon Dioxide 26 Anion Gap 11 BUN 46 H Creatinine 2.50 H Est GFR ( Amer) 31 L Glucose 104 Calcium 8.3 L Phosphorus 4.6 H Magnesium 2.6 H Albumin 3.6 TSH 2.78 Free T4 1.67 Free T3 pg/mL 2.43 L 10/02/19 10/02/19 10/03/19 12:40 18:50 00:33 Troponin I 0.025 0.027 0.025 NT-Pro-B Natriuret Pep 3910 H Impressions: Chest X-Ray 10/02/19 12:30 IMPRESSION: DIFFUSE AIRSPACE DISEASE, RIGHT GREATER THAN LEFT, CONSISTENT WITH PNEUMONIA. Scrotum Ultrasound 10/02/19 12:30 IMPRESSION: DIFFUSE SCROTAL WALL THICKENING. OTHERWISE UNREMARKABLE SCROTAL ULTRASOUND. NO EVIDENCE OF TESTICULAR MASS OR TORSION. Renal Ultrasound 10/04/19 00:00 IMPRESSION: Mild cortical thinning bilaterally. Horseshoe kidney by history. No stones. No hydronephrosis. No bladder mass. Assessment and Plan - Diagnosis (1) Diastolic CHF, acute on chronic Is this a current diagnosis for this admission?: Yes Plan: Appreciate nephrology input. Furosemide will be increased. It will not be 40 mg IV 3 times a day. He will still receive metolazone before the first dose of furosemide. He should be having daily weights and will encourage strict I's and O's. (2) Acute on chronic respiratory failure with hypoxemia Is this a current diagnosis for this admission?: Yes Plan: Ongoing diuresis we can hopefully wean him on his oxygen however I believe he will need chronic oxygen therapy as an outpatient. (3) Acute kidney injury superimposed on CKD Is this a current diagnosis for this admission?: Yes Plan: Appreciate nephrology input. Please see Dr. Harding's note. Continue to monitor renal function. (4) Skin ulcer of scrotum Is this a current diagnosis for this admission?: Yes Plan: Continue clindamycin (5) Longstanding persistent atrial fibrillation Is this a current diagnosis for this admission?: Yes Plan: Stable on current regimen. Continue to monitor by telemetry. (6) HTN (hypertension) Qualifiers: Hypertension type: essential hypertension Qualified Code(s): I10 - Essential (primary) hypertension Is this a current diagnosis for this admission?: Yes Plan: He occasionally exhibits low blood pressure however the majority of his numbers are in a reasonable range. We will need to monitor blood pressure with the increase in the dose of furosemide. (7) Hypokalemia Is this a current diagnosis for this admission?: Yes Plan: Increase potassium supplement and continue to monitor with blood work. (8) Hyperglycemia due to diabetes mellitus Is this a current diagnosis for this admission?: Yes Plan: Continue current regimen including Accu-Cheks and sliding scale coverage (9) Chronic anticoagulation Is this a current diagnosis for this admission?: Yes Plan: Medication changed to Eliquis 2.5 mg twice daily in light of current renal function (10) HLD (hyperlipidemia) Qualifiers: Hyperlipidemia type: unspecified Qualified Code(s): E78.5 - Hyperlipidemia, unspecified Is this a current diagnosis for this admission?: Yes Plan: Continue statin therapy. Lipid panel as an outpatient. (11) COPD (chronic obstructive pulmonary disease) Qualifiers: COPD type: unspecified COPD Qualified Code(s): J44.9 - Chronic obstructive pulmonary disease, unspecified Is this a current diagnosis for this admission?: Yes Plan: I believe the respiratory failure is more driven by the heart failure and volume status with his kidney failure. We will continue current regimen for COPD so as to remain stable (12) Anemia Qualifiers: Anemia type: unspecified type Qualified Code(s): D64.9 - Anemia, unspecified Is this a current diagnosis for this admission?: Yes Plan: Iron studies ordered for the weekend (13) Hypothyroidism Qualifiers: Hypothyroidism type: unspecified Qualified Code(s): E03.9 - Hypothyroidism, unspecified Is this a current diagnosis for this admission?: Yes Plan: Continue levothyroxine - Time Time Spent with patient: 15-24 minutes Medications reviewed and adjusted accordingly: Yes Anticipated Discharge Disposition: Home with Home Health Anticipated Discharge Timeframe: within 72 hours
--- NOTE | 2019-10-05 15:02 | PDOC PROGRESS REPORT ---
Subjective Progress Note for:: 10/05/19 Reason For Visit: Patient seen today. He is sitting upright and having difficulty to breathe as he is still quite short of breath. His JVD is elevated at 90 degrees. He denies any chest pains. He thinks his breathing is some better than when he came in and so too he thinks about his pedal edema. Labs and medications were reviewed. Echocardiogram done earlier this month was reviewed which shows close to normal LV function with mild pulmonary hypertension. No critical valvular stenosis or leaks. I am not sure if we are keeping a strict I's and O's. Physical Exam Vital Signs: Temp Pulse Resp BP Pulse Ox 98.1 F 81 20 127/61 H 92 10/05/19 11:43 10/05/19 11:43 10/05/19 11:43 10/05/19 11:43 10/05/19 11:43 Intake & Output 10/04/19 10/05/19 10/06/19 06:59 06:59 06:59 Intake Total 2928 2355 1267 Output Total 475 2000 380 Balance 2453 355 887 Weight 123.2 kg 120.2 kg General appearance: PRESENT: mild distress Respiratory exam: PRESENT: clear to auscultation varsha, decreased breath sounds. ABSENT: crackles Cardiovascular exam: PRESENT: +S1, +S2 GI/Abdominal exam: PRESENT: normal bowel sounds, soft. ABSENT: organomegaly, tenderness Extremities exam: PRESENT: +1 edema Neurological exam: PRESENT: alert, awake, oriented to person, oriented to place Skin exam: ABSENT: erythema, mottled, rash Results Laboratory Results: 10/05/19 06:16 10/05/19 06:16 10/05/19 10/05/19 10/05/19 06:16 06:16 06:16 WBC 8.8 RBC 3.42 L Hgb 8.3 L Hct 25.9 L MCV 76 L MCH 24.2 L MCHC 32.0 RDW 18.5 H Plt Count 326 Seg Neutrophils % 72.7 Sodium 136.3 L Potassium 3.5 L Chloride 99 Carbon Dioxide 26 Anion Gap 11 BUN 46 H Creatinine 2.50 H Est GFR ( Amer) 31 L Glucose 104 Calcium 8.3 L Phosphorus 4.6 H Magnesium 2.6 H Albumin 3.6 TSH 2.78 Free T4 1.67 Free T3 pg/mL 2.43 L 10/02/19 10/02/19 10/03/19 12:40 18:50 00:33 Troponin I 0.025 0.027 0.025 NT-Pro-B Natriuret Pep 3910 H Impressions: Chest X-Ray 10/02/19 12:30 IMPRESSION: DIFFUSE AIRSPACE DISEASE, RIGHT GREATER THAN LEFT, CONSISTENT WITH PNEUMONIA. Scrotum Ultrasound 10/02/19 12:30 IMPRESSION: DIFFUSE SCROTAL WALL THICKENING. OTHERWISE UNREMARKABLE SCROTAL U LTRASOUND. NO EVIDENCE OF TESTICULAR MASS OR TORSION. Renal Ultrasound 10/04/19 00:00 IMPRESSION: Mild cortical thinning bilaterally. Horseshoe kidney by history. No stones. No hydronephrosis. No bladder mass. Assessment & Plan - Diagnosis (1) Acute kidney injury superimposed on CKD Is this a current diagnosis for this admission?: Yes Plan: Nonoliguric. Ideally it would have been good if he were to keep strict I's and O's as the other option would be to put [place] catheter which I am not very eager to do that. Patient is still decompensated and am going to increase his IV Lasix. Electrolytes otherwise stable. No indications for renal replacements. (2) Acute on chronic respiratory failure with hypoxemia Is this a current diagnosis for this admission?: Yes Plan: See how he responds to increasing diuretics. Monitor closely with strict I's and O's. (3) Anemia Qualifiers: Anemia type: unspecified type Qualified Code(s): D64.9 - Anemia, unspecified Is this a current diagnosis for this admission?: Yes Plan: Apparently was transfused couple of days ago and current hemoglobin was 8.8 yesterday and today is down to 8.3. Patient is on Xarelto which I would recommend to be changed to Eliquis 2.5 twice daily given his current renal status Monitor for GI bleed. He may need an upper GI work-up since he is on anticoagulation.I would check his iron studies next week and see if he would need to be given any IV iron infusions. (4) Chronic atrial fibrillation Is this a current diagnosis for this admission?: Yes Plan: Patient is currently on Xarelto for his paroxysmal atrial fibrillation. I would recommend changing that to Eliquis 2.5 twice daily given his current renal par ameters. I would recommend this especially because of his dropping hemoglobin even post transfusions. (5) Diastolic CHF, acute on chronic Is this a current diagnosis for this admission?: Yes Plan: Presently decompensated. See how he responds to increased dosing of diuretics. (6) HTN (hypertension) Qualifiers: Hypertension type: essential hypertension Qualified Code(s): I10 - Essential (primary) hypertension Is this a current diagnosis for this admission?: Yes Plan: Presently controlled. Monitor. (7) T2DM (type 2 diabetes mellitus) Qualifiers: Diabetes mellitus exterminator termite insulin use: without [facility] use Diabetes mellitus complication status: with kidney complications Diabetes mellitus complication detail: with chronic kidney disease Chronic kidney disease stage: stage 3 (moderate) Qualified Code(s): E11.22 - Type 2 diabetes mellitus with diabetic chronic kidney disease; N18.3 - Chronic kidney disease, stage 3 (moderate) Is this a current diagnosis for this admission?: Yes Plan: As per hospitalist. (8) Skin ulcer of scrotum Is this a current diagnosis for this admission?: Yes Plan: On Clindamycin.
[2019-10-05] MEDS: TAMSULOSIN HCL 0.4 MG CAP.SR.24H PO SCH (17:11)
[2019-10-05] MEDS: APIXABAN 2.5 MG TABLET PO SCH (17:11)
[2019-10-05] MEDS: ATORVASTATIN CALCIUM 40 MG TABLET PO SCH (21:22)
[2019-10-05] MEDS ORDERED: TEMAZEPAM 7.5 MG CAPSULE PO SCH (22:00)
[2019-10-06] MEDS: CLINDAMYCIN 600 MG/D5W RTU 600 MG/50 ML RTUPB IV SCH ×2 (01:43→09:13)
[2019-10-06] MEDS: FUROSEMIDE INJ/PF 40 MG/4 ML SDV IV SCH ×2 (01:44→09:10)
[2019-10-06] MEDS: LEVOTHYROXINE SODIUM 0.05 MG TABLET PO SCH (05:26)
[2019-10-06 06:59] LABS: ANION GAP 12 (5-19); BLOOD UREA NITROGEN 50 mg/dL (7-20); CALCIUM 8.4 mg/dL (8.4-10.2); CARBON DIOXIDE 28 mmol/L (22-30); CHLORIDE 95 mmol/L (98-107); GLUCOSE 96 mg/dL (75-110); POTASSIUM 3.1 mmol/L (3.6-5.0)
[2019-10-06] MEDS: INSULIN LISPRO 100 UNIT/ML 3 ML VIAL SUBCUT SCH ×3 (08:11→17:11)
[2019-10-06] MEDS: FLUTICASONE/VILANTEROL 200-25 MCG/DOSE IH SCH (09:10)
[2019-10-06] MEDS: OMEGA-3 ACID ETHYL ESTERS 1 GM CAPSULE PO SCH (09:11)
[2019-10-06] MEDS: DOCUSATE SODIUM 100 MG CAPSULE PO SCH (09:12)
[2019-10-06] MEDS: METOPROLOL TARTRATE 25 MG TABLET PO SCH (09:12)
[2019-10-06] MEDS: APIXABAN 2.5 MG TABLET PO SCH (09:12)
[2019-10-06] MEDS: AMIODARONE HCL 200 MG TABLET PO SCH (09:12)
[2019-10-06] MEDS: SODIUM CHLORIDE NASAL SPRAY 44 ML NASL SCH ×2 (09:13→11:02)
[2019-10-06] MEDS ORDERED: METOLAZONE 5 MG TABLET PO SCH (09:30)
[2019-10-06] MEDS ORDERED: POTASSIUM CHLORIDE 10 MEQ TABLET.ER PO SCH (10:00)
[2019-10-06] MEDS ORDERED: PANTOPRAZOLE SODIUM 40 MG TABLET.DR PO SCH (11:00)
[2019-10-06] MEDS ORDERED: POTASSIUM CHLORIDE 10 MEQ TABLET.ER PO ONE (11:00)
[2019-10-06] MEDS: POTASSIUM CHLORIDE 20 MEQ/50 ML RTU IV SCH ×3 (11:02→14:47)
[2019-10-06] MEDS ORDERED: SUCRALFATE 1 GM TABLET PO SCH (14:00)
--- NOTE | 2019-10-06 14:18 | PDOC PROGRESS REPORT ---
Subjective Progress Note for:: 10/06/19 Subjective:: Patient states that his breathing feels better and he would like to go home. He still notably quite hypoxic and requiring 5 L nasal cannula. He tells me that when he was in [place], he was told that they were going to try to qualify him for oxygen. [facility] however tells me that [facility]. States he does not have oxygen at home. I have explained to him that we will try to diurese him further to see if we can reduce his oxygen requirements. He also admits to melena 1 month ago. His last colonoscopy was several years ago. Reason For Visit: ACUTE DIASTOLIC CHF EXACERBATION,ACUTE ON CHRONIC Physical Exam Vital Signs: Temp Pulse Resp BP Pulse Ox 97.6 F 86 16 113/77 93 10/06/19 11:10 10/06/19 11:10 10/06/19 11:10 10/06/19 11:10 10/06/19 11:10 Intake & Output 10/05/19 10/06/19 10/07/19 06:59 06:59 06:59 Intake Total 2355 1959 100 Output Total 1999 4030 1500 Balance 373 -0108 -1400 Weight 120.2 kg General appearance: PRESENT: no acute distress, cooperative Neck exam: ABSENT: JVD Respiratory exam: PRESENT: crackles, symmetrical, unlabored. ABSENT: tachypnea, wheezes Cardiovascular exam: PRESENT: RRR, +S1, +S2. ABSENT: tachycardia GI/Abdominal exam: PRESENT: soft. ABSENT: rebound, rigid, tenderness Extremities exam: PRESENT: pedal edema Neurological exam: PRESENT: alert, awake, oriented to person, oriented to place, oriented to time Results Laboratory Results: 10/05/19 06:16 10/06/19 05:58 10/06/19 05:58 Sodium 135.2 L Potassium 3.1 L Chloride 95 L Carbon Dioxide 28 Anion Gap 12 BUN 50 H Creatinine 2.38 H Est GFR ( Amer) 32 L Glucose 96 Calcium 8.4 10/02/19 10/02/19 10/03/19 12:40 18:50 00:33 Troponin I 0.025 0.027 0.025 NT-Pro-B Natriuret Pep 3910 H Impressions: Chest X-Ray 10/02/19 12:30 IMPRESSION: DIFFUSE AIRSPACE DISEASE, RIGHT GREATER THAN LEFT, CONSISTENT WITH PNEUMONIA. Scrotum Ultrasound 10/02/19 12:30 IMPRESSION: DIFFUSE SCROTAL WALL THICKENING. OTHERWISE UNREMARKABLE SCROTAL ULTRASOUND. NO EVIDENCE OF TESTICULAR MASS OR TORSION. Renal Ultrasound 10/04/19 00:00 IMPRESSION: Mild cortical thinning bilaterally. Horseshoe kidney by history. No stones. No hydronephrosis. No bladder mass. Assessment and Plan - Diagnosis (1) Diastolic CHF, acute on chronic Is this a current diagnosis for this admission?: Yes Plan: TTE showing EF 55 to 60%. Diastolic he was not toxic assessable but does have moderate concentric LVH. Continue 40 mg IV Lasix 3 times a day. Diuresed well yesterday. We will give Zaroxolyn before 10 AM dose daily. Continue monitoring strict I's and O's. Fluid restriction. (2) Acute on chronic respiratory failure with hypoxemia Is this a current diagnosis for this admission?: Yes Plan: Still requiring 5 L nasal cannula. Hopefully we can wean with further diuresis. I do suspect as well that he will still need some oxygen therapy at home but we will see if we are able to reduce his oxygen requirements with IV diuresis. (3) Acute kidney injury superimposed on CKD Is this a current diagnosis for this admission?: Yes Plan: Nephrology following. Creatinine is improving at this point. Avoid nephrotoxic medications. Continue to monitor BMP with diuresis. (4) Iron deficiency anemia due to chronic blood loss Is this a current diagnosis for this admission?: Yes Plan: Iron studies, done on last admission earlier in September, consistent with severe iron deficiency anemia. He endorses episodes of melena 1 month ago and a history of peptic ulcer. He states his last colonoscopy was several years ago. He received 2 units of blood transfusion earlier in admission. Start Protonix and Carafate. He will need endoscopic evaluation only once we have dried him out more in terms of his heart failure and hypoxemia, especially if his hemoglobin continues to drop. We will preemptively perform COVID-19 preop screen (5) COPD (chronic obstructive pulmonary disease) Qualifiers: COPD type: unspecified COPD Qualified Code(s): J44.9 - Chronic obstructive pulmonary disease, unspecified Is this a current diagnosis for this admission?: Yes Plan: I believe the respiratory failure is more driven by the heart failure and volume status with his kidney failure. We will continue current regimen for COPD so as to remain stable (6) Hypokalemia Is this a current diagnosis for this admission?: Yes Plan: Increase daily oral potassium supplements. Will give some IV KCl today. Continue to monitor BMP. (7) Longstanding persistent atrial fibrillation Is this a current diagnosis for this admission?: Yes Plan: Stable on current regimen. Continue to monitor by telemetry. (8) Skin ulcer of scrotum Is this a current diagnosis for this admission?: Yes Plan: Continue clindamycin - Time Time Spent with patient: 15-24 minutes Anticipated Discharge Disposition: Home, Self Care Anticipated Discharge Timeframe: within 72 hours
[2019-10-06 16:24] VITALS: BP 109/71
--- NOTE | 2019-10-06 19:05 | Left Against Medical Advice ---
Against Medical Advice Admission Date/Time: 10/02/19 14:30 Primary Care Provider: Date of Patient Emigration: 10/06/19 - Diagnosis: (1) Diastolic CHF, acute on chronic Is this a current diagnosis for this admission?: Yes (2) Acute on chronic respiratory failure with hypoxemia Is this a current diagnosis for this admission?: Yes (3) Acute kidney injury superimposed on CKD Is this a current diagnosis for this admission?: Yes (4) Iron deficiency anemia due to chronic blood loss Is this a current diagnosis for this admission?: Yes (5) COPD (chronic obstructive pulmonary disease) Is this a current diagnosis for this admission?: Yes (6) Hypokalemia Is this a current diagnosis for this admission?: Yes (7) Longstanding persistent atrial fibrillation Is this a current diagnosis for this admission?: Yes (8) Skin ulcer of scrotum Is this a current diagnosis for this admission?: Yes - Summary: Summary: Please see Admission and Progress Notes as well. FIDENCIO BARRIOS is a 78 M, who LEFT AGAINST MEDICAL ADVICE. The Patient was admitted on 10/02/19 14:30. Patient unfortunately was not listening to reason today. He states he wanted to go home to deal with a family issue. I explained to him that his degree of hypoxia was still significantly severe as he was still requiring 5 L of nasal cannula. I explained to him that we need to dry him out first in terms of his heart failure to see how much oxygen he would still need and if he still needed oxygen at that point we will try to qualify him for oxygen but that it would not be adequate to send him home when he is still sounding wet and requiring 5 L nasal cannula. Patient was completely adamant and refused to listen. I explained all the risks including possibility of from hypoxia. He still insistent and signed out AMA.
[2019-10-07] MEDS ORDERED: POTASSIUM CHLORIDE 10 MEQ TABLET.ER PO SCH (10:00)
== END 2019-10-06 17:50 | disposition left against medical advice (07) | DRG 291 ==
LOC: ER 12:17 → EH 14:30 → 3W 18:01
PROVIDERS: ADMIT Internal Medicine; ATTEND Hospitalist
PROC: 30233N1 Transfusion of Nonautologous Red Blood Cells into Peripheral Vein, Percutaneous Approach (ICD-10-PCS; principal; 2019-10-03)
DX: I13.0 Hypertensive heart and chronic kidney disease with heart failure and stage 1 through stage 4 chronic kidney disease, or unspecified chronic kidney disease (principal); I50.33 Acute on chronic diastolic (congestive) heart failure; J96.21 Acute and chronic respiratory failure with hypoxia; N17.9 Acute kidney failure, unspecified; I48.11 Longstanding persistent atrial fibrillation; N50.89 Other specified disorders of the male genital organs; J44.9 Chronic obstructive pulmonary disease, unspecified; E87.6 Hypokalemia; D64.9 Anemia, unspecified; D50.0 Iron deficiency anemia secondary to blood loss (chronic); N18.3 Chronic kidney disease, stage 3 (moderate); E03.9 Hypothyroidism, unspecified; E11.22 Type 2 diabetes mellitus with diabetic chronic kidney disease; Z79.01 Long term (current) use of anticoagulants; Z79.891 Long term (current) use of opiate analgesic; Z79.51 Long term (current) use of inhaled steroids; Z79.899 Other long term (current) drug therapy
CPT/HCPCS: 36415; 36430; 36600; 71046; 76775; 76870; 80048; 80053; 80069; 81001; 82270; 82803; 82962; 83036; 83735; 83880; 84100; 84439; 84443; 84481; 84484; 85025; 86850; 86900; 86901; 86920; 87040; 93005; 93010; 93976; J1940; J3480; J3490; P9016

== ENCOUNTER → 2019-10-19 | Outpatient (CLI) | payer OTHER, MEDICARE ==
[2019-10-19 12:11] LABS: HEMATOCRIT 29.1 % (37.9-51.0); HEMOGLOBIN 9.3 g/dL (13.5-17.0); MEAN CORPUSCULAR HEMOGLOBIN 23.9 pg (27.0-33.4); MEAN CORPUSCULAR HGB CONC 31.9 g/dL (32.0-36.0); MEAN CORPUSCULAR VOLUME 75 fl (80-97); PLATELET COUNT 407 10^3/uL (150-450); RED BLOOD COUNT 3.89 10^6/uL (4.35-5.55); RED CELL DISTRIBUTION WIDTH 18.9 % (11.5-14.0); WHITE BLOOD COUNT 7.6 10^3/uL (4.0-10.5)
[2019-10-19 12:35] LABS: APPEARANCE,URINE CLEAR; BILIRUBIN,URINE NEGATIVE (NEGATIVE); COLOR,URINE YELLOW; GLUCOSE, URINE NEGATIVE (NEGATIVE); KETONES,URINE NEGATIVE (NEGATIVE); LEUKOCYTE ESTERASE,URINE NEGATIVE (NEGATIVE); NITRITE,URINE NEGATIVE (NEGATIVE); PROTEIN,URINE NEGATIVE (NEGATIVE); URINE SPECIFIC GRAVITY 1.011; UROBILINOGEN,URINE NEGATIVE mg/dL (<2.0)
[2019-10-19 12:38] LABS: ALBUMIN 3.8 g/dL (3.5-5.0); ANION GAP 11 (5-19); BLOOD UREA NITROGEN 44 mg/dL (7-20); CALCIUM 8.5 mg/dL (8.4-10.2); CARBON DIOXIDE 30 mmol/L (22-30); CHLORIDE 97 mmol/L (98-107); GLUCOSE 105 mg/dL (75-110); PHOSPHORUS 3.4 mg/dL (2.5-4.5); POTASSIUM 3.6 mmol/L (3.6-5.0)
[2019-10-19 13:23] LABS: UR PRO/CREAT RATIO RESULT 0.3 mg/mg (0.0-0.2); URINE CREATININE 68.1 mg/dL (22-328); URINE PROTEIN 18.7 mg/dL (<12)
[2019-10-19 15:50] LABS: IRON(TIBC) 16.2 ug/dL (49-181)
== END ==
LOC: OD 11:43
PROVIDERS: ATTEND Physician Assistant Medical
DX: N18.3 Chronic kidney disease, stage 3 (moderate) (principal); D63.1 Anemia in chronic kidney disease; N25.0 Renal osteodystrophy; R80.1 Persistent proteinuria, unspecified
CPT/HCPCS: 36415; 80069; 81001; 82570; 82728; 83540; 83550; 83970; 84156; 85027

== ENCOUNTER → 2019-11-29 | Outpatient (CLI) | payer MEDICARE, OTHER ==
[2019-11-29 13:03] LABS: HEMATOCRIT 28.7 % (37.9-51.0); HEMOGLOBIN 9.1 g/dL (13.5-17.0); MEAN CORPUSCULAR HEMOGLOBIN 22.1 pg (27.0-33.4); MEAN CORPUSCULAR HGB CONC 31.6 g/dL (32.0-36.0); MEAN CORPUSCULAR VOLUME 70 fl (80-97); PLATELET COUNT 339 10^3/uL (150-450); RED BLOOD COUNT 4.11 10^6/uL (4.35-5.55); RED CELL DISTRIBUTION WIDTH 19.6 % (11.5-14.0); WHITE BLOOD COUNT 8.1 10^3/uL (4.0-10.5)
[2019-11-29 13:17] LABS: ALBUMIN 4.2 g/dL (3.5-5.0); ANION GAP 11 (5-19); BLOOD UREA NITROGEN 36 mg/dL (7-20); CALCIUM 9.2 mg/dL (8.4-10.2); CARBON DIOXIDE 28 mmol/L (22-30); CHLORIDE 98 mmol/L (98-107); GLUCOSE 106 mg/dL (75-110); POTASSIUM 3.7 mmol/L (3.6-5.0)
[2019-11-29 13:24] LABS: APPEARANCE,URINE CLEAR; BILIRUBIN,URINE NEGATIVE (NEGATIVE); COLOR,URINE YELLOW; GLUCOSE, URINE NEGATIVE (NEGATIVE); KETONES,URINE NEGATIVE (NEGATIVE); LEUKOCYTE ESTERASE,URINE NEGATIVE (NEGATIVE); NITRITE,URINE NEGATIVE (NEGATIVE); PROTEIN,URINE NEGATIVE (NEGATIVE); URINE SPECIFIC GRAVITY 1.012; UROBILINOGEN,URINE NEGATIVE mg/dL (<2.0)
[2019-11-29 14:45] LABS: UR PRO/CREAT RATIO RESULT 0.2 mg/mg (0.0-0.2); URINE CREATININE 97.2 mg/dL (22-328); URINE PROTEIN 17.7 mg/dL (<12)
== END ==
LOC: OD 12:28
PROVIDERS: ATTEND Physician Assistant Medical
DX: D64.9 Anemia, unspecified (principal); R80.1 Persistent proteinuria, unspecified; N18.30 Chronic kidney disease, stage 3 unspecified; N25.0 Renal osteodystrophy
CPT/HCPCS: 36415; 80069; 81001; 82570; 83970; 84156; 85027

== ENCOUNTER 2019-12-11 08:03 | Outpatient (CLI) | payer OTHER ==
[~2019-12-11 08:03] MED LIST: FERRIC CARBOXYMALTOSE 750 MG in NORMAL SALINE 100 ML IV PRN
[2019-12-11 08:44] VITALS: BP 121/47
== END 2019-12-11 09:20 | disposition home or self-care (01) ==
LOC: II 08:03 → 5TH 08:04 → II 09:20
PROVIDERS: ATTEND Physician Assistant Medical
DX: D50.9 Iron deficiency anemia, unspecified (principal)
CPT/HCPCS: 96365; J7050; J1439

== ENCOUNTER 2019-12-18 08:03 | Outpatient (CLI) | payer OTHER ==
[2019-12-18] MEDS ORDERED: FERRIC CARBOXYMALTOSE 750 MG in NORMAL SALINE 100 ML IV PRN (08:11)
[2019-12-18 08:50] VITALS: BP 113/54
== END 2019-12-18 09:00 | disposition home or self-care (01) ==
LOC: II 08:03 → 5TH 08:06 → II 09:00
PROVIDERS: ATTEND Physician Assistant Medical
DX: D50.8 Other iron deficiency anemias (principal)
CPT/HCPCS: 96365; J7050; J1439

== ENCOUNTER 2020-01-08 08:17 | Day surgery (SDC) | payer OTHER ==
[~2020-01-08 08:17] MED LIST changes: +BUPIVACAINE HCL 0.75% INJ/PF (7.5 MG/1 ML) 10 ML SDV OS PRN; +CHONDR SU A NA/HYALUR INTRAOC KIT (SURGICARE) ONE; +EPINEPHRINE INJ/PF 1 MG/1 ML AMPULE ONE; +FENTANYL CITRATE INJ/PF 100 MCG/2 ML AMPUL ONE; -FERRIC CARBOXYMALTOSE 750 MG in NORMAL SALINE 100 ML IV PRN; +KETOROLAC TROMETHAMINE 0.45% 4 DROP/0.4 ML DROPERETTE OS PRN; +LIDOCAINE 1%/PHENYLEPHRINE 1.5% 1 ML VIAL ONE; +LIDOCAINE 4% INJ/PF (40 MG/ML) 5 ML AMPUL OS PRN; +MIDAZOLAM 2 MG/2 ML INJ ONE; +ONDANSETRON HCL INJ/PF 4 MG/2 ML SDV ONE
[2020-01-08] MEDS: TETRACAINE HCL 0.5% OPH SOLN 4 ML OS PRN ×3 (08:29→09:13)
[2020-01-08] MEDS: CYCLOPENTOLATE 0.2%/PHENYLEPHRINE 1% OPH SOLN 2 ML OS PRN ×3 (08:30→09:02)
[2020-01-08] MEDS: TROPICAMIDE 1% OPH SOLN 15 ML OS PRN ×3 (08:30→09:02)
[2020-01-08] MEDS: BESIFLOXACIN HCL 0.6% OPH SUSP 5 ML BOTTLE OS PRN ×4 (08:30→09:41)
[2020-01-08] MEDS ORDERED: FENTANYL CITRATE INJ/PF 100 MCG/2 ML AMPUL ONE (09:20)
[2020-01-08] MEDS ORDERED: MIDAZOLAM 2 MG/2 ML INJ ONE (09:20)
[2020-01-08] MEDS: PREDNISOLONE ACETATE 1% OPH SUSP 5 ML OS PRN ×2 (09:41)
[2020-01-08] MEDS: DORZOLAMIDE HCL 2%/TIMOLOL MALEAT 0.5% OPH SOLN 10 ML OS PRN ×2 (09:41)
--- NOTE | 2020-01-08 12:25 | Operative Report ---
Operative Report-[facility] Operative Report: DATE OF SURGERY: 01/08/2020 PREOPERATIVE DIAGNOSIS: CATARACT, LEFT EYE. POSTOPERATIVE DIAGNOSIS: CATARACT, LEFT EYE. PROCEDURE PERFORMED: PHACOEMULSIFICATION WITH POSTERIOR CHAMBER INTRAOCULAR LENS, LEFT EYE. Intraocular Lens Model : DCBOO 20.0 Total Phaco Time: 11.15 CDE SURGEON: CASSIE ALCALA MD ANESTHESIA: TOPICAL WITH MAC. INDICATIONS FOR SURGERY: Difficultly driving at night PROCEDURE: The patient was brought to the Operating Room and placed on the operative table. Following tetracaine drops, topical anesthesia was administered. This consisted of instrument wipe pledgets soaked in a solution of 4% Xylocaine mixed with 0.75% Marcaine in a 1:2 ratio. A 2 x 1 cm pledget was placed in the superior fornix. A 1 x 1 cm pledget was placed in the inferior fornix. The eye was patched shut for 5 minutes. The patch was removed. The eye was sterilely prepped and draped in the usual manner. Lid speculum was placed in the eye. The pledgets were removed. 4-0 black silk sutures were placed around the superior and the inferior rectus muscles to be used as traction. A conjunctival peritomy was made at the 10 o'clock position. Hemostasis was obtained with bipolar cautery. A posterior limbal groove was created using a crescent knife and dissected anteriorly towards the cornea. A sharp point blade was used to create a paracentesis site at the 2 o'clock position. 0.2 cc non preserved Lidocaine was injected into the anterior chamber. A 2.4 mm keratome was used to enter the anterior chamber through the groove. Viscoelastic was injected into the anterior chamber. An anterior capsulotomy was performed using Utrata forceps in a capsulorrhexis fashion. Hydrodissection and hydrodelineation were performed. Phacoemulsification was performed in [id number] technique. Following this, the I/A unit was used to remove residual cortex. Viscoelastic was injected into the capsular bag. The Intraocular lens was placed in the capsular bag. The I/A unit was used to remove residual viscoelastic. The wound was seen to be watertight under high and low pressure, and no sutures were placed. The intraocular lens was well centered. The pressure was adjusted in the eye to normal pressure. The 4-0 black silk sutures and lid speculum were removed. The eye was shielded after Besivance,prednisolone, and Cosopt drops were placed. The patient tolerated the procedure well and was sent to the Recovery Room in good condition.
== END 2020-01-08 10:14 | disposition home or self-care (01) ==
LOC: SC 08:17
PROVIDERS: ATTEND Ophthalmology
DX: H25.812 Combined forms of age-related cataract, left eye (principal); E11.36 Type 2 diabetes mellitus with diabetic cataract; E78.00 Pure hypercholesterolemia, unspecified; J44.9 Chronic obstructive pulmonary disease, unspecified; M19.90 Unspecified osteoarthritis, unspecified site; N18.30 Chronic kidney disease, stage 3 unspecified; Z87.891 Personal history of nicotine dependence; E11.22 Type 2 diabetes mellitus with diabetic chronic kidney disease; I13.0 Hypertensive heart and chronic kidney disease with heart failure and stage 1 through stage 4 chronic kidney disease, or unspecified chronic kidney disease; I50.9 Heart failure, unspecified
CPT/HCPCS: 66984; 82962; V2632; J2250; J3490 ×4; J0171; J2405; J3010